=== PATIENT | female | born 1970 | race Caucasian/White ===

== ENCOUNTER 2016-11-16 19:12 | Inpatient (IN) | payer MEDICAID ==
[~2016-11-16] VITALS: Ht 170.2 cm; Wt 68.5 kg
[~2016-11-16 19:12] MED LIST: ALPR1TAB7; CEFP250T2 PO; FRNCD3C PO; HYDR-3816 PO; KETO75CA PO; LEVO125T6; LOSA50TA36 PO; LVT.025T PO; SIMV10TA3 PO; paxil
[2016-11-16] MEDS ORDERED: RX-NITROGLYCERIN 0.4 MG TAB BTL 25'S SL ONE (19:30)
[2016-11-16] MEDS ORDERED: ASPIRIN 81 MG CHEW (CHILDREN'S ASA) PO ONE (19:30)
[2016-11-16 19:32] LABS: BASOPHILS % (AUTO) 0 % (0-10); EOSINOPHILS # (AUTO) 0.3 10^3/uL (0.0-0.3); EOSINOPHILS % (AUTO) 3 % (0-10); LYMPHOCYTES # (AUTO) 3.6 X 10^3 (1.0-4.0); LYMPHOCYTES % (AUTO) 40 % (12-44); MEAN CORPUSCULAR HEMOGLOBIN 32 PG (25-34); MEAN CORPUSCULAR HGB CONC 34 G/DL (32-36); MEAN CORPUSCULAR VOLUME 92 FL (80-99); MEAN PLATELET VOLUME 10.2 FL (7.4-10.4); MONOCYTES # (AUTO) 0.7 X 10^3 (0.0-1.0); MONOCYTES % (AUTO) 8 % (0-12); NEUTROPHILS # (AUTO) 4.5 X 10^3 (1.8-7.8); NEUTROPHILS % (AUTO) 50 % (42-75); PLATELET COUNT 372 10^3/uL (130-400); RED BLOOD COUNT 3.99 10^6/uL (4.35-5.85); WHITE BLOOD COUNT 9.1 10^3/uL (4.3-11.0)
[2016-11-16 19:42] LABS: INR 0.9 (0.8-1.4)
--- NOTE | 2016-11-16 19:48 | Diagnostic Imaging Report ---
INDICATION: Chest pain. COMPARISON: None. FINDINGS: Portable upright view of the chest is obtained. Heart size is normal. The pulmonary vessels appear unremarkable. There is no pneumothorax, mediastinal widening or pleural fluid demonstrated. The lungs are clear. IMPRESSION: Negative chest. Dictated by: Dictated on workstation # [id number]
[2016-11-16 19:52] LABS: ALANINE AMINOTRANSFERASE 14 U/L (0-55); ALBUMIN 3.8 G/DL (3.2-4.5); ANION GAP 11 MMOL/L (5-14); ASPARTATE AMINO TRANSFERASE 15 U/L (5-34); BILIRUBIN,TOTAL 0.1 MG/DL (0.1-1.0); BLOOD UREA NITROGEN 8 MG/DL (7-18); BUN/CREATININE RATIO 11; CALCIUM 8.7 MG/DL (8.5-10.1); CARBON DIOXIDE 18 MMOL/L (21-32); CHLORIDE 107 MMOL/L (98-107); CREATININE SERUM 0.71 MG/DL (0.60-1.30); GFR ESTIMATED > 60; GLUCOSE 105 MG/DL (70-105); MAGNESIUM 2.2 MG/DL (1.8-2.4); SODIUM 136 MMOL/L (135-145); TOTAL PROTEIN 6.8 G/DL (6.4-8.2)
[2016-11-16] MEDS ORDERED: morphine INJ 10 MG/ML 1ML (SYR OR VIAL) IVP STA ×2 (19:52→20:59)
[2016-11-16 19:53] LABS: MYOGLOBIN SERUM 17.7 NG/ML (10.0-92.0)
--- NOTE | 2016-11-16 19:56 | ED Chest Pain ---
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 REPORTS PAIN MIDSTERNAL RADIATING INTO LT ARM. NO OTHER C/O VOICED Nursing Sepsis Screen: No Definite Risk Source: patient, family Exam Limitations: no limitations History of Present Illness Time seen by provider: 19:18 Initial Comments Here with report of central chest pain that radiates to her left arm and she reports that it's sharp and intense. It has been going on for 2 hours and has persisted. She had similar episode a few days ago that went away. Today it is not resolving. It is associated with shortness of breath but denies nausea, vomiting or diaphoresis. She has never had evaluation for chest pain previously. Timing/Duration: 1-3 hours Severity/Quality: moderate, severe, sharp Location: central Radiation: arms Activities at Onset: none Prior CP/Workup: no prior chest pain ASA po HOUSING DEVELOPMENT SPECIALIST: No NTG SL HOUSING DEVELOPMENT SPECIALIST: No Associated Symptoms: No abdominal pain, No back pain, No diaphoresis, No dizziness, No fever/chills, No nausea/vomiting, No rash, shortness of breathNo weakness Allergies and Home Medications Allergies Coded Allergies: Sulfa (Sulfonamide Antibiotics) (Unverified Allergy, Unknown, N/V, 11/15/14 ) acetaminophen (Unverified Allergy, Unknown, DIZZY, FACE FLUSH, 11/15/14) oxycodone (Unverified Allergy, Unknown, DIZZY, FACE FLUSHES, 11/15/14) oxycodone HCl (Unverified Allergy, Unknown, DIZZY, FACE FLUSH, 11/15/14) tramadol (Unverified Allergy, Unknown, N/V, 11/15/14) Home Medications (Reported) Alprazolam 1 Mg Tablet #120 (Reported) Butalbital/Asa/Caffeine/Cod 1 Ea Cap 1 EACH PO Q4HR PRN (Reported) FOR HEADACHES Hydrocodone/Acetaminophen 1 Each Tablet #10 1 EACH PO Q6H Prescribed by: LIU FIELD on 02/28/16 1330 Levothyroxine Sodium 25 Mcg Tablet 3 EACH PO DAILY (Reported) Levothyroxine Sodium 125 Mcg Tablet #90 (Reported) Losartan Potassium 50 Mg Tablet #30 (Reported) Simvastatin 10 Mg Tablet #30 (Reported) Review of Systems Constitutional: see HPINo chills, No fever EENTM: No Symptoms Reported Respiratory: See HPI Cardiovascular: See HPI Gastrointestinal: See HPIDenies Diarrhea, Denies Nausea, Denies Vomiting Genitourinary: No Symptoms Reported Musculoskeletal: no symptoms reported All Other Systems Reviewed Negative Unless Noted: Yes Past Docwuri-Wjkufj-Dymomp Hx Patient Social History Alcohol Use: Denies Use Recreational Drug Use: No Smoking Status: Current Everyday Smoker Type Used: Cigarettes Recent Foreign Travel: No Contact w/Someone Who Travel: No Recent Infectious Disease Expo: No Recent Hopitalizations: No Surgeries HX Surgeries: Yes (cyst removal) Surgeries: Appendectomy, Hysterectomy Respiratory Hx Respiratory Disorders: No Cardiovascular Hx Cardiac Disorders: Yes Cardiac Disorders: Hypertension Neurological Hx Neurological Disorders: Yes Neurological Disorders: Headaches /Migraines Reproductive System Hx Reproductive Disorders: Yes (IRREGULAR PERIODS, DUB, UTERINE PROLAPSE) Genitourinary Hx Genitourinary Disorders: No Gastrointestinal Hx Gastrointestinal Disorders: No Musculoskeletal Hx Musculoskeletal Disorders: No Endocrine Hx Endocrine Disorders: Yes Endocrine Disorders: Hypothyroidsim HEENT HX ENT Disorders: No Cancer Hx Cancer: Yes Cancer: Melanoma Psychosocial Hx Psychiatric Problems: Yes Behavioral Health Disorders: Anxiety Integumentary HX Skin/Integumentary Disorder: No Blood Transfusions Hx Blood Disorders: Yes (anemia) Adverse Reaction to a Blood Tr: No Reviewed Nursing Assessment Reviewed/Agree w Nursing PMH: Yes Family Medical History Significant Family History: No Pertinent Family Hx Physical Exam Vital Signs Vital Sign - Last 12Hours 11/16/16 19:17 Temp 98.3 Pulse 89 Resp 24 B/P 169/110 Pulse Ox 95 O2 Delivery Room Air Capillary Refill : Less Than 3 Seconds General Appearance: No Apparent Distress WD/WN HEENT: PERRL/EOMI Pharynx Normal Neck: Non Tender Supple Respiratory: Lungs Clear Normal Breath Sounds Cardiovascular: Regular Rate, Rhythm No Murmur Normal Peripheral Pulses Gastrointestinal: Non Tender Soft Extremity: Normal Range of Motion Non Tender Neurologic/Psychiatric: Alert Oriented x3 Skin: Normal Color Warm/Dry Focused Exam Lactic Acid Level Laboratory Tests Test 11/16/16 19:23 Alanine Aminotransferase (ALT/SGPT) 14U/L (0-55) Albumin 3.8G/DL (3.2-4.5) Alkaline Phosphatase 156U/L (40-136) H Anion Gap 11MMOL/L (5-14) Aspartate Amino Transf (AST/SGOT) 15U/L (5-34) BUN/Creatinine Ratio 11 Blood Urea Nitrogen 8MG/DL (7-18) Calcium Level 8.7MG/DL (8.5-10.1) Carbon Dioxide Level 18MMOL/L (21-32) L Chloride Level 107MMOL/L (98-107) Creatinine 0.71MG/DL (0.60-1.30) Estimat Glomerular Filtration Rate > 60 Glucose Level 105MG/DL (70-105) Magnesium Level 2.2MG/DL (1.8-2.4) Myoglobin 17.7NG/ML (10.0-92.0) Potassium Level 4.0MMOL/L (3.6-5.0) Sodium Level 136MMOL/L (135-145) Thyroid Stimulating Hormone (TSH) 4.98UIU/ML (0.35-4.94) H Total Bilirubin 0.1MG/DL (0.1-1.0) Total Protein 6.8G/DL (6.4-8.2) Troponin I < 0.30NG/ML (<0.30) Progress/Results/Core Measures Results/Orders Lab Results Laboratory Tests Test 11/16/16 19:23 Range/Units Activated Partial Thromboplast Time 24 24-35 SEC Alanine Aminotransferase (ALT/SGPT) 14 0-55 U/L Albumin 3.8 3.2-4.5 G/DL Alkaline Phosphatase 156 H 40-136 U/L Anion Gap 11 5-14 MMOL/L Aspartate Amino Transf (AST/SGOT) 15 5-34 U/L BUN/Creatinine Ratio 11 Basophils # (Auto) 0.0 0.0-0.1 10^3/uL Basophils (%) (Auto) 0 0-10 % Blood Urea Nitrogen 8 7-18 MG/DL Calcium Level 8.7 8.5-10.1 MG/DL Carbon Dioxide Level 18 L 21-32 MMOL/L Chloride Level 107 98-107 MMOL/L Creatinine 0.71 0.60-1.30 MG/DL D-Dimer 0.59 H 0.00-0.49 UG/ML Eosinophils # (Auto) 0.3 0.0-0.3 10^3/uL Eosinophils (%) (Auto) 3 0-10 % Estimat Glomerular Filtration Rate > 60 Glucose Level 105 70-105 MG/DL Hematocrit 37 35-52 % Hemoglobin 12.6 11.5-16.0 G/DL INR Comment 0.9 0.8-1.4 Lymphocytes # (Auto) 3.6 1.0-4.0 X 10^3 Lymphocytes (%) (Auto) 40 12-44 % Magnesium Level 2.2 1.8-2.4 MG/DL Mean Corpuscular Hemoglobin 32 25-34 PG Mean Corpuscular Hemoglobin Concent 34 32-36 G/DL Mean Corpuscular Volume 92 80-99 FL Mean Platelet Volume 10.2 7.4-10.4 FL Monocytes # (Auto) 0.7 0.0-1.0 X 10^3 Monocytes (%) (Auto) 8 0-12 % Myoglobin 17.7 10.0-92.0 NG/ML Neutrophils # (Auto) 4.5 1.8-7.8 X 10^3 Neutrophils (%) (Auto) 50 42-75 % Platelet Count 372 130-400 10^3/uL Potassium Level 4.0 3.6-5.0 MMOL/L Prothrombin Time 12.0 L 12.2-14.7 SEC Red Blood Count 3.99 L 4.35-5.85 10^6/uL Red Cell Distribution Width 15.0 H 10.0-14.5 % Sodium Level 136 135-145 MMOL/L Thyroid Stimulating Hormone (TSH) 4.98 H 0.35-4.94 UIU/ML Total Bilirubin 0.1 0.1-1.0 MG/DL Total Protein 6.8 6.4-8.2 G/DL Troponin I < 0.30 <0.30 NG/ML White Blood Count 9.1 4.3-11.0 10^3/uL My Orders Orders-LIU FIELD MD Cbc With Automated Diff (11/16/16 19:26) Magnesium (11/16/16 19:26) Chest 1 View, Ap/Pa Only (11/16/16 19:26) Ekg Tracing (11/16/16 19:26) Cardiac Profile 1 (11/16/16 19:26) Comprehensive Metabolic Panel (11/16/16 19:26) Myoglobin Serum (11/16/16 19:26) Protime With Inr (11/16/16 19:26) Partial Thromboplastin Time (11/16/16 19:26) O2 (11/16/16 19:26) Monitor-Rhythm Ecg Trace Only (11/16/16 19:26) Lipid Panel (11/17/16 06:00) Aspirin Chewable Tablet (Baby Aspirin Ch (11/16/16 19:30) Rx-Nitroglycerin Sl Tabs (Rx-Nitrostat S (11/16/16 19:30) Saline Lock/Iv-Start (11/16/16 19:26) Fibrin Degradation Products (11/16/16 19:26) Morphine Injection (Morphine Injection (11/16/16 19:52) Thyroid Stimulating Hormone (11/16/16 19:56) Ct Angio Chest W (11/16/16 20:56) Saline Lock/Iv-Start (11/16/16 20:56) Ns Iv 1000 Ml (Sodium Chloride 0.9%) (11/16/16 20:56) Ketorolac Injection (Toradol Injection) (11/16/16 20:59) Morphine Injection (Morphine Injection (11/16/16 20:59) Iohexol Injection (Omnipaque 350 Mg/Ml 1 (11/16/16 21:15) Ns (Ivpb) (Sodium Chloride 0.9% Ivpb Bag (11/16/16 21:15) Metoprolol Succinate (Xl) Tab (Toprol Xl (11/16/16 22:45) Medications Given in ED Current Medications Medications Dose Ordered Sig/Sandra Route Start Time Stop Time Status Last Admin Dose Admin Aspirin 324 mg ONCE ONCE PO 11/16/16 19:30 11/16/16 19:31 DC 11/16/16 19:33 324 MG Iohexol 150 ml ONCE ONCE IV 11/16/16 21:15 11/16/16 21:16 DC 11/16/16 21:14 125 ML Metoprolol Succinate 25 mg ONCE ONCE PO 11/16/16 22:45 11/16/16 22:46 DC 11/16/16 22:45 25 MG Nitroglycerin 0.4 mg 0.4 mg UD ONCE SL 11/16/16 19:30 11/16/16 19:31 DC 11/16/16 19:33 0.4 MG Sodium Chloride 100 ml ONCE ONCE IV 11/16/16 21:15 11/16/16 21:16 DC 11/16/16 21:14 80 ML Sodium Chloride 1,000 ml @ 0 mls/hr Q0M ONCE IV 11/16/16 20:56 11/16/16 20:58 DC 11/16/16 21:53 1,000 MLS/HR Vital Signs/I&O Vital Sign - Last 12Hours 11/16/16 19:17 Temp 98.3 Pulse 89 Resp 24 B/P 169/110 Pulse Ox 95 O2 Delivery Room Air Blood Pressure Mean: 129 Progress Note : Progress Note Seen and evaluated. IV, labs, EKG and chest x-ray ordered. ASA 324 mg by mouth and nitroglycerin sublingual ordered. She did receive 3 doses which did reduce her pain and blood pressure but did not resolve it. Morphine 2 mg IV ordered. Monitor patient. Patient complains of persistent pain and was given morphine 4 mg IV as well as Toradol 30 mg IV and she did not have resolution of her pain. Labs, EKG and chest x-ray reviewed. CT chest angiogram ordered for elevated d-dimer. This did not show any pulmonary embolism but there is concerns about pneumonitis. 2235: I did discuss the case with Dr. HART regarding persistent chest pain. We will admit the patient, observation status. Consult Dr. Trejo which was done and case reviewed with him. Dr. Faustin will be consulted in the morning regarding pneumonitis concerns. Patient and family agree with plan. ECG Initial ECG Impression Date: Nov 16, 2016 Initial ECG Impression Time: 19:22 Initial ECG Rate: 81 Initial ECG Rhythm: Normal Sinus Comment Sinus rhythm with normal axis. Inferior Q waves noted. Question of mild ST depression in V2 through V4. No evidence of ST elevation ND. Interpreted by me. Diagnostic Imaging Diagonstic Imaging: Xray Plain Films/CT/US/NM/MRI: chest Comments NAME: RADHATRACIEELIANA Kothari MED REC#: [id number] PT STATUS: REG ER : 1970 PHYSICIAN: LIU FIELD MD ADMIT DATE: 11/16/16/ER Signed Date of Exam: 11/16/16 CHEST 1 VIEW, AP/PA ONLY INDICATION: Chest pain. COMPARISON: None. FINDINGS: Portable upright view of the chest is obtained. Heart size is normal. The pulmonary vessels appear unremarkable. There is no pneumothorax, mediastinal widening or pleural fluid demonstrated. The lungs are clear. IMPRESSION: Negative chest. Dictated by: Dictated on workstation # [id number] Dict: 11/16/161945 Trans: 11/16/161953 [facility] [id number] Interpreted by: ROSE KAPOOR DO Electronically signed by:ROSE KAPOOR DO 11/16/161955 Departure Communication Time/Spoke to Admitting Phy: 22:32 Time/Spoke to Consulting Physi: 22:35 Impression Impression: Primary Impression: Chest pain Qualified Code: R07.9 - Chest pain, unspecified Additional Impression: Pneumonitis Disposition: ADMITTED INPATIENT Condition: Stable Decision to Admit Reason: Admit from ER (General) Decision to Admit/Date: Nov 16, 2016 Time/Decision to Admit Time: 22:35 Departure-Patient Inst. Referrals: NO,LOCAL PHYSICIAN (PCP/Family) Primary Care Physician LIU FIELD MD Nov 16, 2016 19:56
[2016-11-16] MEDS ORDERED: NS IV 1000 ML 1,000 ML IV ONE (20:56)
[2016-11-16] MEDS ORDERED: KETOROLAC 30 MG/ML VIAL IVP STA (20:59)
[2016-11-16] MEDS ORDERED: NS 100 ML (IVPB) BAG IV ONE (21:15)
[2016-11-16] MEDS ORDERED: IOHEXOL 350 MG/ML 150 ML (OMNIPAQUE 350) VIAL IV ONE (21:15)
--- NOTE | 2016-11-16 21:45 | Diagnostic Imaging Report ---
PROCEDURE: CT angiography of the chest with contrast. TECHNIQUE: Multiple contiguous axial images were obtained through the chest after uneventful bolus administration of intravenous contrast. Reconstructed CTA MIP acquisitions were also performed. INDICATION: Left arm numbness and chest pain. FINDINGS: There is adequate opacification demonstrated of the pulmonary arterial tree. There is no evidence of a pulmonary arterial defect to suggest a pulmonary embolism. There is mild dilation of the ascending aorta measuring up to 42 mm. There is no dissection. There is no pericardial effusion. There is no evidence of pathologic enlargement of mediastinal lymph nodes. There are small AP window nodes present which are not enlarged. There is dependent atelectasis demonstrated at the lung bases. There also however is a subtle suggestion of a diffuse abnormal alveolar airspace opacification demonstrated predominantly within the upper lungs. There are a few peripheral changes of paraseptal emphysema within both lungs. There is no effusion. There is no pneumothorax. The visualized portion of the upper abdomen is unremarkable. There are no acute osseous abnormalities. IMPRESSION: 1. No CT angiographic evidence of pulmonary embolus. 2. Ascending aortic ectasia without dissection. 3. There are diffuse regions of abnormal subtle low density alveolar opacification demonstrated throughout the lungs suggesting a diffuse pneumonitis. Given this appearance, considerations would also include entities such as a hypersensitivity pneumonia or early eosinophilic pneumonia. 4. No pathologic adenopathy evident. 5. Upper abdomen is unremarkable. Dictated by: Dictated on workstation # [id number]
[2016-11-16] MEDS ORDERED: ONDANSETRON 4 MG/2 ML (SDV) Z0FRAN IV PRN (23:45)
[2016-11-16] MEDS ORDERED: morphine INJ 4 MG/ML 1 ML (VIAL/SYRINGE) IV PRN (23:45)
[2016-11-16] MEDS ORDERED: NS IV 1000 ML 1,000 ML IV SCH (23:45)
[2016-11-16] MEDS ORDERED: CATHETER FLUSH 10 ML SYR IV PRN (23:45)
[2016-11-17] VITALS (14 sets, daily range): BP systolic 92–157; BP diastolic 73–93
[2016-11-17 02:58] LABS: MYOGLOBIN SERUM 574.7 NG/ML (10.0-92.0)
[2016-11-17] MEDS ORDERED: ENOXAPARIN 80 MG/0.8 ML (LOVENOX) SYR SC ONE (03:15)
[2016-11-17] MEDS: NITROGLYCERIN SUBLINGUAL 0.4 MG TAB (NITROSTAT) SL PRN ×3 (04:43→05:14)
[2016-11-17 05:16] LABS: BASOPHILS % (AUTO) 0 % (0-10); EOSINOPHILS # (AUTO) 0.2 10^3/uL (0.0-0.3); EOSINOPHILS % (AUTO) 3 % (0-10); LYMPHOCYTES # (AUTO) 3.5 X 10^3 (1.0-4.0); LYMPHOCYTES % (AUTO) 45 % (12-44); MEAN CORPUSCULAR HEMOGLOBIN 31 PG (25-34); MEAN CORPUSCULAR HGB CONC 33 G/DL (32-36); MEAN CORPUSCULAR VOLUME 94 FL (80-99); MEAN PLATELET VOLUME 10.1 FL (7.4-10.4); MONOCYTES # (AUTO) 0.7 X 10^3 (0.0-1.0); MONOCYTES % (AUTO) 9 % (0-12); NEUTROPHILS # (AUTO) 3.4 X 10^3 (1.8-7.8); NEUTROPHILS % (AUTO) 44 % (42-75); PLATELET COUNT 327 10^3/uL (130-400); RED BLOOD COUNT 3.61 10^6/uL (4.35-5.85); RED CELL DISTRIBUTION WIDTH 15.2 % (10.0-14.5); WHITE BLOOD COUNT 7.8 10^3/uL (4.3-11.0)
[2016-11-17 05:37] LABS: ALANINE AMINOTRANSFERASE 15 U/L (0-55); ALBUMIN 3.2 G/DL (3.2-4.5); ANION GAP 8 MMOL/L (5-14); ASPARTATE AMINO TRANSFERASE 35 U/L (5-34); BILIRUBIN,TOTAL < 0.1 MG/DL (0.1-1.0); BLOOD UREA NITROGEN 6 MG/DL (7-18); BUN/CREATININE RATIO 9; CALCIUM 8.1 MG/DL (8.5-10.1); CARBON DIOXIDE 19 MMOL/L (21-32); CHLORIDE 111 MMOL/L (98-107); CREATININE SERUM 0.66 MG/DL (0.60-1.30); GFR ESTIMATED > 60; GLUCOSE 107 MG/DL (70-105); POTASSIUM 3.9 MMOL/L (3.6-5.0); SODIUM 138 MMOL/L (135-145); TOTAL PROTEIN 5.7 G/DL (6.4-8.2)
[2016-11-17 05:54] LABS: CHOLESTEROL 185 MG/DL (< 200); DIRECT LDL 81 MG/DL (1-129); TRIGLYCERIDES 209 MG/DL (<150); VLDL CHOLESTEROL 42 MG/DL (5-40)
[2016-11-17] MEDS: CATHETER FLUSH 10 ML SYR IV SCH ×3 (06:00→20:35)
[2016-11-17] MEDS ORDERED: LIDOCAINE 1% INJ 20 ML (XYLOCAINE) VIAL ONE (07:06)
[2016-11-17] MEDS ORDERED: HEParin (CATH LAB) 2,000 ML IV ONE (07:06)
[2016-11-17] MEDS ORDERED: fentaNYL INJECTION 100 MCG/2 ML AMP ONE (07:12)
[2016-11-17] MEDS ORDERED: MIDAZOLAM 5 MG/5 ML (VERSED) VIAL ONE (07:12)
--- NOTE | 2016-11-17 07:12 | Consultation-Cardiology ---
HPI-Cardiology Cardiology Consultation Date of Consultation 11/17/16 Date of Admission Indication: Chest pain HPI 46 years old lady with history of hypertension, hyperlipidemia and tobaccoism, patient started having chest pain on and off yesterday, described it as achiness in the retrosternal area and left side of her chest. Admit having mild shortness of breath continue to wax and wane. Continue to have active pain despite nitroglycerin. Her first troponin was negative second troponin returned to be elevated. Upon my evaluation she was still having mild chest discomfort. She denied any palpitation, syncope or near syncopal episodes. Denied any claudication. Home Medications & Allergies Allergies: Coded Allergies: Sulfa (Sulfonamide Antibiotics) (Unverified Allergy, Unknown, N/V, 11/15/14 ) acetaminophen (Unverified Allergy, Unknown, DIZZY, FACE FLUSH, 11/15/14) oxycodone (Unverified Allergy, Unknown, DIZZY, FACE FLUSHES, 11/15/14) oxycodone HCl (Unverified Allergy, Unknown, DIZZY, FACE FLUSH, 11/15/14) tramadol (Unverified Allergy, Unknown, N/V, 11/15/14) Home Medication List Reviewed: Yes MYJ-Oondfs-Pbllct Hx Patient Social History Alcohol Use: Denies Use Recreational Drug Use: No Smoking Status: Current Everyday Smoker Type Used: Cigarettes Recent Foreign Travel: No Recent Infectious Disease Expo: No Recent Hopitalizations: No Physical Abuse Screen: No Sexual Abuse: No Immunizations Up To Date Date of Influenza Vaccine: Nov 13, 2016 Past Medical History Past medical history as discussed below Family Medical History Significant Family History: No Pertinent Family Hx Family Medical Hx Multiple family member from mother's side had history of heart disease Constitutional: no symptoms reported see HPI EENTM: no symptoms reported see HPI Respiratory: see HPINo cough, dyspnea on exertionNo hemoptysis, No orthopnea , No phlegm, short of breathNo stridor, No wheezing, No other Cardiovascular: see HPI chest painNo edema, No Hx of Intervention, No palpitations, No syncope, No vascular heart diseas, No other Gastrointestinal: no symptoms reported see HPI Genitourinary: no symptoms reported see HPI Musculoskeletal: no symptoms reported see HPI Skin: no symptoms reported see HPI Psychiatric/Neurological: No Symptoms Reported See HPI Reviewed Test Results Reviewed Test Results Lab Laboratory Tests Test 11/16/16 19:23 11/17/16 02:25 11/17/16 05:00 Range/Units Activated Partial Thromboplast Time 24 24-35 SEC Alanine Aminotransferase (ALT/SGPT) 14 15 0-55 U/L Albumin 3.8 3.2 3.2-4.5 G/DL Alkaline Phosphatase 156 H 134 40-136 U/L Anion Gap 11 8 5-14 MMOL/L Aspartate Amino Transf (AST/SGOT) 15 35 H 5-34 U/L BUN/Creatinine Ratio 11 9 Basophils # (Auto) 0.0 0.0 0.0-0.1 10^3/uL Basophils (%) (Auto) 0 0 0-10 % Blood Urea Nitrogen 8 6 L 7-18 MG/DL Calcium Level 8.7 8.1 L 8.5-10.1 MG/DL Carbon Dioxide Level 18 L 19 L 21-32 MMOL/L Chloride Level 107 111 H 98-107 MMOL/L Creatinine 0.71 0.66 0.60-1.30 MG/DL D-Dimer 0.59 H 0.00-0.49 UG/ML Eosinophils # (Auto) 0.3 0.2 0.0-0.3 10^3/uL Eosinophils (%) (Auto) 3 3 0-10 % Estimat Glomerular Filtration Rate > 60 > 60 Glucose Level 105 107 H 70-105 MG/DL Hematocrit 37 34 L 35-52 % Hemoglobin 12.6 11.3 L 11.5-16.0 G/DL INR Comment 0.9 0.8-1.4 Lymphocytes # (Auto) 3.6 3.5 1.0-4.0 X 10^3 Lymphocytes (%) (Auto) 40 45 H 12-44 % Magnesium Level 2.2 1.8-2.4 MG/DL Mean Corpuscular Hemoglobin 32 31 25-34 PG Mean Corpuscular Hemoglobin Concent 34 33 32-36 G/DL Mean Corpuscular Volume 92 94 80-99 FL Mean Platelet Volume 10.2 10.1 7.4-10.4 FL Monocytes # (Auto) 0.7 0.7 0.0-1.0 X 10^3 Monocytes (%) (Auto) 8 9 0-12 % Myoglobin 17.7 574.7 H 10.0-92.0 NG/ML Neutrophils # (Auto) 4.5 3.4 1.8-7.8 X 10^3 Neutrophils (%) (Auto) 50 44 42-75 % Platelet Count 372 327 130-400 10^3/uL Potassium Level 4.0 3.9 3.6-5.0 MMOL/L Prothrombin Time 12.0 L 12.2-14.7 SEC Red Blood Count 3.99 L 3.61 L 4.35-5.85 10^6/uL Red Cell Distribution Width 15.0 H 15.2 H 10.0-14.5 % Sodium Level 136 138 135-145 MMOL/L Thyroid Stimulating Hormone (TSH) 4.98 H 0.35-4.94 UIU/ML Total Bilirubin 0.1 < 0.1 L 0.1-1.0 MG/DL Total Protein 6.8 5.7 L 6.4-8.2 G/DL Troponin I < 0.30 2.96 *H <0.30 NG/ML White Blood Count 9.1 7.8 4.3-11.0 10^3/uL Cholesterol Level 185 < 200 MG/DL HDL Cholesterol 37 L 40-60 MG/DL LDL Cholesterol Direct 81 1-129 MG/DL Triglycerides Level 209 H <150 MG/DL VLDL Cholesterol 42 H 5-40 MG/DL Physical Exam Vital Signs Vital Sign - Last 12Hours Capillary Refill : Less Than 3 Seconds General Appearance: No Apparent Distress WD/WN Eyes: Bilateral Eye EOMI, Bilateral Eye Normal Inspection, Bilateral Eye PERRL HEENT: PERRL/EOMI TMs Normal Normal ENT Inspection Pharynx Normal Neck: Full Range of Motion Normal Inspection Non Tender Supple Carotid Bruit Respiratory: Chest Non Tender Lungs Clear Normal Breath Sounds No Accessory Muscle Use No Respiratory Distress Cardiovascular: Regular Rate, Rhythm No Edema No Gallop No JVD No Murmur Normal Peripheral Pulses Gastrointestinal: Normal Bowel Sounds No Organomegaly No Pulsatile Mass Non Tender Soft Back: Normal Inspection No CVA Tenderness No Vertebral Tenderness Extremity: Normal Capillary Refill Normal Inspection Normal Range of Motion Non Tender No Calf Tenderness No Pedal Edema Neurologic/Psychiatric: Alert Oriented x3 No Motor/Sensory Deficits Normal Mood/Affect Skin: Normal Color Warm/Dry Lymphatic: No Adenopathy A/P-Cardiology Admission Diagnosis Non-ST elevation elevation myocardial infarction Coronary artery disease Hypertension Hyperlipidemia Assessment/Plan Non-ST elevation myocardial infarction, coronary artery disease. Still having active chest pain. Planning to proceed with cardiac catheterization today. Chest pain, shortness of breath, probably secondary to coronary artery disease planning to proceed with a cardiac catheterization today. Hypertension, monitor blood pressure, patient has been on losartan as an outpatient restart home medication Hyperlipidemia, has been on simvastatin as an outpatient. Mildly elevated lipids. Planning to switch to Lipitor. Tobaccoism, educated on smoking cessation Family history of atherosclerosis Clinical Quality Measures AMI/AHF: ASA po Prior to arrival: No DVT/VTE Risk/Contraindication: Risk Factor Score Per Nursin RFS Level Per Nursing on Admit: 2=Moderate JAILENE MILLER MD Nov 17, 2016 07:12
--- NOTE | 2016-11-17 07:12 | Cardiac Procedure Note-CS/ASA ---
Pre-Procedure Note Pre-Op Procedure Note H&P Reviewed The H&P was reviewed, patient examined and no changes noted. Date H&P Reviewed: Nov 17, 2016 Time H&P Reviewed: 07:12 Conscious Sedation Pre-Proced Time Reviewed: 07:12 ASA Class: 3 Airway Mallampati Classification: ([place] appropriate class) I. II. III, IV Lungs Heart ASA score ASA 1: a normal healthy patient ASA 2: a patient with a mild systemic disease (mid diabetes, controlled hypertension, obesity x ASA 3: a patient with a severe systemic disease that limits activity (angina , COPD, prior Myocardial infarction) ASA 4: a patient with an incapacitating disease that is a constant threat to life (CHF, renal failure) ASA 5: a moribund patient not expected to survive 24 hrs. (ruptured aneurysm) ASA 6: a declared brain patient whose organs are being harvested. For emergent operations, add the letter E after the classification Grade 3 Sedation Plan: Analgesia, Amnesia, Plan communicated to team members, Discussed options with patient/fam, Discussed risks with patient/fam Note The patient is an appropriate candidate to undergo the planned procedure, sedation, and anesthesia. The patient immediately re-assessed prior to indication. JAILENE MILLER MD Nov 17, 2016 07:12
[2016-11-17] MEDS ORDERED: NS IV 1000 ML 1,000 ML IV SCH (07:15)
--- NOTE | 2016-11-17 07:16 | Pulmonary Consultation ---
History of Present Illness History of Present Illness Date of Consultation 11/17/16 07:11 Date of Admission History of Present Illness 46yo presented secondary to central CP with radiation to left arm that started 2 hrs prior to admission and progressive SOB. She had similar episode a few days ago that went away. CT scan shows patchy bilateral infiltrates bilaterally. Allergies and Home Medications Allergies Coded Allergies: Sulfa (Sulfonamide Antibiotics) (Unverified Allergy, Unknown, N/V, 11/15/14 ) acetaminophen (Unverified Allergy, Unknown, DIZZY, FACE FLUSH, 11/15/14) oxycodone (Unverified Allergy, Unknown, DIZZY, FACE FLUSHES, 11/15/14) oxycodone HCl (Unverified Allergy, Unknown, DIZZY, FACE FLUSH, 11/15/14) tramadol (Unverified Allergy, Unknown, N/V, 11/15/14) Home Medications (Reported) Alprazolam 1 Mg Tablet #120 (Reported) Butalbital/Asa/Caffeine/Cod 1 Ea Cap 1 EACH PO Q4HR PRN (Reported) FOR HEADACHES Hydrocodone/Acetaminophen 1 Each Tablet #10 1 EACH PO Q6H Prescribed by: LIU FIELD on 02/28/16 1330 Levothyroxine Sodium 25 Mcg Tablet 3 EACH PO DAILY (Reported) Levothyroxine Sodium 125 Mcg Tablet #90 (Reported) Losartan Potassium 50 Mg Tablet #30 (Reported) Simvastatin 10 Mg Tablet #30 (Reported) Past Rnxmoxe-Hppeaw-Hkqjyg Hx Patient Social History Alcohol Use: Denies Use Recreational Drug Use: No Smoking Status: Current Everyday Smoker Type Used: Cigarettes Recent Foreign Travel: No Contact w/Someone Who Travel: No Recent Infectious Disease Expo: No Recent Hopitalizations: No Physical Abuse Screen: No Sexual Abuse: No Immunizations Up To Date PED Vaccines UTD: Yes Date of Influenza Vaccine: Nov 13, 2016 Seasonal Allergies Seasonal Allergies: Yes Surgeries HX Surgeries: Yes (cyst removal) Surgeries: Appendectomy, Hysterectomy Respiratory Hx Respiratory Disorders: No Cardiovascular Hx Cardiac Disorders: Yes Cardiac Disorders: Hypertension Neurological Hx Neurological Disorders: Yes Neurological Disorders: Headaches /Migraines Reproductive System Hx Reproductive Disorders: Yes (IRREGULAR PERIODS, DUB, UTERINE PROLAPSE) Genitourinary Hx Genitourinary Disorders: No Gastrointestinal Hx Gastrointestinal Disorders: No Musculoskeletal Hx Musculoskeletal Disorders: No Musculoskeletal Disorders: Degenerate Disk Disease, Chronic Back Pain Endocrine Hx Endocrine Disorders: Yes Endocrine Disorders: Hypothyroidsim HEENT HX ENT Disorders: No Cancer Hx Cancer: Yes Cancer: Skin Psychosocial Hx Psychiatric Problems: Yes Behavioral Health Disorders: Anxiety Integumentary HX Skin/Integumentary Disorder: No Blood Transfusions Hx Blood Disorders: Yes (anemia) Adverse Reaction to a Blood Tr: No Reviewed Nursing Assessment Reviewed/Agree w Nursing PMH: Yes Family Medical History Significant Family History: No Pertinent Family Hx Exam Exam Vital Signs Date Time Temp Pulse Resp B/P Pulse Ox O2 Delivery O2 Flow Rate FiO2 11/17/16 04:04 97.5 63 140/91 18 Room Air 11/17/16 00:57 62 11/17/16 00:04 96.6 63 18 157/90 98 Room Air 11/16/16 23:56 63 11/16/16 23:56 97 Nasal Cannula 11/16/16 23:00 63 18 96 11/16/16 19:17 Room Air 11/16/16 19:17 98.3 89 24 169/110 95 Room Air I & O 11/17/16 07:00 Intake Total 300 ml Balance 300 ml General Appearance: No Apparent Distress WD/WN HEENT: PERRL/EOMI Pharynx Normal Neck: Non Tender Supple Respiratory: Lungs Clear Normal Breath Sounds Cardiovascular: Regular Rate, Rhythm No Murmur Normal Peripheral Pulses Capillary Refill: Less Than 3 Seconds Extremity: Normal Range of Motion Non Tender Neurologic/Psychiatric: Alert Oriented x3 Skin: Normal Color Warm/Dry Results Lab Laboratory Tests 11/16/16 19:23 11/17/16 05:00 Assessment/Plan Assessment/Plan NSTEMI - 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
[2016-11-17] MEDS ORDERED: AZITHROMYCIN INJECTION 500 MG in NS (IVPB) 250 ML IV NR (07:30)
[2016-11-17] MEDS ORDERED: HEParin 1000 UNIT/ML (10ML VIAL) FOR BOLUS ONE (07:50)
[2016-11-17] MEDS ORDERED: NITROGLYCERIN DRIP 25 MG/D5W 250 ML IV ONE (07:50)
[2016-11-17] MEDS ORDERED: EPTIFIBATIDE BOLUS 20 ML IV ONE (07:52)
[2016-11-17] MEDS ORDERED: ATROPINE INJECTION 1 MG/10 ML SYR (ABBOTT) ONE (08:08)
[2016-11-17] MEDS ORDERED: ASPIRIN 81 MG CHEW (CHILDREN'S ASA) ONE (08:21)
[2016-11-17] MEDS ORDERED: NABU500T PO (08:22)
[2016-11-17] MEDS ORDERED: LEVO150T6 PO (08:22)
[2016-11-17] MEDS ORDERED: PANT40TA3 PO (08:22)
[2016-11-17] MEDS ORDERED: BUTA1CAP3 PO (08:22)
[2016-11-17] MEDS ORDERED: PARO40TA3 PO (08:22)
[2016-11-17] MEDS ORDERED: CHLO500T4 PO (08:22)
[2016-11-17] MEDS ORDERED: DICL75TA2 PO (08:22)
[2016-11-17] MEDS ORDERED: PATIENT MAY USE OWN MEDS, ALL PO SCH (08:30)
[2016-11-17] MEDS: TICAGRELOR 90 MG TABLET (BRILINTA) PO SCH ×2 (09:00→21:30)
[2016-11-17] MEDS: ASPIRIN E.C. 81 MG (ECOTRIN) TAB PO SCH (09:00)
[2016-11-17] MEDS ORDERED: ASPIRIN E.C. 325 MG (ECOTRIN) TABLET PO SCH (09:00)
--- NOTE | 2016-11-17 09:48 | CARDIAC CATHETERIZATION ---
PROCEDURE PHYSICIAN: JAILENE MILLER DATE OF PROCEDURE: 11/17/2016 REFERRING PHYSICIAN: Dr. Chatman. BRIEF HISTORY: Mrs. Jamison is a 46-year-old lady admitted with acute myocardial infarction, non-ST elevation [place]. She continued to have chest pain. She was brought for emergency cardiac catheterization. PROCEDURE NOTE: After explaining the procedure to the patient, all pros and cons were explained. All questions were answered. The patient signed a consent, then she was placed on the cardiac catheterization laboratory. The right groin was prepped in a sterile fashion. Local anesthesia applied to the right groin. 6-Kinyarwanda sheath was placed in the right femoral artery. Combination of right and left Danie catheter were used to access the right and left coronary system. Multiple views were obtained. Pigtail catheter advanced to the left ventricular cavity. Left ventriculogram was done. Pullback LV to aorta was done. Aortic arch angiogram was done. At that point I decided to proceed with percutaneous intervention. The patient was given 5000 units of heparin double bolus of Integrilin. FL 4.0 guide was advanced to the left coronary system. Whisper extra support was advanced through the circumflex that was totally occluded at the second obtuse marginal branch. After multiple manipulations I was able to cross the lesion, I advanced 20 x 15 Emerge balloon, passed it through the occluded area without inflating the balloons and then repeat angiogram showed flow in that area. Then I placed a balloon and inflated it. Then I proceeded with deployment of Xience Alpine stent 2.5 x 18 mm positioned carefully, deployed under 14 atmospheres which dilated the stent to 2.68 mm. The proximal portion was in the proper circumflex artery, which was the larger artery so I advanced 3.5 x 8 mm Emerge balloon. Inflated it under 12 atmospheres up to 3.75 mm proximally. Angiogram showed excellent results. At the end of the procedure, sheath was removed. Mynx device deployed. Hemostasis achieved. Total contrast used 190 mL, total radiation was 1181 mGy FINDINGS: HEMODYNAMICS: LV pressure 131/19, end-diastolic pressure of 19, aortic pressure 139/87, mean of 108. ANATOMY: 1. Left main coronary artery is bifurcating to left anterior descending and left circumflex artery with no obstructive disease. 2. Left anterior descending artery is moderate in size with mild disease, nonobstructive disease. 3. Left circumflex artery is totally occluded at the origin of the second obtuse marginal branch. Complex intervention. Successful balloon angioplasty, then stent deployment using 2.5 x 18 mm Xience Alpine stent, expanded to 2.68 mm distally and 3.75 proximally with excellent results. No residual stenosis was noted. 4. Right coronary artery is moderate in size with 40% stenosis proximally, nonobstructive disease. 5. Right coronary artery has mild disease 40 to 50% stenosis at the midportion, nonobstructive disease. 6. Left ventriculogram was done in the right anterior oblique position. The left ventricle is normal in size with normal systolic function. Estimated ejection fraction 60%. 7. Aortic arch angiogram is normal in size, slightly prominent proximally with normal origin of the innominate artery and subclavian artery and carotid artery. CONCLUSION: 1. Non-ST elevation myocardial infarction with total occlusion of circumflex artery distally at the origin of the second obtuse marginal branch. Successful complex intervention with stent deployment using Xience Alpine drug-eluting stent 2.5 x 18 mm, expanded distally to 2.68 mm and proximally to 3.75 mm with excellent results. No residual stenosis was noted. 2. Mild disease in the LAD and right coronary artery. 3. Normal left ventricular size and systolic function. Estimated ejection fraction 60%. Job ID: [id number] Dictated Date: 11/17/2016 08:33:15 Protective Signal Installer Date: 11/17/2016 09:31:59 / shoaib
[2016-11-17] MEDS: cefTRIAXone INJECTION 1,000 MG in NS (IVPB) 50 ML IV SCH (10:03)
[2016-11-17] MEDS: NS IV 1000 ML 1,000 ML IV SCH ×3 (10:03→21:41)
[2016-11-17] MEDS ORDERED: PROM25TA14 PO (10:35)
[2016-11-17] MEDS ORDERED: GABA800T2 PO (10:35)
[2016-11-17] MEDS: methylPREDNISolone 125 MG (Solu-MEDROL) VIAL IVP SCH ×2 (12:25→17:54)
[2016-11-17] MEDS ORDERED: ONDANSETRON 4 MG/2 ML (SDV) Z0FRAN IVP PRN (12:45)
[2016-11-17] MEDS: LOSARTAN 50 MG (COZAAR) TAB PO SCH (17:54)
[2016-11-17] MEDS: OMEGA 3 (FISH OIL) 1000 MG CAP PO SCH (17:54)
--- NOTE | 2016-11-17 19:57 | History & Physical-Hospitalist ---
HPI History of Present Illness: HPI/Chief Complaint Mrs. Jamison is a 46-year-old white female who been having intermittent chest pain for roughly the past week. It had been lasting several minutes in duration most notably with stress physical or emotional. On the day of her adssion she had more intense symptoms that did not marquis. They were associated with rtness of breath and diaphore. Finally at the insistence of her she came to emergency room where was noted that her troponin level was elevated and nonspecific ST changes were noted on her EKG. She was taken to the [facility] where she circumflex. She underwent successfull stenting per Dr. Zamora. Currently she reports resolution of her chest pain. Date Seen 11/17/16 Attending Physician Lowell Chatman MD PCP No,Local Physician Referring Physician Date of Admission Nov 17, 2016 at 08:22 Home Medications & Allergies Home Medications Reviewed patient Home Medication Reconciliation Form Allergies Allergies Coded Allergies acetaminophen (Unverified Adverse Reaction, Intermediate, DIZZY, FACE FLUSH, ) oxycodone (Unverified Adverse Reaction, Intermediate, DIZZY, FACE FLUSHES, ) oxycodone HCl (Unverified Adverse Reaction, Intermediate, DIZZY, FACE FLUSH, ) Sulfa (Sulfonamide Antibiotics) (Unverified Adverse Reaction, Mild, N/V, ) tramadol (Unverified Adverse Reaction, Mild, N/V, 11/17/16) Past Vdlcqkh-Juiyui-Bqkfzf Hx Patient Social History Alcohol Use: Denies Use Recreational Drug Use: No Smoking Status: Current Everyday Smoker Type Used: Cigarettes Physical Abuse Screen: No Sexual Abuse: No Recent Foreign Travel: No Contact w/other who traveled: No Recent Hopitalizations: No Recent Infectious Disease Expo: No Immunizations Up To Date Date of Influenza Vaccine: Nov 13, 2016 Seasonal Allergies Seasonal Allergies: Yes Surgeries HX Surgeries: Yes (cyst removal) Surgeries: Appendectomy, Hysterectomy Respiratory Hx Respiratory Disorders: No Cardiovascular Hx Cardiovascular Disorders: Yes Cardiac Disorders: Hypertension Neurological Hx Neurological Disorders: Yes Neurological Disorders: Headaches /Migraines Reproductive System Hx Reproductive Disorders: Yes (IRREGULAR PERIODS, DUB, UTERINE PROLAPSE) Genitourinary Hx Genitourinary Disorders: No Gastrointestinal Hx Gastrointestinal Disorders: No Musculoskeletal Hx Musculoskeletal Disorders: No Musculoskeletal Disorders: Degenerate Disk Disease, Chronic Back Pain Endocrine Hx Endocrine Disorders: Yes Endocrine Disorders: Hypothyroidsim HEENT HX ENT Disorders: No Cancer Hx Cancer: Yes Cancer: Skin Psychosocial Hx Psychiatric Problems: Yes Behavioral Health Disorders: Anxiety Integumentary HX Skin/Integumentary Disorder: No Blood Transfusions Hx Blood Disorders: Yes (anemia) Adverse Reaction to a Blood Tr: No Reviewed Nursing Assessment Reviewed/Agree w Nursing PMH: Yes Family Medical History Significant Family History: No Pertinent Family Hx Review of Systems Constitutional: see HPI Respiratory: dyspnea on exertion short of breath Cardiovascular: chest painNo edema, No Hx of Intervention, No palpitations, No syncope, No vascular heart diseas Physical Exam Physical Exam Vital Signs Vital Sign - Last 12Hours Capillary Refill : Less Than 3 Seconds General Appearance: No Apparent Distress Obese Respiratory: Chest Non Tender Normal Breath Sounds No Accessory Muscle Use No Respiratory Distress Rales (In bases only elsewhere her chest is clear) Cardiovascular: Regular Rate, Rhythm No Edema No Gallop No JVD No Murmur Normal Peripheral Pulses Gastrointestinal: Normal Bowel Sounds No Organomegaly No Pulsatile Mass Non Tender Soft Extremity: Normal Capillary Refill Normal Inspection Normal Range of Motion Non Tender No Calf Tenderness No Pedal Edema Skin: Normal Color Warm/Dry Results Results/Procedures Lab Laboratory Tests 11/16/16 19:23 11/17/16 05:00 Assessment/Plan Admission Diagnosis 1. Acute non-ST segment elevation [place] culprit artery being acute occlusion of the circumflex artery status post successful drug-eluting stent placement. 2. Tobaccoism discussed the importance of tobacco cessation in front of her and the importance that he quit as well. Help in the form of counseling and medications offered. Clinical Quality Measures AMI/AHF: ASA po Prior to arrival: No DVT/VTE Risk/Contraindication: Risk Factor Score Per Nursin RFS Level Per Nursing on Admit: 2=Moderate RODRÍGUEZ FERREIRA MD Nov 17, 2016 19:57
[2016-11-17] MEDS ORDERED: ATORVASTATIN 80 MG (LIPITOR) TABLET PO SCH (21:00)
[2016-11-18] VITALS (9 sets, daily range): BP systolic 120–144; BP diastolic 78–94
[2016-11-18 04:51] LABS: MEAN PLATELET VOLUME 10.9 FL (7.4-10.4); RED BLOOD COUNT 3.52 10^6/uL (4.35-5.85); RED CELL DISTRIBUTION WIDTH 14.9 % (10.0-14.5); WHITE BLOOD COUNT 10.7 10^3/uL (4.3-11.0)
[2016-11-18 05:11] LABS: ALANINE AMINOTRANSFERASE 25 U/L (0-55); ALBUMIN 3.3 G/DL (3.2-4.5); ANION GAP 8 MMOL/L (5-14); ASPARTATE AMINO TRANSFERASE 75 U/L (5-34); BILIRUBIN,TOTAL 0.2 MG/DL (0.1-1.0); BLOOD UREA NITROGEN 8 MG/DL (7-18); BUN/CREATININE RATIO 12; CALCIUM 8.2 MG/DL (8.5-10.1); CARBON DIOXIDE 18 MMOL/L (21-32); CHLORIDE 110 MMOL/L (98-107); CREATININE SERUM 0.66 MG/DL (0.60-1.30); GFR ESTIMATED > 60; GLUCOSE 163 MG/DL (70-105); MAGNESIUM 2.1 MG/DL (1.8-2.4); PHOSPHORUS 1.7 MG/DL (2.3-4.7); POTASSIUM 3.9 MMOL/L (3.6-5.0); SODIUM 136 MMOL/L (135-145); TOTAL PROTEIN 5.8 G/DL (6.4-8.2)
[2016-11-18 05:28] LABS: TROPONIN I 16.32 NG/ML (<0.30)
--- NOTE | 2016-11-18 06:17 | Pulmonary Progress Note ---
Subjective Subjective/Events-last exam Pt feels improved s/p cath with stent placement. SOB is improved. Exam Exam Vital Signs Date Time Temp Pulse Resp B/P (MAP) Pulse Ox O2 Delivery O2 Flow Rate FiO2 11/18/16 04:00 65 13 142/90 95 Room Air 11/18/16 03:00 66 14 127/81 96 Room Air 11/18/16 02:00 67 10 144/89 95 Room Air 11/18/16 01:00 61 11 142/94 96 Room Air 11/18/16 01:00 62 11/18/16 00:00 59 14 135/90 96 Room Air 11/17/16 23:00 80 20 143/93 96 Room Air 11/17/16 22:00 59 16 127/87 97 Room Air 11/17/16 21:00 61 16 123/77 96 Room Air 11/17/16 21:00 95 Room Air 11/17/16 20:00 96.6 61 16 135/83 95 Room Air 11/17/16 19:00 61 11/17/16 19:00 59 16 128/82 96 Room Air 11/17/16 15:56 98.9 54 14 105/89 97 Room Air 11/17/16 14:00 56 17 127/92 96 Room Air 11/17/16 13:00 50 13 116/88 97 Room Air 11/17/16 13:00 56 11/17/16 11:42 96.9 56 11 119/75 94 Room Air 11/17/16 11:00 47 10 125/89 95 Room Air 11/17/16 10:00 49 12 103/84 95 Room Air 11/17/16 09:10 93 Room Air 11/17/16 08:40 97.3 48 15 92/73 94 Room Air 11/17/16 07:00 72 I & O 11/18/16 07:00 Intake Total 690 ml Output Total 500 ml Balance 190 ml General Appearance: No Apparent Distress, Obese HEENT: PERRL/EOMI, Pharynx Normal Neck: Non Tender, Supple Respiratory: Chest Non Tender, Normal Breath Sounds, No Accessory Muscle Use, No Respiratory Distress, Rales (In bases only elsewhere her chest is clear) Cardiovascular: Regular Rate, Rhythm, No Edema, No Gallop, No JVD, No Murmur, Normal Peripheral Pulses Capillary Refill: Less Than 3 Seconds Extremity: Normal Capillary Refill, Normal Inspection, Normal Range of Motion, Non Tender, No Calf Tenderness, No Pedal Edema Neurologic/Psychiatric: Alert, Oriented x3 Skin: Normal Color, Warm/Dry Lymphatic: No Adenopathy Results Lab Laboratory Tests 11/16/16 19:23 11/17/16 05:00 11/18/16 03:55 Assessment/Plan Assessment/Plan NSTEMI- S/P cath with stent placement - 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
[2016-11-18] MEDS ORDERED: methylPREDNISolone 40 MG/ML (Solu-MEDROL) VIAL ONE ×2 (06:30→06:39)
[2016-11-18] MEDS: CATHETER FLUSH 10 ML SYR IV SCH (06:37)
[2016-11-18] MEDS: OMEGA 3 (FISH OIL) 1000 MG CAP PO SCH (06:38)
[2016-11-18] MEDS: NS IV 1000 ML 1,000 ML IV SCH (08:08)
[2016-11-18] MEDS: TICAGRELOR 90 MG TABLET (BRILINTA) PO SCH (08:09)
[2016-11-18] MEDS: LOSARTAN 50 MG (COZAAR) TAB PO SCH (08:09)
[2016-11-18] MEDS: ASPIRIN E.C. 81 MG (ECOTRIN) TAB PO SCH (08:10)
--- NOTE | 2016-11-18 08:10 | Diagnostic Imaging Report ---
EXAMINATION: Portable upright radiograph of the chest. INDICATION: Chest pain. FINDINGS: There is minimal opacity in the left lung base favored to be atelectasis. The right lung is clear. The heart size is normal. No effusion or pneumothorax. The mediastinum and yulia appear unremarkable. IMPRESSION: Minimal left basilar opacity favored to be atelectasis. Dictated by: Dictated on workstation # [id number]
--- NOTE | 2016-11-18 08:45 | Progress Note-Hospitalist ---
Subjective HPI/CC On Admission Mrs. Jamison is a 46-year-old white female who been having intermittent chest pain for roughly the past week. It had been lasting several minutes in duration most notably with stress physical or emotional. On the day of her adssion she had more intense symptoms that did not marquis. They were associated with rtness of breath and diaphore. Finally at the insistence of her she came to emergency room where was noted that her troponin level was elevated and nonspecific ST changes were noted on her EKG. She was taken to the [facility] where she circumflex. She underwent successfull stenting per Dr. Zamora. Currently she reports resolution of her chest pain. Date Seen 11/18/16 Subjective/Events-last exam Slept welll no chest pain or SOB reported. Objective Exam Vital Signs Vital Sign - Last 12Hours Capillary Refill : Less Than 3 Seconds General Appearance: No Apparent Distress Respiratory: Chest Non Tender, Lungs Clear, Normal Breath Sounds, No Accessory Muscle Use, No Respiratory Distress Cardiovascular: Regular Rate, Rhythm, No Edema, No Gallop, No JVD, No Murmur, Normal Peripheral Pulses Extremity: Normal Inspection, Normal Range of Motion, Non Tender, No Pedal Edema Results/Procedures Lab Laboratory Tests 11/18/16 03:55 Assessment/Plan Assessment and Plan Assess & Plan/Chief Complaint 1. NSTEMI S/P Circumflex stent doing well. 2. Pulmonary edema due to 1. resolved. RODRÍGUEZ FERREIRA MD Nov 18, 2016 08:45
[2016-11-18] MEDS ORDERED: OMG1KC PO (08:50)
[2016-11-18] MEDS ORDERED: ATOR80TA76 PO (08:50)
[2016-11-18] MEDS ORDERED: TICA90TA PO (08:50)
[2016-11-18] MEDS ORDERED: ASPI-983 PO (08:50)
--- NOTE | 2016-11-18 08:51 | Discharge Inst-Post CATH ---
Discharge Inst-CATH Post Cardiac Cath D/C Inst Follow Up/Plan Appointment with Dr. Trejo's office in 2-4 weeks CARDIAC CATH DISCHARGE INSTRUCTIONS *Hold Metformin for 48 hours post heart cath. ACTIVITY * Go Home directly and rest. * Limit activity of the leg (or wrist if it was used) for 7 days including aerobics, swimming, jogging, bicycling, etc. * Restrict stair-climbing for 7 days if possible, if not, climb up with your non -cath leg, then bring together on the same step. * Avoid lifting, pushing, pulling or excessive movement of the affected extremity for 7 days. * Customary sexual activity may be resumed after 2 days-use caution not to use a position that strains or causes pain to the affected extremity. * No driving for 24 hours. * NO SMOKING. * Avoid straining for bowel movements for 7 days. * Gentle walking on level ground is allowed. * Returning to work will depend on the type of procedure and the results. Your doctor will discuss this with you. CALL YOUR DOCTOR FOR ANY OF THE FOLLOWING: *If bleeding from the puncture site occurs- Apply gentle pressure to site with clean cloth and call your doctor or EMS. * If a knot or lump forms under the skin, increases in size, or causes pain. * If bruising appears to be worsening or moving further down your leg instead of disappearing. * Temperature above 101 F. CARE OF YOUR GROIN INCISION; * Bruising or purple discoloration of the skin near the puncture site is common. * You may shower only, no bathtub bathing for 5 days. Be careful to avoid slipping as your leg may feel stiff. * If a closure device was used on your femoral artery, please see the attached guide regarding care of the device and your leg. * REMOVE the dressing from your groin the next day after your procedure in the shower. CARE OF YOUR WRIST INCISION; * Bruising or purple discoloration of the skin near the puncture site is common. * You may shower. * DO NOT submerge wrist. * Remove dressing in 24 hours. JAILENE TREJO MD Nov 18, 2016 08:50
--- NOTE | 2016-11-18 08:54 | Cardiology Progress Note ---
Subjective Subjective/Events-last exam patient is sitting up in a chair, feeling better, denied any chest pain or shortness of breath. Reporting significant improvement. Groin is healing well. Review of Systems General: No Chills, No Night Sweats, No Fatigue, No Malaise, No Appetite, No Other HEENT: No Head Aches, No Visual Changes, No Eye Pain, No Ear Pain, No Dysphasia , No Sinus Congestion, No Post Nasal Drip, No Sore Throat, No Other Pulmonary: No Dyspnea, No Cough, No Pleuritic Chest Pain, No Other Cardiovascular: No: Chest Pain, Edema, Lt Headedness, Orthopnea, Other, Palpitations, Paroxysmal Noc. Dyspnea Objective-Cardiology Exam Last Set of Vital Signs Vital Signs 11/18/16 08:00 Temp 97.6 Pulse 71 Resp 15 B/P (MAP) 120/78 Pulse Ox 96 O2 Delivery Room Air Capillary Refill : Less Than 3 Seconds I&O Bad tableGeneral: Alert, Oriented X3, Cooperative HEENT: Atraumatic, PERRLA Neck: Supple, No JVD, No Thyromegaly Lungs: Clear to Auscultation, Normal Air Movement Heart: Regular Rate, Normal S1, Normal S2, No Murmurs Abdomen: Normal Bowel Sounds, Soft, No Tenderness, No Hepatosplenomegaly, No Masses Extremities: No Clubbing, No Cyanosis, No Edema, Normal Pulses, No Tenderness/ Swelling Skin: No Rashes, No Breakdown, No Significant Lesion Neuro: Normal Gait, Normal Speech, Strength at 5/5 X4 Ext, Normal Tone, Sensation Intact Psych/Mental Status: Mental Status NL, Mood NL Results Lab Laboratory Tests 11/18/16 03:55 A/P-Cardiology Admission Diagnosis Non-ST elevation elevation myocardial infarction Coronary artery disease Hypertension Hyperlipidemia Assessment/Plan Non-ST elevation myocardial infarction, status post stent to the left circumflex artery which was totally occluded with excellent results using Xience Alpine 2.5 x 18 mm extended proximally to 3.75 and distally to 2.68 with excellent results, educated on taking aspirin and Brilinta and not stopping the medication. Chest pain, shortness of breath, reporting improvement today. Hypertension, continue on losartan and monitor Hyperlipidemia, has been on simvastatin as an outpatient. Mildly elevated lipids. Planning to switch to Lipitor. Tobaccoism, educated on smoking cessation Patient is taking large amount of Neurontin, according to her medication list she is on 800 mg 4 times a day which I think is a very large dose. Patient has flat affect yesterday, was lethargic the whole day which I'm suspecting secondary to these medication. Family history of atherosclerosis Clinical Quality Measures AMI/AHF: ASA po Prior to arrival: No DVT/VTE Risk/Contraindication: Risk Factor Score Per Nursin RFS Level Per Nursing on Admit: 2=Moderate JAILENE MILLER MD Nov 18, 2016 08:54
[2016-11-18] MEDS ORDERED: AZITHROMYCIN INJECTION 250 MG in NS (IVPB) 250 ML IV SCH (09:00)
[2016-11-18] MEDS: cefTRIAXone INJECTION 1,000 MG in NS (IVPB) 50 ML IV SCH (10:10)
[2016-11-18] MEDS ORDERED: methylPREDNISolone 40 MG/ML (Solu-MEDROL) VIAL IV SCH (12:00)
[2016-11-18 16:03] LABS: ANTI NEUTROPHIL CYTOPLASM <1:20 (<1:20)
[2016-11-18 16:04] LABS: ANCA PATTERN Not Indicated
[2016-11-19 07:30] LABS: ANGIOTENSIN CONVERTING ENZYME 34 U/L (9-67)
== END 2016-11-18 13:10 | disposition home or self-care (01) | DRG 247 ==
LOC: DELPENDDIS → EDUNIT# 19:12 → ER 19:15 → UNDOADMOB 22:46 → 4TH 22:46 → INTOOBSV 11-17 08:22 → OBSVTOIN 11-17 08:22 → 4TH 11-17 08:35 → ICU 11-17 08:35
PROVIDERS: ADMIT Internal Medicine; ATTEND Internal Medicine
PROC: 027034Z Dilation of Coronary Artery, One Artery with Drug-eluting Intraluminal Device, Percutaneous Approach (ICD-10-PCS; principal; 2016-11-17)
PROC: 4A023N7 Measurement of Cardiac Sampling and Pressure, Left Heart, Percutaneous Approach (ICD-10-PCS; 2016-11-17)
PROC: B2111ZZ Fluoroscopy of Multiple Coronary Arteries using Low Osmolar Contrast (ICD-10-PCS; 2016-11-17)
PROC: B2151ZZ Fluoroscopy of Left Heart using Low Osmolar Contrast (ICD-10-PCS; 2016-11-17)
PROC: B3101ZZ Fluoroscopy of Thoracic Aorta using Low Osmolar Contrast (ICD-10-PCS; 2016-11-17)
DX: I21.4 Non-ST elevation (NSTEMI) myocardial infarction (principal); J81.1 Chronic pulmonary edema; I25.10 Atherosclerotic heart disease of native coronary artery without angina pectoris; F17.210 Nicotine dependence, cigarettes, uncomplicated; I10 Essential (primary) hypertension; E03.9 Hypothyroidism, unspecified; E78.5 Hyperlipidemia, unspecified; Z82.49 Family history of ischemic heart disease and other diseases of the circulatory system
CPT/HCPCS: 36221; 36415; 71010; 71275; 80053; 80061; 80306; 82164; 83735; 83874; 83880; 84100; 84443; 84484; 85025; 85027; 85347; 85379; 85610; 85730; 86021; 86038; 86141; 86430; 93005; 93458; 96374; 96375; 96376; G0378

== ENCOUNTER → 2016-12-08 | Outpatient (CLI) | payer MEDICAID ==
[~2016-12-08] MED LIST changes: +ASPI-983 PO; +ATOR80TA76 PO; +BUTA1CAP3 PO; +CHLO500T4 PO; +DICL75TA2 PO; +GABA800T2 PO; +LEVO150T6 PO; +NABU500T PO; +OMG1KC PO; +PANT40TA3 PO; +PARO40TA3 PO; +PROM25TA14 PO; +TICA90TA PO
[2016-12-14 15:29] LABS: CYP2C19 GENO *2/Neg; CYP2C19 SPEC Whole Blood
== END ==
LOC: LAB 14:39
PROVIDERS: ATTEND Internal Medicine Cardiovascular Disease
DX: I21.4 Non-ST elevation (NSTEMI) myocardial infarction (principal); I24.9 Acute ischemic heart disease, unspecified
CPT/HCPCS: 36415; 81225

== ENCOUNTER → 2017-01-01 | Outpatient (CLI) | payer MEDICAID ==
--- NOTE | 2017-01-01 14:37 | Diagnostic Imaging Report ---
INDICATION: Pelvic pain. Previous history of total hysterectomy. FINDINGS: The uterus is absent. There are no adnexal masses. There is no free fluid. IMPRESSION: Negative pelvic sonogram post hysterectomy. Dictated by: Dictated on workstation # [id number]
== END ==
LOC: RAD 12:46
PROVIDERS: ATTEND Obstetrics & Gynecology
DX: R10.32 Left lower quadrant pain (principal)
CPT/HCPCS: 76830; 76856

== ENCOUNTER 2017-05-18 11:51 | Outpatient (CLI) | payer MEDICAID ==
[~2017-05-18] VITALS: Ht 170.2 cm; Wt 69.6 kg
[2017-05-18] MEDS ORDERED: PREG50CA2 PO (12:10)
[2017-05-18] MEDS ORDERED: OMEG100032 PO (12:10)
[2017-05-18] MEDS ORDERED: ATOR80TA76 PO (12:10)
[2017-05-18] MEDS ORDERED: GABA-490 PO (12:10)
[2017-05-18] MEDS ORDERED: TICA90TA PO (12:10)
[2017-05-18] MEDS ORDERED: NITR0.4T39 SL (12:10)
[2017-05-18] MEDS ORDERED: ORPH100T PO (12:10)
[2017-05-18 12:14] VITALS: BP 145/105
== END 2017-05-18 13:35 | disposition home or self-care (01) ==
LOC: PREOP 11:51
PROVIDERS: ATTEND Obstetrics & Gynecology
DX: Z01.818 Encounter for other preprocedural examination (principal); D06.9 Carcinoma in situ of cervix, unspecified
CPT/HCPCS: 87081

== ENCOUNTER → 2017-05-19 | Outpatient (CLI) | payer MEDICAID ==
[~2017-05-19] VITALS: Ht 170.2 cm; Wt 70.8 kg
[~2017-05-19] MED LIST changes: +CATHETER FLUSH 10 ML SYR IV PRN; +GABA-490 PO; +IBUP-1773 PO; +NITR0.4T39 SL; +OMEG100032 PO; +ORPH100T PO; +PREG50CA2 PO; +REGADENOSON 0.4 MG/5 ML SYR (LEXISCAN) IV ONE
[2017-05-19 13:39] VITALS: BP 118/81
--- NOTE | 2017-05-20 09:54 | STRESS TEST ---
DATE OF SERVICE: 05/19/2017 LEXISCAN MYOVIEW STRESS TEST REPORT REFERRING PHYSICIAN: [facility], Dr. Ellyn Sanders TEST DATE: May 19, 2017 Baseline heart rate is 71. Baseline blood pressure is 119/77. Baseline EKG is sinus rhythm with no ischemic changes. In summary, the patient was scheduled initially for exercise stress test. Then, it was converted to Lexiscan Myoview stress test. The patient received 0.4 mg of Lexiscan followed by 30.5 mCi of technetium-99 Myoview. Throughout the test, there were no EKG changes. The resting and stress images were reviewed and compared in the short axis, horizontal long axis, and vertical long axis views. Review of the images showed no significant ischemia or infarction. SSS is zero and TID value is 0.92. On the gated images, the left ventricle appeared to be normal size with normal contractility. Calculated ejection fraction is 66%. CONCLUSION: 1. The patient tolerated the Lexiscan well. 2. No ischemia or infarction on SPECT images. 3. Normal left ventricular size with normal contractility. Calculated ejection fraction is 66%. Job ID: [id number] DocumentID: [id number] Dictated Date: 05/19/2017 15:31:53 Furniture Assembler Date: 05/19/2017 20:01:05 Dictated By: JAILENE MILLER MD
== END ==
LOC: CARD 12:17
PROVIDERS: ATTEND Physician Assistant
DX: I10 Essential (primary) hypertension; E78.2 Mixed hyperlipidemia; R07.89 Other chest pain; I25.10 Atherosclerotic heart disease of native coronary artery without angina pectoris
CPT/HCPCS: 78452; 93017; 93306

== ENCOUNTER 2017-10-21 13:34 | Outpatient (CLI) | payer MEDICAID ==
[~2017-10-21] VITALS: Ht 170.2 cm; Wt 72.6 kg
[~2017-10-21 13:34] MED LIST changes: -CATHETER FLUSH 10 ML SYR IV PRN; +HYDR-34 PO; -HYDR-3816 PO; -REGADENOSON 0.4 MG/5 ML SYR (LEXISCAN) IV ONE
[2017-10-21] MEDS ORDERED: methylPREDNISolone 80 MG/ML (DEPO MEDROL) VIAL ONE (13:56)
[2017-10-21 14:04] VITALS: BP 133/105
[2017-10-21 14:30] VITALS: BP 145/106
== END 2017-10-21 14:32 ==
LOC: CARD 13:34
PROVIDERS: ATTEND Pain Medicine Interventional Pain Medicine
DX: M54.16 Radiculopathy, lumbar region (principal)
CPT/HCPCS: 62321

== ENCOUNTER 2018-01-11 13:44 | Outpatient (RCR) | payer MEDICAID ==
[2018-01-12] MEDS ORDERED: METH-313 PO (09:14)
[2018-01-12] MEDS ORDERED: LOSA100T28 PO (09:23)
[2018-01-12] MEDS ORDERED: LEVO125T6 PO (09:23)
[2018-01-12] MEDS ORDERED: GABA800T2 PO (09:23)
[2018-01-12] MEDS ORDERED: ASPI-586 PO (09:25)
[2018-01-19] MEDS ORDERED: HYDR4TAB PO (11:25)
== END 2018-02-28 10:02 | disposition home or self-care (01) ==
PROVIDERS: ATTEND Nurse Practitioner
DX: M54.16 Radiculopathy, lumbar region (principal); G89.4 Chronic pain syndrome

== ENCOUNTER 2018-01-12 05:41 | Outpatient (CLI) | payer MEDICAID ==
[~2018-01-12] VITALS: Ht 170.2 cm; Wt 72.6 kg
[2018-01-12] MEDS ORDERED: METH-313 PO (09:14)
[2018-01-12] MEDS ORDERED: LEVO125T6 PO (09:23)
[2018-01-12] MEDS ORDERED: LOSA100T28 PO (09:23)
[2018-01-12] MEDS ORDERED: GABA800T2 PO (09:23)
[2018-01-12] MEDS ORDERED: ASPI-586 PO (09:25)
== END 2018-01-12 09:32 ==
LOC: PREOP 05:41
PROVIDERS: ATTEND Orthopaedic Surgery
DX: Z01.818 Encounter for other preprocedural examination (principal)

== ENCOUNTER → 2018-01-13 | Outpatient (CLI) | payer MEDICAID ==
[~2018-01-13] VITALS: Ht 170.2 cm; Wt 72.6 kg
[~2018-01-13] MED LIST changes: +ASPI-586 PO; +HYDR4TAB PO; +LEVO125T6 PO; +LOSA100T28 PO; +METH-313 PO; +methylPREDNISolone 80 MG/ML (DEPO MEDROL) VIAL ONE
[2018-01-13 14:23] VITALS: BP 137/93
[2018-01-13 14:41] VITALS: BP 126/89
--- NOTE | 2018-01-13 18:54 | OPERATIVE REPORT ---
DATE OF SERVICE: 01/13/2018 DIAGNOSIS: Lumbar radiculopathy. PROCEDURE: Fluoroscopic guided interlaminar epidural steroid injection. PROCEDURE IN DETAIL: After obtaining informed consent from the patient, the patient's chart was reviewed. The patient was then brought to the procedure room and placed in the prone position. A timeout was performed. The back was prepped with antiseptic solution and under fluoro guidance, the patient's lumbar spine was identified at the level of L4-L5. The L4-L5 vertebra was identified with fluoro guidance and approximately 2 mL of 1.5% lidocaine solution was used to anesthetize the skin directly down to the pedicle of the L4-L5 and under fluoroscopic guidance, the tract was anesthetized up to the interlaminar space and the ligamentum flavum. This needle was withdrawn. Then, a 20-gauge 3.5 inch Tuohy needle was then directed following the same tract that was anesthetized with the spinal needle. Using loss of resistance, the epidural space was identified and then the syringe was switched for contrast solution, which was injected, approximately 1 mL. After secondary confirmation of epidural access, another syringe was placed and 80 mg of Depo-Medrol was injected. The Tuohy needle was then flushed out with approximately 2 mL of the normal saline used from the loss of resistance syringe. Band-Aids were applied to all the procedure sites. The patient tolerated the procedure well and was taken to the recovery room in stable condition. COMPLICATIONS: None. Job ID: [id number] DocumentID: [id number] Dictated Date: 01/13/2018 14:35:14 Electrical Lineman Date: 01/13/2018 18:53:34 Dictated By: AKHIL PALACIOS DO
== END ==
LOC: CARD 13:11
PROVIDERS: ATTEND Pain Medicine Interventional Pain Medicine
DX: M54.16 Radiculopathy, lumbar region (principal); Z88.2 Allergy status to sulfonamides; Z88.5 Allergy status to narcotic agent
CPT/HCPCS: 62323

== ENCOUNTER 2018-01-19 08:04 | Day surgery (SDC) | payer MEDICAID ==
--- NOTE | 2018-01-10 17:42 | HISTORY AND PHYSICAL ---
DATE OF SERVICE: ADMISSION HISTORY AND PHYSICAL This will be for outpatient surgery on 01/19/2018 for left shoulder arthroscopy. HISTORY OF PRESENT ILLNESS: The patient is a 47-year-old left hand dominant female with complaints of left shoulder pain. She reports several months of progressive worsening left shoulder pain. She has undergone treatment with injections with minimal relief of her symptoms. 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 This had to do lifting for years, but she denies any specific injury. She denies neck pain and denies paresthesias. She has tried home exercise program without relief. She reports functional impairment and failure to improve with conservative measures. Because of this, the patient has elected to proceed with surgical intervention. REVIEW OF SYSTEMS: No chest pain, no shortness of breath, no dysuria. PAST MEDICAL HISTORY: Anxiety disorder, depression, hyperlipidemia, hypertension, hypothyroidism, degenerative disk disease, melanoma, coronary artery disease, migraines, fibromyalgia, scoliosis. PAST SURGICAL HISTORY: Cardiac catheterization, appendectomy, hysterectomy, tubal ligation, melanoma excision. FAMILY HISTORY: Significant for thyroid disorder, diabetes. PRIMARY CARE PROVIDER: . MEDICATIONS: Atorvastatin, promethazine, pantoprazole, levothyroxine, orphenadrine, loratadine, aspirin, paroxetine, Neurontin, Mobic, losartan. ALLERGIES: TO OXYCODONE, SULFA, ANTI-INFLAMMATORIES AND TRAMADOL. SOCIAL HISTORY: The patient smokes. Denies alcohol use. PHYSICAL EXAMINATION: GENERAL: The patient is well-developed, well-nourished, no acute distress. HEENT: Normocephalic, atraumatic. Pupils were equal, round, reactive to light. Oropharynx is clear. NECK: Supple, with no lymphadenopathy. LUNGS: Clear to auscultation bilaterally. HEART: Regular rate and rhythm. ABDOMEN: Soft, nontender, nondistended. EXTREMITIES: The patient has negative Spurling's maneuver. No skin lesions noted. No gross atrophy is noted. Sensation is intact throughout her left upper extremity. She has active forward elevation of 160 degrees, passive of 170, external rotation symmetric to 70 degrees, internal rotation is to L1. She has markedly positive Anna's maneuver with positive Neer's and Hawkin sign. No gross weakness to abduction or external rotation. ASSESSMENT: Left shoulder SLAP tear with partial thickness rotator cuff tear. PLAN: Left shoulder arthroscopy with biceps tenodesis, possible rotator cuff repair. The risks, benefits, options, ramifications in recovery have been discussed at length with the patient. She understands and wishes to proceed. Job ID: [id number] DocumentID: [id number] Dictated Date: 01/10/2018 16:38:32 Surveying Crew Rodman Date: 01/10/2018 17:33:07 Dictated By: AKHIL HUSSEIN MD
[~2018-01-19] VITALS: Ht 170.2 cm; Wt 72.6 kg
[~2018-01-19 08:04] MED LIST changes: -HYDR4TAB PO; -methylPREDNISolone 80 MG/ML (DEPO MEDROL) VIAL ONE
--- OUTSIDE RECORDS SUMMARY | 2018-01-19 08:08 | XMS REPORT ---
Author Author TROY MORLEY Organization [facility] [place] Address [address] [place] [address] Care Team Providers Care Pediatric Nephrologist Name Role Phone TROY MORLEY Unavailable PROBLEMS Type Condition ICD9-CM Code [id number] Code Onset Dates Condition Status SNOMED Code Problem Gastroesophageal reflux disease, esophagitis presence not specified K21.9 Active 826731283 Problem Acute allergic rhinitis due to other allergen J30.89 Active 49341882 Problem Neuropathy G62.9 Active 978036904 Problem Essential hypertension I10 Active 27459345 Problem Coronary artery disease involving [place] coronary artery of [place] heart without angina pectoris I25.10 Active 3862719704769 Problem Acquired hypothyroidism E03.9 Active 917522538 Problem Chronic pain syndrome G89.4 Active 919566923 ALLERGIES No Information SOCIAL HISTORY Never Assessed PLAN OF CARE VITAL SIGNS MEDICATIONS Medication Instructions Dosage Frequency Start Date End Date Duration Status Fiorinal 50-325-40 MG Orally every 4 hrs as needed (Maximum of 3 daily) 1 capsule as needed Nov, 30 days Active RESULTS No Results PROCEDURES No Known procedures IMMUNIZATIONS No Known Immunizations MEDICAL (GENERAL) HISTORY Type Description Date Medical History Hyperlipidemia Medical History Hypertension Medical History Anxiety Medical History Depression Medical History Hypothyroid Medical History Melanoma Medical History degenerative disc disease Surgical History Cardiac Cath 10/2016 Surgical History Partial Hysterectomy Surgical History Ovarian cyst removal Surgical History Appendectomy Surgical History Tubal Ligation Surgical History Melanoma Removal from right shoulder Surgical History Colposcopy - abnormal --Dr. Ramirez 04/2017 Hospitalization History Childbirth
--- OUTSIDE RECORDS SUMMARY | 2018-01-19 08:08 | XMS REPORT ---
Author Author TROY MORLEY Organization [facility] Address [address] [place] [address] Care Team Providers Care Equine Pharmacology Technician Name Role Phone TROY MORLEY Unavailable PROBLEMS Type Condition ICD9-CM Code IVY17-CL Code Onset Dates Condition Status SNOMED Code Problem Gastroesophageal reflux disease, esophagitis presence not specified K21.9 Active 173235263 Problem Acute allergic rhinitis due to other allergen J30.89 Active 71073125 Problem Neuropathy G62.9 Active 769950121 Problem Essential hypertension I10 Active 23348384 Problem Coronary artery disease involving [place] coronary artery of [place] heart without angina pectoris I25.10 Active 0487446059273 Problem Acquired hypothyroidism E03.9 Active 468525140 Problem Chronic pain syndrome G89.4 Active 462806290 ALLERGIES No Information SOCIAL HISTORY Never Assessed PLAN OF CARE VITAL SIGNS MEDICATIONS Unknown Medications RESULTS No Results PROCEDURES No Known procedures [...]
--- OUTSIDE RECORDS SUMMARY | 2018-01-19 08:08 | XMS REPORT ---
Author Author TROY MORLEY Organization [facility] Address [address] [place] [address] Care Team Providers Care Machine Operations Supervisor Name Role Phone TROY MORLEY Unavailable PROBLEMS Type Condition ICD9-CM Code LGW21-AT Code Onset Dates Condition Status SNOMED Code Problem Gastroesophageal reflux disease, esophagitis presence not specified K21.9 Active 995703878 Problem Acute allergic rhinitis due to other allergen J30.89 Active 92756432 Problem Neuropathy G62.9 Active 789537640 Problem Essential hypertension I10 Active 69439018 Problem Coronary artery disease involving [place] coronary artery of [place] heart without angina pectoris I25.10 Active 0176259068314 Problem Acquired hypothyroidism E03.9 Active 222662000 Problem Chronic pain syndrome G89.4 Active 334428954 ALLERGIES No Information SOCIAL HISTORY Never Assessed [...]
--- OUTSIDE RECORDS SUMMARY | 2018-01-19 08:08 | XMS REPORT ---
Author Author TROY MORLEY Organization [facility] Address [address] [place] [address] Care Team Providers Care Front End Developer Javascript Html Css Name Role Phone TROY MORLEY Unavailable PROBLEMS Type Condition ICD9-CM Code [id number] Code Onset Dates Condition Status SNOMED Code Problem Gastroesophageal reflux disease, esophagitis presence not specified K21.9 Active 756471959 Problem Acute allergic rhinitis due to other allergen J30.89 Active 99091980 Problem Neuropathy G62.9 Active 221598889 Problem Essential hypertension I10 Active 25695464 Problem Coronary artery disease involving [place] coronary artery of [place] heart without angina pectoris I25.10 Active 1892828661171 Problem Acquired hypothyroidism E03.9 Active 306562517 Problem Chronic pain syndrome G89.4 Active 399692417 ALLERGIES No Information SOCIAL HISTORY Never Assessed PLAN OF CARE VITAL SIGNS MEDICATIONS Unknown Medications RESULTS Name Result Date Reference Range TSH W/ FREE T4 2017-02-03 TSH 0.667 0.450-4.500 T4,Free(Direct) 1.45 0.82-1.77 A1C 2017-02-03 Hemoglobin A1c 5.9 4.8-5.6 LIPID PANEL 2017-02-03 Cholesterol, Total 155 100-199 Triglycerides 157 0-149 HDL Cholesterol 57 >39 VLDL Cholesterol Momo 31 5-40 LDL Cholesterol Calc 67 0-99 PROCEDURES Procedure Date Ordered Result Body Site LAB NOT BILLED BY [facility] February 03, 2017 GLYCATED HEMOGLOBIN TEST February 03, 2017 VENIPUNCT, ROUTINE* February 03, 2017 IMMUNIZATIONS No Known Immunizations MEDICAL (GENERAL) HISTORY [...]
--- OUTSIDE RECORDS SUMMARY | 2018-01-19 08:08 | XMS REPORT ---
Author Author TROY MORLEY [facility] Address [address] [place] [address] Care Team Providers Care Director Integrated Name Role Phone TROY MORLEY Unavailable PROBLEMS Type Condition ICD9-CM Code ZNB30-AV Code Onset Dates Condition Status SNOMED Code Problem Gastroesophageal reflux disease, esophagitis presence not specified K21.9 Active 197095274 Problem Acute allergic rhinitis due to other allergen J30.89 Active 41755687 Problem Neuropathy G62.9 Active 026395167 Problem Essential hypertension I10 Active 29672572 Problem Coronary artery disease involving [place] coronary artery of [place] heart without angina pectoris I25.10 Active 8580614675681 Problem Acquired hypothyroidism E03.9 Active 325916071 Problem Chronic pain syndrome G89.4 Active 999664119 ALLERGIES Substance Reaction Event Type Date Status Tylenol Unknown Drug Allergy Jan, Active Tramadol HCl dizziness Drug Allergy Jan, Active Sulfamethoxazole-Trimethoprim dizziness Drug Allergy Jan, Active Oxycodone HCl dizziness Drug Allergy Jan, Active NSAIDS Unknown Non Drug Allergy Jan, Active SOCIAL HISTORY Never Assessed PLAN OF CARE Activity Details Follow Up 2 Months with Tommy chau chronic pain Reason: VITAL SIGNS Height 67 in 2017-02-02 Weight 153.8 lbs 2017-02-02 Temperature 98.1 degrees Fahrenheit 2017-02-02 Heart Rate 64 bpm 2017-02-02 Respiratory Rate 18 2017-02-02 BMI 24.09 kg/m2 2017-02-02 Blood pressure systolic 130 mmHg 2017-02-02 Blood pressure diastolic 72 mmHg 2017-02-02 MEDICATIONS Medication Instructions Dosage Frequency Start Date End Date Duration Status Promethazine HCl 25 MG Orally every 12 hrs 1 tablet as needed 12h Active Brilinta 90 MG Orally Twice a day 1 tablet 12h Active Lyrica 50 mg Orally bid 1 capsule 12h Jan, 28 days Active Pantoprazole Sodium 40 mg Orally Once a day 1 tablet 24h 30 days Active HydrOXYzine HCl 25 MG Orally every 8 hrs PRN 1 tablet as needed Jan, 30 day(s) Active Fiorinal 50-325-40 MG Orally every 4 hrs as needed (Maximum of 3 daily) 1 capsule as needed Nov, 30 days Active [place] 3-6-9 Fatty Acids - Active Atorvastatin Calcium 80 MG Orally Once a day 1 tablet 24h Active Levothyroxine Sodium 150 MCG Orally Once a day 1 tablet on an empty stomach in the morning 24h Active Neurontin 400 MG Orally Four times a day 1 tablet 6h Active Losartan Potassium 50 mg Orally Once a day 1 tablet 24h 30 days Active RESULTS No Results PROCEDURES [...]
--- OUTSIDE RECORDS SUMMARY | 2018-01-19 08:08 | XMS REPORT ---
Author Author TROY MORLEY Organization [facility] [place] Address [address] [place] [address] Care Team Providers Care Land Inspector Name Role Phone TROY MORLEY Unavailable PROBLEMS Type Condition ICD9-CM Code GNJ42-HN Code Onset Dates Condition Status SNOMED Code Problem Gastroesophageal reflux disease, esophagitis presence not specified K21.9 Active 467567875 Problem Acute allergic rhinitis due to other allergen J30.89 Active 36153847 Problem Neuropathy G62.9 Active 175425085 Problem Essential hypertension I10 Active 83379842 Problem Coronary artery disease involving [place] coronary artery of [place] heart without angina pectoris I25.10 Active 6202703253176 Problem Acquired hypothyroidism E03.9 Active 668831643 Problem Chronic pain syndrome G89.4 Active 961433203 ALLERGIES No Information SOCIAL HISTORY Never Assessed [...]
--- OUTSIDE RECORDS SUMMARY | 2018-01-19 08:08 | XMS REPORT ---
Author Author TROY MORLEY Organization [facility] Address [address] [place] [address] Care Team Providers Care Ux Ui Designer Name Role Phone TROY MORLEY Unavailable PROBLEMS Type Condition ICD9-CM Code RCR24-CV Code Onset Dates Condition Status SNOMED Code Problem Gastroesophageal reflux disease, esophagitis presence not specified K21.9 Active 531312858 Problem Acute allergic rhinitis due to other allergen J30.89 Active 47870042 Problem Neuropathy G62.9 Active 984254438 Problem Essential hypertension I10 Active 63175688 Problem Coronary artery disease involving [place] coronary artery of [place] heart without angina pectoris I25.10 Active 7728349816530 Problem Acquired hypothyroidism E03.9 Active 907898846 Problem Chronic pain syndrome G89.4 Active 912212351 ALLERGIES No Information SOCIAL HISTORY Never Assessed [...]
--- OUTSIDE RECORDS SUMMARY | 2018-01-19 08:08 | XMS REPORT ---
Author Author NARESH EMMANUEL Organization [facility] Address [address] [place] [address] Care Team Providers Care Lab Intern Name Role Phone CONCETTA EMMANUELICE Unavailable PROBLEMS Type Condition ICD9-CM Code BPJ83-FI Code Onset Dates Condition Status SNOMED Code Problem Gastroesophageal reflux disease, esophagitis presence not specified K21.9 Active 380613971 Problem Acute allergic rhinitis due to other allergen J30.89 Active 80147691 Problem Neuropathy G62.9 Active 171062492 Problem Essential hypertension I10 Active 08050386 Problem Coronary artery disease involving [place] coronary artery of [place] heart without angina pectoris I25.10 Active 9062238577251 Problem Acquired hypothyroidism E03.9 Active 842356035 Problem Chronic pain syndrome G89.4 Active 628586783 ALLERGIES Substance Reaction Event Type Date Status Tylenol Unknown Drug Allergy December, Active Tramadol HCl dizziness Drug Allergy December, Active Sulfamethoxazole-Trimethoprim dizziness Drug Allergy December, Active Oxycodone HCl dizziness Drug Allergy December, Active NSAIDS Unknown Non Drug Allergy December, Active SOCIAL HISTORY Never Assessed PLAN OF CARE Activity Details Follow Up prn Reason: VITAL SIGNS Height 67 in 2017-01-22 Weight 152.4 lbs 2017-01-22 Temperature 98.2 degrees Fahrenheit 2017-01-22 Heart Rate 66 bpm 2017-01-22 Respiratory Rate 22 2017-01-22 BMI 23.87 kg/m2 2017-01-22 Blood pressure systolic 140 mmHg 2017-01-22 Blood pressure diastolic 102 mmHg 2017-01-22 MEDICATIONS Medication Instructions Dosage Frequency Start Date End Date Duration Status Fiorinal 50-325-40 MG Orally every 4 hrs as needed (Maximum of 3 daily) 1 capsule as needed Nov, 30 days Active Paroxetine HCl 40 MG Orally Once a day 1 tablet in the morning 24h Active Chlorzoxazone 500 MG Orally Three times a day 1 tablet 8h Active Levothyroxine Sodium 150 MCG Orally Once a day 1 tablet on an empty stomach in the morning 24h Active Brilinta 90 MG Orally Twice a day 1 tablet 12h Active Atorvastatin Calcium 80 MG Orally Once a day 1 tablet 24h Active Pantoprazole Sodium 40 mg Orally Once a day 1 tablet 24h 30 days Active Losartan Potassium 50 mg Orally Once a day 1 tablet 24h 30 days Active Neurontin 800 MG Orally Four times a day 1 tablet 6h Active PredniSONE 20 MG Orally Once a day 2 tablet 24h December, December, 5 days Active Lbfmhandhy-NGH-Cykqsdsq 50-325-40 MG Orally every 4 hrs 1 capsule as needed 4h Active Promethazine HCl 25 MG Orally every 12 hrs 1 tablet as needed 12h Active [place] 3-6-9 Fatty Acids - Active RESULTS No Results PROCEDURES No Known [...]
--- OUTSIDE RECORDS SUMMARY | 2018-01-19 08:08 | XMS REPORT ---
Author Author HOWIE SCOTT Organization [facility] Address [address] [place] [address] Care Team Providers Care Health Sanitarian Name Role Phone HOWIE SCOTT Unavailable PROBLEMS Type Condition ICD9-CM Code TBZ93-BZ Code Onset Dates Condition Status SNOMED Code Problem Neuropathy G62.9 Active 369654777 Problem Acquired hypothyroidism E03.9 Active 852253862 Problem Coronary artery disease involving [place] coronary artery of [place] heart without angina pectoris I25.10 Active 5824233370370 Problem Gastroesophageal reflux disease, esophagitis presence not specified K21.9 Active 815660917 Problem Chronic pain syndrome G89.4 Active 986644249 Problem Essential hypertension I10 Active 80830065 ALLERGIES No Information SOCIAL HISTORY Never Assessed PLAN OF CARE VITAL SIGNS MEDICATIONS Unknown Medications RESULTS No Results PROCEDURES Procedure Date Ordered Result Body Site FLUARIX QUAD P-FREE 3 AND UP .50 2015November 13, 2016 TDAP (BOOSTRIX) November 13, 2016 IMMUNIZATION ADMIN, EACH ADD (please include units) November 13, 2016 SINGLE IMMUNIZATION ADMIN November 13, 2016 IMMUNIZATIONS Vaccine Route Administration Date Status FLUARIX QUAD P-FREE 3 AND UP .50 2015 IM Intramuscular November 13, 2016 Administered TDAP (BOOSTRIX) IM Intramuscular November 13, 2016 Administered MEDICAL (GENERAL) HISTORY Type Description Date Medical [...]
--- OUTSIDE RECORDS SUMMARY | 2018-01-19 08:09 | XMS REPORT ---
Author Author TROY MORLEY Organization [facility] Address [address] [place] [address] Care Team Providers Care Customer Operations Specialist Name Role Phone TROY MORLEY Unavailable PROBLEMS Type Condition ICD9-CM Code OQD36-JE Code Onset Dates Condition Status SNOMED Code Problem Acquired hypothyroidism E03.9 Active 635113201 Problem Acute allergic rhinitis due to other allergen J30.89 Active 46734709 Problem Neuropathy G62.9 Active 357259682 Problem Essential hypertension I10 Active 99649496 Problem Gastroesophageal reflux disease, esophagitis presence not specified K21.9 Active 918632102 Problem Coronary artery disease involving [place] coronary artery of [place] heart without angina pectoris I25.10 Active 3504030930747 Problem Chronic pain syndrome G89.4 Active 166597273 Problem Lumbago with sciatica, right side M54.41 Active 944896814202784 Problem Lumbago with sciatica, left side M54.42 Active 647645429 Problem Reactive depression F32.9 Active 75050609 Problem Prediabetes R73.03 Active 273326123 Problem Lumbar radiculopathy, chronic M54.16 Active 345700967 Problem Other chronic pain G89.29 Active 66010638 ALLERGIES No Information ENCOUNTERS Encounter Location Date Diagnosis [place] [id number] [place] [address] 16265- 8057 December, [facility] [address] [address] Nov, [place] [id number] [place] [address] 57806- 6624 Nov, [place] [address] [id number] [place] [address] 59403- 7381 Nov, Superior glenoid labrum lesion of left shoulder, subsequent encounter S43.432D [place] [id number] [place] [address] 68905- 7151 Oct, [facility] [address] 96048- 9686 Oct, Neck pain M54.2 ; Lumbago with sciatica, left side M54.42 ; Lumbago with sciatica, right side M54.41 ; Other chronic pain G89.29 and Essential hypertension I10 [facility] [id number] [place] [address] 46134- 2912 Oct, Acute seasonal allergic rhinitis due to pollen J30.1 [place] [address] 23577- 8940 Oct, [place] [address] 70268- 5781 Oct, [place] [address] 74072- 6577 Oct, Impingement syndrome, shoulder, left M75.42 [place] [address] [address] [id number] [place] [address] 41872- 0814 Sep, [facility] [id number] [place] [address] 22715- 0461 Aug, Lumbar radiculopathy, chronic M54.16 [place] [id number] [place] [address] 91440- 3565 Aug, Lumbar radiculopathy, chronic M54.16 ; Pain in left shoulder M25.512 and Other chronic pain G89.29 [facility] [id number] [place] [address] 64107- 1600 Aug, Lumbar radiculopathy, chronic M54.16 [facility] [id number] [place] [address] 92444- 1272 Aug, Essential hypertension I10 [facility] [id number] [place] [address] 14684- 0112 Aug, Lumbar radiculopathy, chronic M54.16 [place] [id number] [place] [address] 17255- 1860 Jul, [place] [address] 40262- 4900 Jul, [place] [address] [id number] [place] [address] 34689- 2781 Jul, Lumbar radiculopathy, chronic M54.16 ; Essential hypertension I10 and Reactive depression F32.9 [place] [address] 75575- 5337 Jun, Lumbago with sciatica, left side M54.42 ; Lumbago with sciatica, right side M54.41 ; Other chronic pain G89.29 ; Prediabetes R73.03 ; Reactive depression F32.9 and Encounter for immunization Z23 [place] [address] 86275- 1877 Jun, [place] [address] 55693- 1384 Jun, Right hip pain M25.551 [place] [address] 31851- 3373 Jun, [place] [id number] [place] [address] 63081- 3157 May, [place] [id number] [place] [address] 36219- 3003 May, [facility] [id number] [place] [address] 02684 -7993 May, Hordeolum externum left upper eyelid H00.014 and Acute allergic rhinitis due to other allergen J30.89 [place] [id number] [place] [address] 16349- 5591 May, [place] [address] [place] [address]- 0078 May, [facility] [id number] [place] [address] 52506- 6089 May, Essential hypertension I10 [facility] [id number] [place] [address] 97351- 7653 29 Apr, 2017 [facility] [id number] [place] [address] 80171- 0957 Apr, Acute seasonal allergic rhinitis due to pollen J30.1 ; Abnormal echocardiogram R93.1 ; Rebound headache G44.40 ; Coronary artery disease involving [place] coronary artery of [place] heart without angina pectoris I25.10 and Lumbar radiculopathy, chronic M54.16 [facility] [id number] [place] [address] 24650- 5605 Apr, [facility] [id number] [place] [address] 55780- 5762 Mar, [facility] [address] 15567- 9190 Mar, [facility] [id number] [place] [address] 66328- 5956 Feb, Right hip pain M25.551 ; Muscle spasm M62.838 and Rebound headache G44.40 [facility] [id number] [place] [address] 53604- 9118 Feb, [facility] [id number] [place] [address] 02901- 8688 Jan, Neuropathy G62.9 [facility] [id number] [place] [address] 25516- 2033 Jan, [facility] [id number] [place] [address] 40887- 6751 Jan, [facility] [id number] [place] [address] 72720- 1495 Jan, [facility] [id number] [address] 0365 Jan, Essential hypertension I10 [facility] [id number] [place] [address] 86424- 8934 Jan, [facility] [id number] [address] 2910 Jan, [facility] [id number] [place] [address] 80387- 5790 Jan, Acquired hypothyroidism E03.9 ; Screening for diabetes mellitus (DM) Z13.1 and Screening for lipid disorders Z13.220 [facility] [id number] [place] [address] 42302- 4292 Jan, Neuropathy G62.9 ; Chronic pain syndrome G89.4 ; Itching L29.9 ; Screening for diabetes mellitus (DM) Z13.1 and Screening for lipid disorders Z13.220 [facility] [id number] [address]- 1777 December, [facility] [address], [place] [address]- 9435 December, [facility] [address] [address] December, Neuropathy G62.9 [facility] [address] [address]- 7165 December, [facility] [address] [address]- 8012 December, [facility] [address] [address]- 1630 December, [facility] [address] [address]- 8216 December, Acquired hypothyroidism E03.9 [facility] [address] [address]- 3357 December, [facility] [id number] [address] [address]28 Nov, [facility] [address] [facility] [id number] [address] [address]7 Nov, Coronary artery disease involving [place] coronary artery of [place] heart without angina pectoris I25.10 ; Gastroesophageal reflux disease, esophagitis presence not specified K21.9 ; Essential hypertension I10 and Tobacco abuse Z72.0 [facility] [address] [facility] [id number] [address] Oct, Encounter for immunization Z23 IMMUNIZATIONS No Known Immunizations SOCIAL HISTORY Never Assessed REASON FOR VISIT refill PLAN OF CARE VITAL SIGNS MEDICATIONS Medication Instructions Dosage Frequency Start Date End Date Duration Status Lyrica 50MG TAKE ONE CAPSULE BY MOUTH TWICE DAILY 28 Active RESULTS No Results PROCEDURES No Known procedures INSTRUCTIONS MEDICATIONS ADMINISTERED No Known Medications MEDICAL (GENERAL) HISTORY Type Description Date Medical [...]
--- OUTSIDE RECORDS SUMMARY | 2018-01-19 08:09 | XMS REPORT ---
Author Author TROY MORLEY Organization [facility] Address [address] [place] [address] Care Team Providers Care Clinical Team Lead Name Role Phone TROY MORLEY Unavailable PROBLEMS Type Condition ICD9-CM Code KUW11-AM Code Onset Dates Condition Status SNOMED Code Problem Acquired hypothyroidism E03.9 Active 598354738 Problem Acute allergic rhinitis due to other allergen J30.89 Active 16945899 Problem Neuropathy G62.9 Active 592891588 Problem Essential hypertension I10 Active 59503732 Problem Gastroesophageal reflux disease, esophagitis presence not specified K21.9 Active 095127162 Problem Coronary artery disease involving [place] coronary artery of [place] heart without angina pectoris I25.10 Active 3794474581492 Problem Chronic pain syndrome G89.4 Active 897896603 Problem Lumbago with sciatica, right side M54.41 Active 913795738415494 Problem Lumbago with sciatica, left side M54.42 Active 955810286 Problem Reactive depression F32.9 Active 16141791 Problem Prediabetes R73.03 Active 249163051 Problem Lumbar radiculopathy, chronic M54.16 Active 831379091 Problem Other chronic pain G89.29 Active 12504255 ALLERGIES No Information ENCOUNTERS Encounter Location Date Diagnosis [facility] [id number] [place] [address] 91652- 9116 Nov, [facility] [address] [address]- 8073 Nov, [facility] [id number] [place] [address] 49102- 6259 Nov, [facility] [address] [place] [address] 08002- 8871 Oct, [facility] [address] [id number] [place] [address] 09895- 3449 Oct, Neck pain M54.2 ; Lumbago with sciatica, left side M54.42 ; Lumbago with sciatica, right side M54.41 ; Other chronic pain G89.29 and Essential hypertension I10 [facility] [address] [id number] [place] [address] 04995- 9259 Oct, Acute seasonal allergic rhinitis due to pollen J30.1 [place] [address] 08200- 7575 Oct, [place] [address] 18624- 1326 Oct, [place] [address] 24464- 3869 Oct, Impingement syndrome, shoulder, left M75.42 [place] [address] 85737- 0357 Sep, [place] [address] 10406- 6597 Aug, Lumbar radiculopathy, chronic M54.16 [place] [address] 18845- 2431 Aug, Lumbar radiculopathy, chronic M54.16 ; Pain in left shoulder M25.512 and Other chronic pain G89.29 [place] [address] 89433- 9150 Aug, Lumbar radiculopathy, chronic M54.16 [place] [address] 77697- 1944 Aug, Essential hypertension I10 [place] [address] 24382- 2170 Aug, Lumbar radiculopathy, chronic M54.16 [place] [address] 04895- 2136 Jul, [facility] [id number] [place] [address] 12929- 5766 Jul, [facility] [address] 72160- 3539 Jul, Lumbar radiculopathy, chronic M54.16 ; Essential hypertension I10 and Reactive depression F32.9 [place] [address] 36638- 7967 Jun, Lumbago with sciatica, left side M54.42 ; Lumbago with sciatica, right side M54.41 ; Other chronic pain G89.29 ; Prediabetes R73.03 ; Reactive depression F32.9 and Encounter for immunization Z23 [facility] [address] 14474- 2008 Jun, [place] [address] 46951- 8418 Jun, Right hip pain M25.551 [facility] [address] 65714- 6676 Jun, [facility] [address] 62535- 9841 May, [facility] [address] [id number] [place] [address] 70254- 0593 May, [facility] [id number] [place] [address] 22870 -5604 May, Hordeolum externum left upper eyelid H00.014 and Acute allergic rhinitis due to other allergen J30.89 [facility] [address] [id number] [place] [address] 92230- 5454 May, [facility] [id number] [place] [address] 95083- 3027 May, [facility] [address] [id number] [place] [address] 06976- 7098 May, Essential hypertension I10 [place] [address] [id number] [place] [address] 60373- 5862 Apr, [place] [address] 24141- 3708 Apr, Acute seasonal allergic rhinitis due to pollen J30.1 ; Abnormal echocardiogram R93.1 ; Rebound headache G44.40 ; Coronary artery disease involving [place] coronary artery of [place] heart without angina pectoris I25.10 and Lumbar radiculopathy, chronic M54.16 [place] [address] [id number] [place] [address] 36316- 1725 Apr, [place] [address] 05473- 9513 Mar, [place] [address] 58740- 8194 Mar, [place] [address] 86577- 4827 Feb, Right hip pain M25.551 ; Muscle spasm M62.838 and Rebound headache G44.40 [place] [address] [id number] [place] [address] 87549- 0764 Feb, [place] [address] [address] [id number] [place] [address] 02329- 7482 Jan, Neuropathy G62.9 [place] [address] [place] [address] [id number] [place] [address] 00275- 2255 Jan, [place] [address] [id number] [place] [address] 33398- 6784 Jan, [place] [address] 72149- 0036 13 Jan, 2017 [place] [address] [address] [id number] [place] [address] 45081- 8264 Jan, Essential hypertension I10 [place] [address] [address] [id number] [place] [address] 46988- 3212 Jan, [facility] [address] [address]- 6477 Jan, [facility] [id number] [place] [address] 56434- 1152 Jan, Acquired hypothyroidism E03.9 ; Screening for diabetes mellitus (DM) Z13.1 and Screening for lipid disorders Z13.220 [facility] [id number] [place] [address] 80023- 7246 Jan, Neuropathy G62.9 ; Chronic pain syndrome G89.4 ; Itching L29.9 ; Screening for diabetes mellitus (DM) Z13.1 and Screening for lipid disorders Z13.220 [facility] [address] [id number] [place] [address] 11393- 9288 December, [facility] [id number] [place] [address] 11719- 6844 December, [facility] [id number] [address] -6082 December, Neuropathy G62.9 [facility] [id number] [place] [address] 16878- 9538 December, [facility] [id number] [place] [address] 23572- 1546 December, [facility] [id number] [place] [address] 64678- 7540 December, [facility] [id number] [place] [address] 42860- 8382 December, Acquired hypothyroidism E03.9 [facility] [id number] [place] [address] 13295- 9213 December, [facility] [id number] [address]- 9061 Nov, [facility] [id number] [place] [address] 25697- 0082 Nov, Coronary artery disease involving [place] coronary artery of [place] heart without angina pectoris I25.10 ; Gastroesophageal reflux disease, esophagitis presence not specified K21.9 ; Essential hypertension I10 and Tobacco abuse Z72.0 [facility] [address] [facility] [id number] [place] [address]- 7128 Oct, Encounter for immunization Z23 IMMUNIZATIONS No Known Immunizations SOCIAL HISTORY Never Assessed REASON FOR VISIT Requesting referral PLAN OF CARE VITAL SIGNS MEDICATIONS Unknown [...]
--- OUTSIDE RECORDS SUMMARY | 2018-01-19 08:09 | XMS REPORT ---
Author Author TROY MORLEY Organization [facility] Address [address] [place] [address] Care Team Providers Care Raveler Name Role Phone TROY MORLEY Unavailable PROBLEMS Type Condition ICD9-CM Code XVM47-KM Code Onset Dates Condition Status SNOMED Code Problem Acquired hypothyroidism E03.9 Active 095824649 Problem Acute allergic rhinitis due to other allergen J30.89 Active 61458521 Problem Neuropathy G62.9 Active 637735815 Problem Essential hypertension I10 Active 49997171 Problem Gastroesophageal reflux disease, esophagitis presence not specified K21.9 Active 403778474 Problem Coronary artery disease involving jamul coronary artery of jamul heart without angina pectoris I25.10 Active 6887205279028 Problem Chronic pain syndrome G89.4 Active 589285607 Problem Lumbago with sciatica, right side M54.41 Active 878018903230103 Problem Lumbago with sciatica, left side M54.42 Active 520554738 Problem Reactive depression F32.9 Active 20085705 Problem Prediabetes R73.03 Active 629734965 Problem Lumbar radiculopathy, chronic M54.16 Active 090961783 Problem Other chronic pain G89.29 Active 56061707 ALLERGIES No Information ENCOUNTERS Encounter Location Date Diagnosis [place] [id number], [place] [address] Nov, [place] [id number], [place] [address] Nov, Superior glenoid labrum lesion of left shoulder, subsequent encounter S43.432D [facility] [id number] [place] [address] 51101- 8787 Oct, [facility] [id number], [place] [address] Oct, Neck pain M54.2 ; Lumbago with sciatica, left side M54.42 ; Lumbago with sciatica, right side M54.41 ; Other chronic pain G89.29 and Essential hypertension I10 [facility] [id number] [place] [address] 78903- 4744 Oct, Acute seasonal allergic rhinitis due to pollen J30.1 [facility] [address] [address]- 6113 Oct, [facility] [address] 31367- 6417 Oct, [place] [address] [address]- 28[address] Oct, Impingement syndrome, shoulder, left M75.42 [place] [address] 73186- 8023 Sep, [facility] [address] 41327- 3579 Aug, Lumbar radiculopathy, chronic M54.16 [place] [address] 67884- 8605 Aug, Lumbar radiculopathy, chronic M54.16 ; Pain in left shoulder M25.512 and Other chronic pain G89.29 [place] [id number] [place] [address] 97759- 4315 Aug, Lumbar radiculopathy, chronic M54.16 [facility] [id number] [place] [address] 62378- 5870 Aug, Essential hypertension I10 [facility] [address] 70125- 4594 Aug, Lumbar radiculopathy, chronic M54.16 [facility] [id number] [place] [address] 99200- 1365 Jul, [facility] [address] [place] [address] 7790 Jul, [facility] [id number] [place] [address] 10709- 2822 Jul, Lumbar radiculopathy, chronic M54.16 ; Essential hypertension I10 and Reactive depression F32.9 [facility] [address] 46598- 5064 Jun, Lumbago with sciatica, left side M54.42 ; Lumbago with sciatica, right side M54.41 ; Other chronic pain G89.29 ; Prediabetes R73.03 ; Reactive depression F32.9 and Encounter for immunization Z23 [facility] [address] 33777- 3706 Jun, [place] [address] 93863- 9327 Jun, Right hip pain M25.551 [facility] [id number] [place] [address] 00226- 0871 Jun, [facility] [id number] [place] [address] 43249- 7951 May, [facility] [id number] [place] [address] 14308- 1623 May, [facility] [id number] [place] [address] 53011 -1737 May, Hordeolum externum left upper eyelid H00.014 and Acute allergic rhinitis due to other allergen J30.89 [facility] [id number] [place] [address] 75540- 3604 May, [facility] [id number] [place] [address] 48848- 8481 May, [facility] [id number] [place] [address] 24634- 3977 May, Essential hypertension I10 [facility] [address] [place] [address] 1837 Apr, [facility] [id number] [place] [address] 78421- 4066 Apr, Acute seasonal allergic rhinitis due to pollen J30.1 ; Abnormal echocardiogram R93.1 ; Rebound headache G44.40 ; Coronary artery disease involving jamul coronary artery of jamul heart without angina pectoris I25.10 and Lumbar radiculopathy, chronic M54.16 [facility] [address] 69127- 3547 Apr, [facility] [address] 14944- 8960 Mar, [facility] [address] 49914- 4559 Mar, [place] [address] 29624- 7306 Feb, Right hip pain M25.551 ; Muscle spasm M62.838 and Rebound headache G44.40 [facility] [id number] [place] [address] 07805- 3636 Feb, [facility] [address] 50902- 0943 Jan, Neuropathy G62.9 [facility] [address] 18935- 4215 Jan, [facility] [address] 74491- 2515 Jan, [facility] [id number] [place] [address] 63757- 4462 Jan, [facility] [address] 87501- 3464 Jan, Essential hypertension I10 [facility] [id number] [place] [address] 89245- 7085 Jan, [facility] [address], [place] [address] 6940 Jan, [facility] [id number] [place] [address] 51780- 2794 Jan, Acquired hypothyroidism E03.9 ; Screening for diabetes mellitus (DM) Z13.1 and Screening for lipid disorders Z13.220 [facility] [id number] [place] [address] 45969- 9080 Jan, Neuropathy G62.9 ; Chronic pain syndrome G89.4 ; Itching L29.9 ; Screening for diabetes mellitus (DM) Z13.1 and Screening for lipid disorders Z13.220 [facility] [id number] [place] [address] 91889- 4827 December, [facility] [id number], [place] [address] December, [facility] [id number] [place] [address] 90998 -6650 December, Neuropathy G62.9 [facility] [address], [place] [address]- 9804 December, [facility] [id number] [place] [address] 43495- 5336 December, [facility] [address], [place] [address]- 9582 December, [facility] [id number] [place] [address] 6237 December, Acquired hypothyroidism E03.9 [facility] [address], [place] [address]- 5625 December, [facility] [id number] [place] [address] 24881- 6643 Nov, [facility] [id number], [place] [address]- 7329 Nov, Coronary artery disease involving jamul coronary artery of jamul heart without angina pectoris I25.10 ; Gastroesophageal reflux disease, esophagitis presence not specified K21.9 ; Essential hypertension I10 and Tobacco abuse Z72.0 [facility] [address] [facility] [id number] [address] Oct, Encounter for immunization Z23 IMMUNIZATIONS No Known Immunizations SOCIAL HISTORY Never Assessed REASON FOR VISIT Medication refill request PLAN OF CARE VITAL SIGNS MEDICATIONS Unknown [...]
--- OUTSIDE RECORDS SUMMARY | 2018-01-19 08:09 | XMS REPORT ---
Author Author TROY MORLEY Organization [facility] Address [address] [place] [address] Care Team Providers Care Ingot Caster Name Role Phone TROY MORLEY Unavailable PROBLEMS Type Condition ICD9-CM Code USJ75-QU Code Onset Dates Condition Status SNOMED Code Problem Gastroesophageal reflux disease, esophagitis presence not specified K21.9 Active 520173898 Problem Acute allergic rhinitis due to other allergen J30.89 Active 80878122 Problem Neuropathy G62.9 Active 706285733 Problem Essential hypertension I10 Active 01053357 Problem Coronary artery disease involving [place] coronary artery of [place] heart without angina pectoris I25.10 Active 5834394668276 Problem Acquired hypothyroidism E03.9 Active 429124979 Problem Chronic pain syndrome G89.4 Active 600220770 ALLERGIES No Information SOCIAL HISTORY Never Assessed PLAN OF CARE VITAL SIGNS MEDICATIONS Medication Instructions Dosage Frequency Start Date End Date Duration Status Levothyroxine Sodium 150 MCG Orally Once a day 1 tablet on an empty stomach in the morning 24h Active RESULTS No Results PROCEDURES No Known [...]
[2018-01-19 08:10] VITALS: BP 137/91
--- OUTSIDE RECORDS SUMMARY | 2018-01-19 08:10 | XMS REPORT ---
Author Author TROY MORLEY Organization [facility] Address [address] [place] [address] Care Team Providers Care Dice Dealer Name Role Phone TROY MORLEY Unavailable PROBLEMS Type Condition ICD9-CM Code LEM57-IB Code Onset Dates Condition Status SNOMED Code Problem Acquired hypothyroidism E03.9 Active 980552833 Problem Acute allergic rhinitis due to other allergen J30.89 Active 36550199 Problem Neuropathy G62.9 Active 756033521 Problem Essential hypertension I10 Active 46921029 Problem Gastroesophageal reflux disease, esophagitis presence not specified K21.9 Active 117098284 Problem Coronary artery disease involving [place] coronary artery of [place] heart without angina pectoris I25.10 Active 2809381474578 Problem Chronic pain syndrome G89.4 Active 502450438 Problem Lumbago with sciatica, right side M54.41 Active 185649117987952 Problem Lumbago with sciatica, left side M54.42 Active 102268573 Problem Reactive depression F32.9 Active 68246569 Problem Prediabetes R73.03 Active 818891515 Problem Lumbar radiculopathy, chronic M54.16 Active 847768502 Problem Other chronic pain G89.29 Active 70522816 ALLERGIES No Information ENCOUNTERS Encounter Location Date Diagnosis [place] [id number], [place] [address] Nov, [place] [id number], [place] [address]- [address] Nov, Superior glenoid labrum lesion of left shoulder, subsequent encounter S43.432D [facility] [id number] [place] [address] 80585- 6834 Oct, [facility] [id number], [place] [address]- 6810 Oct, Neck pain M54.2 ; Lumbago with sciatica, left side M54.42 ; Lumbago with sciatica, right side M54.41 ; Other chronic pain G89.29 and Essential hypertension I10 [facility] [id number] [place] [address] 10085- 3156 Oct, Acute seasonal allergic rhinitis due to pollen J30.1 [facility] [address] 08844- 7091 Oct, [facility] [address] 57465- 3813 Oct, [place] [address] 89295- 5279 Oct, Impingement syndrome, shoulder, left M75.42 [place] [address] 87265- 9246 Sep, [facility] [address] 75371- 5682 Aug, Lumbar radiculopathy, chronic M54.16 [place] [address] 77578- 1816 Aug, Lumbar radiculopathy, chronic M54.16 ; Pain in left shoulder M25.512 and Other chronic pain G89.29 [place] [id number] [place] [address] 60695- 6677 Aug, Lumbar radiculopathy, chronic M54.16 [facility] [id number] [place] [address] 08018- 2556 Aug, Essential hypertension I10 [facility] [address] 68890- 3941 Aug, Lumbar radiculopathy, chronic M54.16 [facility] [id number] [place] [address] 71416- 0201 Jul, [facility] [address] [place] [address]- 2893 Jul, [facility] [id number] [place] [address] 77522- 9187 Jul, Lumbar radiculopathy, chronic M54.16 ; Essential hypertension I10 and Reactive depression F32.9 [facility] [address] 43562- 7789 Jun, Lumbago with sciatica, left side M54.42 ; Lumbago with sciatica, right side M54.41 ; Other chronic pain G89.29 ; Prediabetes R73.03 ; Reactive depression F32.9 and Encounter for immunization Z23 [facility] [address] 72732- 0290 Jun, [place] [address] 23533- 1829 Jun, Right hip pain M25.551 [facility] [id number] [place] [address] 35228- 7994 Jun, [facility] [id number] [place] [address] 23548- 8489 May, [facility] [id number] [place] [address] 79759- 4378 May, [facility] [id number] [place] [address] 36721 -5852 May, Hordeolum externum left upper eyelid H00.014 and Acute allergic rhinitis due to other allergen J30.89 [facility] [id number] [place] [address] 59448- 5300 May, [facility] [id number] [place] [address] 21956- 1110 May, [facility] [id number] [place] [address] 65811- 7698 May, Essential hypertension I10 [facility] [address] [place] [address]- 9001 Apr, [facility] [id number] [place] [address] 09169- 5966 Apr, Acute seasonal allergic rhinitis due to pollen J30.1 ; Abnormal echocardiogram R93.1 ; Rebound headache G44.40 ; Coronary artery disease involving [place] coronary artery of [place] heart without angina pectoris I25.10 and Lumbar radiculopathy, chronic M54.16 [facility] [address] 43913- 3255 Apr, [facility] [address] 62858- 3133 Mar, [facility] [address] 24940- 8233 Mar, [place] [address] 79663- 1630 Feb, Right hip pain M25.551 ; Muscle spasm M62.838 and Rebound headache G44.40 [facility] [id number] [place] [address] 28015- 4686 Feb, [facility] [address] 18051- 3691 Jan, Neuropathy G62.9 [facility] [address] 14225- 4922 Jan, [facility] [address] 99159- 2276 Jan, [facility] [id number] [place] [address] 64962- 8126 Jan, [facility] [address] 80232- 1875 Jan, Essential hypertension I10 [facility] [id number] [place] [address] 14472- 6534 Jan, [facility] [address], [place] [address]- 9548 Jan, [facility] [id number] [place] [address] 10077- 2393 Jan, Acquired hypothyroidism E03.9 ; Screening for diabetes mellitus (DM) Z13.1 and Screening for lipid disorders Z13.220 [facility] [address] [place] [address] 70112- 2085 Jan, Neuropathy G62.9 ; Chronic pain syndrome G89.4 ; Itching L29.9 ; Screening for diabetes mellitus (DM) Z13.1 and Screening for lipid disorders Z13.220 [facility] [id number] [place] [address] 50365- 4474 December, [facility] [address], [place] [address]- 4701 December, [facility] [id number] [place] [address] 39827 -1363 December, Neuropathy G62.9 [facility] [address], [place] [address]- 7791 December, [facility] [id number] [place] [address] 98033- 1581 December, [facility] [address], [place] [address]- 6440 December, [facility] [address], [place] [address]- 7065 December, Acquired hypothyroidism E03.9 [facility] [address], [place] [address]- 7656 December, [facility] [id number] [place] [address] 77119- 0091 Nov, [facility] [id number], [place] [address]- 1463 Nov, Coronary artery disease involving [place] coronary artery of [place] heart without angina pectoris I25.10 ; Gastroesophageal reflux disease, esophagitis presence not specified K21.9 ; Essential hypertension I10 and Tobacco abuse Z72.0 [facility] [address] [facility] [id number] [place] [address]- 8679 Oct, Encounter for immunization Z23 IMMUNIZATIONS No Known Immunizations SOCIAL HISTORY Never Assessed REASON FOR VISIT Refill request PLAN OF CARE VITAL SIGNS MEDICATIONS [...]
--- OUTSIDE RECORDS SUMMARY | 2018-01-19 08:10 | XMS REPORT ---
Author Author TROY MORLEY Organization [facility] Address [address] [place] [address] Care Team Providers Care Manpower Development Specialist Manager Name Role Phone TROY MORLEY Unavailable PROBLEMS Type Condition ICD9-CM Code INM67-EP Code Onset Dates Condition Status SNOMED Code Problem Acquired hypothyroidism E03.9 Active 841988975 Problem Acute allergic rhinitis due to other allergen J30.89 Active 49718061 Problem Neuropathy G62.9 Active 702281751 Problem Essential hypertension I10 Active 63052754 Problem Gastroesophageal reflux disease, esophagitis presence not specified K21.9 Active 373861120 Problem Coronary artery disease involving nome coronary artery of nome heart without angina pectoris I25.10 Active 6139141404385 Problem Chronic pain syndrome G89.4 Active 108735626 Problem Lumbago with sciatica, right side M54.41 Active 576459252434865 Problem Lumbago with sciatica, left side M54.42 Active 785238426 Problem Reactive depression F32.9 Active 72537507 Problem Prediabetes R73.03 Active 982928332 Problem Lumbar radiculopathy, chronic M54.16 Active 632662751 Problem Other chronic pain G89.29 Active 97483663 ALLERGIES No Information ENCOUNTERS Encounter Location Date Diagnosis [facility] [id number] [place] [address] Nov, [facility] [address] [address] Nov, [facility] [id number] [place] [address]149- 5390 Nov, [facility] [id number] [place] [address] 33430- 1509 Oct, [facility] [id number] [place] [address] 03623- 7877 Oct, Neck pain M54.2 ; Lumbago with sciatica, left side M54.42 ; Lumbago with sciatica, right side M54.41 ; Other chronic pain G89.29 and Essential hypertension I10 [facility] [id number] [place] [address] 58273- 6325 Oct, Acute seasonal allergic rhinitis due to pollen J30.1 [place] [address] [address]- [address] Oct, [place] [address] [address]- [address] Oct, [place] [address] [address]- [address] Oct, Impingement syndrome, shoulder, left M75.42 [place] [address] [address]- [address] Sep, [place] [address] 82571- 7894 Aug, Lumbar radiculopathy, chronic M54.16 [place] [address] [address]56- [address]265 Aug, Lumbar radiculopathy, chronic M54.16 ; Pain in left shoulder M25.512 and Other chronic pain G89.29 [place] [address] [address]- 2478 Aug, Lumbar radiculopathy, chronic M54.16 [place] [address] 65946- 3526 Aug, Essential hypertension I10 [place] [address] 99106- 6309 Aug, Lumbar radiculopathy, chronic M54.16 [place] [address] 11567- 8127 Jul, [facility] [id number] [place] [address] 50352- 9410 Jul, [facility] [address] [address]- [address] Jul, Lumbar radiculopathy, chronic M54.16 ; Essential hypertension I10 and Reactive depression F32.9 [place] [address] 62[address]- [address]34 Jun, Lumbago with sciatica, left side M54.42 ; Lumbago with sciatica, right side M54.41 ; Other chronic pain G89.29 ; Prediabetes R73.03 ; Reactive depression F32.9 and Encounter for immunization Z23 [facility] [address] [address]- [address] Jun, [place] [address] 68082- 1215 Jun, Right hip pain M25.551 [facility] [address] 09162- 9675 Jun, [facility] [address] 36591- 0781 May, [facility] [id number] [place] [address] 17462- 8465 May, [facility] [id number] [place] [address]36 -[address]100 May, Hordeolum externum left upper eyelid H00.014 and Acute allergic rhinitis due to other allergen J30.89 [facility] [id number] [place] [address] 75629- 7201 May, [facility] [id number] [place] [address] 56796- 6902 May, [facility] [id number] [place] [address] 36304- 3824 May, Essential hypertension I10 [place] [id number] [place] [address] 40953- 4516 Apr, [place] [address] 32160- 0719 Apr, Acute seasonal allergic rhinitis due to pollen J30.1 ; Abnormal echocardiogram R93.1 ; Rebound headache G44.40 ; Coronary artery disease involving nome coronary artery of nome heart without angina pectoris I25.10 and Lumbar radiculopathy, chronic M54.16 [place] [id number] [place] [address] 88360- 5331 Apr, [place] [address] 28654- 0090 Mar, [place] [address] 60104- 1282 Mar, [place] [address] 38156- 7034 Feb, Right hip pain M25.551 ; Muscle spasm M62.838 and Rebound headache G44.40 [place] [id number] [place] [address] 44787- 1664 Feb, [place] [id number] [place] [address] 56815- 9507 Jan, Neuropathy G62.9 [place] [id number] [place] [address] 01244- 6312 Jan, [place] [id number] [place] [address] 42172- 2880 Jan, [place] [address] 8[address]95- [address] 13 Jan, 2017 [place] [id number] [place] [address] 32720- 0874 Jan, Essential hypertension I10 [place] [id number] [place] [address] 76921- 1351 Jan, [facility] [address] [address]- [address] Jan, [facility] [id number] [place] [address] 07960- 7048 Jan, Acquired hypothyroidism E03.9 ; Screening for diabetes mellitus (DM) Z13.1 and Screening for lipid disorders Z13.220 [facility] [id number] [place] [address] 33011- 3830 Jan, Neuropathy G62.9 ; Chronic pain syndrome G89.4 ; Itching L29.9 ; Screening for diabetes mellitus (DM) Z13.1 and Screening for lipid disorders Z13.220 [facility] [id number] [place] [address] 78060- 1622 December, [facility] [id number] [place] [address] 92882- 3995 December, [facility] [id number] [address] December, Neuropathy G62.9 [facility] [id number] [place] [address] 25388- 3372 December, [facility] [id number] [place] [address] 49375- 7743 December, [facility] [id number] [place] [address] 39106- 4659 December, [facility] [id number] [place] [address] 15538- 4881 December, Acquired hypothyroidism E03.9 [facility] [id number] [place] [address] 89916- 3493 December, [facility] [id number] [address]- 89[address] Nov, [facility] [id number] [place] [address] 82942- 8004 Nov, Coronary artery disease involving nome coronary artery of nome heart without angina pectoris I25.10 ; Gastroesophageal reflux disease, esophagitis presence not specified K21.9 ; Essential hypertension I10 and Tobacco abuse Z72.0 [facility] [address] [facility] [id number] [address] Oct, Encounter for immunization Z23 IMMUNIZATIONS No [...]
--- OUTSIDE RECORDS SUMMARY | 2018-01-19 08:12 | XMS REPORT | Continuity of Care Document ---
Author Author [facility] Organization [facility] Address Unknown Phone Unavailable Allergies Active Description Code Type Severity Reaction Onset Reported/Identified Relationship to Patient Clinical Status Yes PERCOCET PERCOCET SEVERE Yes SULFA (SULFONAMIDE ANTIBIOTICS) SULFA (SULFONAMIDE A SEVERE Yes TRAMADOL TRAMADOL SEVERE Yes PERCOCET SEVERE DIZZINESS Yes SULFA (SULFONAMIDE ANTIBIOTICS) SEVERE GI PROBLEMS - NAUSEA Yes TRAMADOL SEVERE DIZZINESS Yes acetaminophen [id number] Drug Allergy Unknown DIZZY, FACE FLU 11/15/2014 Yes oxycodone [id number] Drug Allergy Unknown DIZZY, FACE FLU 11/15/2014 Yes oxycodone HCl [id number] Drug Allergy Unknown DIZZY, FACE FLU 11/15/2014 Yes Sulfa (Sulfonamide Antibiotics) [id number] Drug Allergy Unknown N/V 2014 Yes tramadol [id number] Drug Allergy Unknown N/V 11/15/2014 Yes acetaminophen [id number] Drug Allergy Moderate DIZZY, FACE FLU 05/18/2017 Yes oxycodone [id number] Drug Allergy Moderate DIZZY, FACE FLU 05/18/2017 Yes oxycodone HCl [id number] Drug Allergy Moderate DIZZY, FACE FLU 05/18/2017 Yes Sulfa (Sulfonamide Antibiotics) [id number] Drug Allergy Mild N/V 2016 Yes tramadol [id number] Drug Allergy Mild N/V 05/18/2017 Medications Medication Packaging Start Date Stop Date Route Dosage Sig KETOROLAC VIAL INJ 30 MG/CC (TORADOL VIAL) MG 10/02/2016 10/02/2016 PRN ONCE LACTATED RINGERS 500CC IV BAG INJ 0 ml 10/02/2016 10/02/2016 ONCE&1611 ONDANSETRON VIAL INJ 4 MG/2CC (ZOFRAN 2CC VIAL) MG 10/02/2016 10/02/2016 PRN ONCE FAMOTIDINE VIAL INJ 20 MG/2CC (PEPCID VIAL) MG 10/02/2016 10/02/2016 ONCE&1737 SIMVASTATIN TAB 10 MG (ZOCOR) MG 10/08/2016 QPM&2000 ALPRAZOLAM XR TAB 1 MG (XANAX XR) MG 10/02/2016 10/12/2016 QID&0800,1200,1700,2200 GABAPENTIN TAB 800 MG (NEURONTIN) MG 10/03/2016 10/09/2016 Daily&0900 LOSARTAN TAB 25 MG (COZAAR) MG 11/201610/09/2016 Daily&0900 PAROXETINE TAB 20 MG (PAXIL) MG 11/201610/05/2016 Daily&0900 LEVOTHYROXINE TAB 150 MCG (SYNTHROID) MCG 10/03/2016 10/09/2016 Daily&0900 Problems Date Dx Coded Attending Type Code Diagnosis Diagnosed By 11/15/2014 Ot 521.00 UNSPEC DENTAL CARIES 11/15/2014 Ot 525.9 DENTAL DISORDER NOS 12/26/2014 MAC PELLETIER 719.46 JOINT PAIN-L/LEG 12/26/2014 MAC PELLETIER E888.8 FALL NEC 02/28/2016 LEILA LEMUS Ot 427.9 CARDIAC DYSRHYTHMIA NOS 02/28/2016 LIU FIELD MD Ot F17.210 NICOTINE DEPENDENCE, CIGARETTES, UNCOMPL 02/28/2016 LIU FIELD MD Ot M54.14 RADICULOPATHY, THORACIC REGION 02/28/2016 LIU FIELD MD Ot M54.6 PAIN IN THORACIC SPINE 02/28/2016 LIU FIELD MD Ot Z85.820 PERSONAL HISTORY OF MALIGNANT MELANOMA O 02/28/2016 LEILA LEMUS Ot 427.9 CARDIAC DYSRHYTHMIA NOS 03/04/2016 LIU FIELD MD Ot F17.210 NICOTINE DEPENDENCE, CIGARETTES, UNCOMPL 03/04/2016 LIU FIELD MD Ot M54.14 RADICULOPATHY, THORACIC REGION 03/04/2016 LIU FIELD MD Ot M54.6 PAIN IN THORACIC SPINE 03/04/2016 LIU FIELD MD Ot Z85.820 PERSONAL HISTORY OF MALIGNANT MELANOMA O 03/07/2016 LEILA LEMUSP Ot 427.9 CARDIAC DYSRHYTHMIA NOS 03/12/2016 RENE SIMMONS MD Ot M54.6 PAIN IN THORACIC SPINE 03/12/2016 RENE SIMMONS MD Ot R20.2 PARESTHESIA OF SKIN 04/01/2016 RENE SIMMONS MD Ot M54.6 PAIN IN THORACIC SPINE 04/01/2016 RENE SIMMONS MD Ot R20.2 PARESTHESIA OF SKIN 06/08/2016 LEILA LEMUS PRINT GRAPHIC DESIGNER Ot 427.9 CARDIAC DYSRHYTHMIA NOS 06/08/2016 RENE SIMMONS MD Ot M54.6 PAIN IN THORACIC SPINE 06/08/2016 RENE SIMMONS MD Ot R20.2 PARESTHESIA OF SKIN 10/01/2016 LEILA LEMUS Ot 427.9 CARDIAC DYSRHYTHMIA NOS 10/01/2016 RENE SIMMONS MD Ot M54.6 PAIN IN THORACIC SPINE 10/01/2016 RENE SIMMONS MD Ot R20.2 PARESTHESIA OF SKIN 10/02/2016 Mohamud Garner 244.9 10/02/2016 Mohamud Garner 272.4 10/02/2016 Mohamud Garner 305.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, HYPNOTIC OR ANXIOLYTIC ABUSE, UNSPECIFIED 10/02/2016 Mohamud Garner 401.0 10/02/2016 Mohamud Garner E03.9 HYPOTHYROIDISM, UNSPECIFIED 10/02/2016 Mohamud Garner E78.5 HYPERLIPIDEMIA, UNSPECIFIED 10/02/2016 Mohamud Garner F13.90 SEDATIVE, HYPNOTIC, OR ANXIOLYTIC USE, UNSP, UNCOMPLICATED 10/02/2016 Mohamud Garner I10 ESSENTIAL (PRIMARY) HYPERTENSION 10/03/2016 Mohamud Garner 535.00 ACUTE GASTRITIS, WITHOUT MENTION OF HEMORRHAGE 10/03/2016 Mohamud Garner K29.00 ACUTE GASTRITIS WITHOUT BLEEDING 10/03/2016 Mohamud Garner 786.50 UNSPECIFIED CHEST PAIN 10/03/2016 Mohamud Garner 786.52 PAINFUL RESPIRATION 10/03/2016 Mohamud Garner R07.1 CHEST PAIN ON BREATHING 10/03/2016 Mohamud Garner R07.9 CHEST PAIN, UNSPECIFIED 11/16/2016 LEILA LEMUS Ot 427.9 CARDIAC DYSRHYTHMIA NOS 11/16/2016 RENE SIMMONS MD Ot M54.6 PAIN IN THORACIC SPINE 11/16/2016 RENE SIMMONS MD Ot R20.2 PARESTHESIA OF SKIN 11/18/2016 RAH HART MD Ot E03.9 HYPOTHYROIDISM, UNSPECIFIED 11/18/2016 RAH HART MD Ot E78.5 HYPERLIPIDEMIA, UNSPECIFIED 11/18/2016 RAH HART MD Ot F17.210 NICOTINE DEPENDENCE, CIGARETTES, UNCOMPL 11/18/2016 RAH HART MD Ot I10 ESSENTIAL (PRIMARY) HYPERTENSION 11/18/2016 RAH HART MD Ot I21.4 NON-ST ELEVATION (NSTEMI) MYOCARDIAL INF 11/18/2016 RAH HART MD Ot I25.10 ATHSCL HEART DISEASE OF [place] CORONARY 11/18/2016 RAH HART MD Ot J81.1 CHRONIC PULMONARY EDEMA 11/18/2016 RAH HART MD Ot Z82.49 FAMILY HX OF ISCHEM HEART DIS AND OTH DI 12/08/2016 LEILA LEMUS Ot 427.9 CARDIAC DYSRHYTHMIA NOS 12/08/2016 RENE SIMMONS MD Ot M54.6 PAIN IN THORACIC SPINE 12/08/2016 RENE SIMMONS MD Ot R20.2 PARESTHESIA OF SKIN 12/09/2016 JAILENE MILLER MD Ot I21.4 NON-ST ELEVATION (NSTEMI) MYOCARDIAL INF 12/09/2016 JAILENE MILLER MD Ot I24.9 ACUTE ISCHEMIC HEART DISEASE, UNSPECIFIE 12/18/2016 JAILENE MILLER MD Ot I21.4 NON-ST ELEVATION (NSTEMI) MYOCARDIAL INF 12/18/2016 JAILENE MILLER MD Ot I24.9 ACUTE ISCHEMIC HEART DISEASE, UNSPECIFIE 01/01/2017 LEILA LEMUSP Ot 427.9 CARDIAC DYSRHYTHMIA NOS 01/01/2017 RENE SIMMONS MD Ot M54.6 PAIN IN THORACIC SPINE 01/01/2017 RENE SIMMONS MD Ot R20.2 PARESTHESIA OF SKIN 01/01/2017 JAILENE MILLER MD Ot I21.4 NON-ST ELEVATION (NSTEMI) MYOCARDIAL INF 01/01/2017 JAILENE MILLER MD Ot I24.9 ACUTE ISCHEMIC HEART DISEASE, UNSPECIFIE 01/14/2017 JONATHAN MOTA, DARLENE Barker Ot R10.32 LEFT LOWER QUADRANT PAIN 01/31/2017 JAILENE MILLER MD Ot I21.4 NON-ST ELEVATION (NSTEMI) MYOCARDIAL INF 01/31/2017 JAILENE MILLER MD Ot I24.9 ACUTE ISCHEMIC HEART DISEASE, UNSPECIFIE 02/02/2017 JAILENE MILLER MD Ot I21.4 NON-ST ELEVATION (NSTEMI) MYOCARDIAL INF 02/02/2017 JAILENE MILLER MD Ot I24.9 ACUTE ISCHEMIC HEART DISEASE, UNSPECIFIE 05/18/2017 LEILA LEMUS Ot 427.9 CARDIAC DYSRHYTHMIA NOS 05/18/2017 TROY MOTA, RENE Mcneill Ot M54.6 PAIN IN THORACIC SPINE 05/18/2017 RENE SIMMONS MD Ot R20.2 PARESTHESIA OF SKIN 05/18/2017 JAILENE MILLER MD Ot I21.4 NON-ST ELEVATION (NSTEMI) MYOCARDIAL INF 05/18/2017 JAILENE MILLER MD Ot I24.9 ACUTE ISCHEMIC HEART DISEASE, UNSPECIFIE 05/18/2017 JONATHAN MOTA, DARLENE Barker Ot R10.32 LEFT LOWER QUADRANT PAIN 05/18/2017 JESENIA ORTA DOA C Ot 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, UNSPECIFIED 05/18/2017 YOU REDDY YESSICA C Ot Z01.818 ENCOUNTER FOR OTHER PREPROCEDURAL EXAMIN 05/19/2017 YOU DO YESSICA C Ot 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, UNSPECIFIED 05/19/2017 YOU DO YESSICA C Ot Z01.818 ENCOUNTER FOR OTHER PREPROCEDURAL EXAMIN 05/25/2017 YOU REDDY YESSICA C Ot 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 05/25/2017 JESENIA ORTA DOA C Ot E07.9 DISORDER OF THYROID, UNSPECIFIED 05/25/2017 JESENIA ORTA DOA C Ot E78.5 HYPERLIPIDEMIA, UNSPECIFIED 05/25/2017 JESENIA ORTA DOA C Ot F17.210 NICOTINE DEPENDENCE, CIGARETTES, UNCOMPL 05/25/2017 YOU REDDY YESSICA C Ot I10 ESSENTIAL (PRIMARY) HYPERTENSION 05/25/2017 YESSICA ORTA DO Ot I25.10 ATHSCL HEART DISEASE OF [place] CORONARY 05/25/2017 YESSICA ORTA DO Ot I25.2 OLD MYOCARDIAL INFARCTION 05/25/2017 YESSICA ORTA DO Ot Z79.899 OTHER CORRECTION (CURRENT) DRUG THERAPY 05/25/2017 YESSICA ORTA DO Ot Z95.5 PRESENCE OF CORONARY ANGIOPLASTY IMPLANT 05/26/2017 BEAR LOGAN Ot E78.2 MIXED HYPERLIPIDEMIA 05/26/2017 BEAR LOGAN Ot I10 ESSENTIAL (PRIMARY) HYPERTENSION 05/26/2017 BEAR LOGAN Ot I25.10 ATHSCL HEART DISEASE OF [place] CORONARY 05/26/2017 BEAR LOGAN Ot R07.89 OTHER CHEST PAIN 06/09/2017 BEAR LOGAN Ot E78.2 MIXED HYPERLIPIDEMIA 06/09/2017 BEAR LOGAN Ot I10 ESSENTIAL (PRIMARY) HYPERTENSION 06/09/2017 BEAR LOGAN Ot I25.10 ATHSCL HEART DISEASE OF [place] CORONARY 06/09/2017 BEAR LOGAN Ot R07.89 OTHER CHEST PAIN 08/17/2017 LEILA LEMUS Ot 427.9 CARDIAC DYSRHYTHMIA NOS 08/17/2017 TORY MOTA, RENE Mcneill Ot M54.6 PAIN IN THORACIC SPINE 08/17/2017 TROY MOTA, RENE Mcneill Ot R20.2 PARESTHESIA OF SKIN 08/17/2017 ANGELA MOTA, JAILENE Langford Ot I21.4 NON-ST ELEVATION (NSTEMI) MYOCARDIAL INF 08/17/2017 JAILENE MILLER MD Ot I24.9 ACUTE ISCHEMIC HEART DISEASE, UNSPECIFIE 08/17/2017 JONATHAN MOTA, DARLENE Barker Ot R10.32 LEFT LOWER QUADRANT PAIN 08/17/2017 BEAR LOGAN Ot E78.2 MIXED HYPERLIPIDEMIA 08/17/2017 BEAR LOGAN Ot I10 ESSENTIAL (PRIMARY) HYPERTENSION 08/17/2017 BEAR LOGAN Ot I25.10 ATHSCL HEART DISEASE OF [place] CORONARY 08/17/2017 BEAR LOGAN Ot R07.89 OTHER CHEST PAIN 10/21/2017 AKHIL PALACIOS DO Ot M54.16 RADICULOPATHY, LUMBAR REGION 10/22/2017 AKHIL PALACIOS DO Ot M54.16 RADICULOPATHY, LUMBAR REGION 12/24/2017 GENE, KETANHOMERMARCOS S MINING DETAIL DRAFTSPERSON Ot G89.4 CHRONIC PAIN SYNDROME 12/24/2017 GENE, JICKIE S MINING DETAIL DRAFTSPERSON Ot M54.16 RADICULOPATHY, LUMBAR REGION 12/27/2017 GENE, JICKIE S MINING DETAIL DRAFTSPERSON Ot G89.4 CHRONIC PAIN SYNDROME 12/27/2017 GENE, JICKIE S MINING DETAIL DRAFTSPERSON Ot M54.16 RADICULOPATHY, LUMBAR REGION 12/30/2017 GENE, JICKIE S MINING DETAIL DRAFTSPERSON Ot G89.4 CHRONIC PAIN SYNDROME 12/30/2017 GENE, JICKIE S MINING DETAIL DRAFTSPERSON Ot M54.16 RADICULOPATHY, LUMBAR REGION 01/11/2018 GENE, JICKMARCOS S MINING DETAIL DRAFTSPERSON Ot G89.4 CHRONIC PAIN SYNDROME 01/11/2018 GENE, JICKIE S MINING DETAIL DRAFTSPERSON Ot M54.16 RADICULOPATHY, LUMBAR REGION 01/12/2018 KEENAN MOTA, AKHIL Benitez Ot Z01.818 ENCOUNTER FOR OTHER PREPROCEDURAL EXAMIN 01/13/2018 AKHIL HUSSEIN MD Ot Z01.818 ENCOUNTER FOR OTHER PREPROCEDURAL EXAMIN 01/13/2018 LEILA LEMUS PRINT GRAPHIC DESIGNER Ot 427.9 CARDIAC DYSRHYTHMIA NOS 01/13/2018 RENE SIMMONS MD Ot M54.6 PAIN IN THORACIC SPINE 01/13/2018 RENE SIMMONS MD Ot R20.2 PARESTHESIA OF SKIN 01/13/2018 JAILENE MILLER MD Ot I21.4 NON-ST ELEVATION (NSTEMI) MYOCARDIAL INF 01/13/2018 JAILENE MILLER MD Ot I24.9 ACUTE ISCHEMIC HEART DISEASE, UNSPECIFIE 01/13/2018 JONATHAN MOTA, DARLENE Barker Ot R10.32 LEFT LOWER QUADRANT PAIN 01/13/2018 BEAR LOGAN Ot E78.2 MIXED HYPERLIPIDEMIA 01/13/2018 BEAR LOGAN Ot I10 ESSENTIAL (PRIMARY) HYPERTENSION 01/13/2018 BEAR LOGAN Ot I25.10 ATHSCL HEART DISEASE OF [place] CORONARY 01/13/2018 BEAR LOGAN Ot R07.89 OTHER CHEST PAIN 01/13/2018 CORTES MILLS APRN Ot G89.4 CHRONIC PAIN SYNDROME 01/13/2018 CORTES MILLS APRN Ot M54.16 RADICULOPATHY, LUMBAR REGION Procedures Code Description [place] [address] X-RAY EXAM OF KNEE, 3 12/26/2014 47540 DRUG SCREEN CLASS LIST A 12/26/2014 [id number] DILATION OF 1 COR ART WITH DRUG-ELUT INT 11/17/2016 [id number] MEASURE OF CARDIAC SAMPL PRESSURE, L H 11/17/2016 [id number] FLUOROSCOPY OF MULT COR ART USING L OSM 11/17/2016 [id number] FLUOROSCOPY OF LEFT HEART USING LOW OSMO 11/17/2016 [id number] FLUOROSCOPY OF THORACIC AORTA USING LOW 11/17/2016 Results Test Result Range DRUG ABUSE PANEL - 12/26/14 00:00 ALCOHOL NEGATIVE AMPHETAMINES NEGATIVE BARBITURATES POSITIVE BENZODIAZEPINES NEGATIVE COCAINE NEGATIVE MARIJUANA METABOLITES NEGATIVE METHADONE NEGATIVE METHAQUALONE NEGATIVE NOTE See Below OPIATES NEGATIVE PHENCYCLIDINE NEGATIVE PROPOXYPHENE NEGATIVE NOTATION: SEE NOTE Lipid Panel - 07/21/16 08:55 C/HDL 3.8 3.7-6.7 Cholesterol 159 mg/dL 100-240 HDL 42 mg/dL 30-85 LDL-Calculated 89 mg/dL 0-100 Trig 141 mg/dL 35-160 VLDL 28 mg/dL 0-42 Lipase - 10/02/16 16:11 Lipase 22 U/L 7-59 Urinalysis - 10/02/16 16:11 Icotest N/A Negative Urine Volume Urine Volume Sufficient (10mL) Urine-Appearance Hazy Clear Urine-Bacteria 1+ Urine-Bilirubin Negative Negative Urine-Blood Trace-intact Negative Urine-Color Yellow Colorless-Lt. Yellow Urine-Epithelial Cells 10-20/HPF Urine-Glucose Negative Negative Urine-Ketones Negative Negative Urine-Leukocytes Negative Negative Urine-Mucus 1+ Urine-Nitrite Negative Negative Urine-Other Urine Saved if Culture Needed (48hrs from time of collection) Urine-pH 6.0 5-8.5 Urine-Protein Negative Negative Urine-RBC 0-2/HPF Urine-Specific [place] 1.015 1.000-1.030 Urine-WBC Few/HPF Urobilinogen 0.2 E.U./dL 0.2-1.0 Thyroid Stimulating Hormone - 10/22/16 11:12 TSH 2.83 mIU/mL 0.32-5.00 Complete blood count (CBC) with automated white blood cell (WBC) differential - 11/16/16 19:23 Blood leukocytes automated count (number/volume) 9.1 10*3/uL 4.3-11.0 Blood erythrocytes automated count (number/volume) 3.99 10*6/uL 4.35-5.85 Venous blood hemoglobin measurement (mass/volume) 12.6 g/dL 11.5-16.0 Blood hematocrit (volume fraction) 37 % 35-52 Automated erythrocyte mean corpuscular volume 92 [foz_us] 80-99 Automated erythrocyte mean corpuscular hemoglobin (mass per erythrocyte) 32 pg 25-34 Automated erythrocyte mean corpuscular hemoglobin concentration measurement ( mass/volume) 34 g/dL 32-36 Automated erythrocyte distribution width ratio 15.0 % 10.0-14.5 Automated blood platelet count (count/volume) 372 10*3/uL 130-400 Automated blood platelet mean volume measurement 10.2 [foz_us] 7.4-10.4 Automated blood neutrophils/100 leukocytes 50 % 42-75 Automated blood lymphocytes/100 leukocytes 40 % 12-44 Blood monocytes/100 leukocytes 8 % 0-12 Automated blood eosinophils/100 leukocytes 3 % 0-10 Automated blood basophils/100 leukocytes 0 % 0-10 Blood neutrophils automated count (number/volume) 4.5 10*3 1.8-7.8 Blood lymphocytes automated count (number/volume) 3.6 10*3 1.0-4.0 Blood monocytes automated count (number/volume) 0.7 10*3 0.0-1.0 Automated eosinophil count 0.3 10*3/uL 0.0-0.3 Automated blood basophil count (count/volume) 0.0 10*3/uL 0.0-0.1 PT panel in platelet poor plasma by coagulation assay - 11/16/16 19:23 Prothrombin time (PT) in platelet poor plasma by coagulation assay 12.0 s 12.2-14.7 INR in platelet poor plasma or blood by coagulation assay 0.9 0.8-1.4 Activated partial thromboplastin time (aPTT) in platelet poor plasma bycoagulation assay - 11/16/16 19:23 Activated partial thromboplastin time (aPTT) in platelet poor plasma bycoagulation assay 24 s 24-35 Comprehensive metabolic panel - 11/16/16 19:23 Serum or plasma sodium measurement (moles/volume) 136 mmol/L 135-145 Serum or plasma potassium measurement (moles/volume) 4.0 mmol/L 3.6-5.0 Serum or plasma chloride measurement (moles/volume) 107 mmol/L 98-107 Carbon dioxide 18 mmol/L 21-32 Serum or plasma anion gap determination (moles/volume) 11 mmol/L 5-14 Serum or plasma urea nitrogen measurement (mass/volume) 8 mg/dL 7-18 Serum or plasma creatinine measurement (mass/volume) 0.71 mg/dL 0.60-1.30 Serum or plasma urea nitrogen/creatinine mass ratio 11 NRG Serum or plasma creatinine measurement with calculation of estimated glomerular filtration rate > NRG Serum or plasma glucose measurement (mass/volume) 105 mg/dL 70-105 Serum or plasma calcium measurement (mass/volume) 8.7 mg/dL 8.5-10.1 Serum or plasma total bilirubin measurement (mass/volume) 0.1 mg/dL 0.1-1.0 Serum or plasma alkaline phosphatase measurement (enzymatic activity/volume) 156 U/L 40-136 Serum or plasma aspartate aminotransferase measurement (enzymatic activity/ volume) 15 U/L 5-34 Serum or plasma alanine aminotransferase measurement (enzymatic activity/volume ) 14 U/L 0-55 Serum or plasma protein measurement (mass/volume) 6.8 g/dL 6.4-8.2 Serum or plasma albumin measurement (mass/volume) 3.8 g/dL 3.2-4.5 Magnesium - 11/16/16 19:23 Magnesium 2.2 mg/dL 1.8-2.4 Serum or plasma troponin i.cardiac measurement (mass/volume) - 11/16/16 19:23 Serum or plasma troponin i.cardiac measurement (mass/volume) < ng/ mL <0.30 Myoglobin, serum - 11/16/16 19:23 Myoglobin, serum 17.7 ng/mL 10.0-92.0 Fibrin D-dimer FEU measurement in platelet poor plasma (mass/volume) - 19:23 Fibrin D-dimer FEU measurement in platelet poor plasma (mass/volume) 0.59 ug/mL 0.00-0.49 THYROID STIMULATING HORMONE - 11/16/16 19:23 THYROID STIMULATING HORMONE 4.98 u[iU]/mL 0.35-4.94 Serum or plasma troponin i.cardiac measurement (mass/volume) - 11/17/16 02:25 Serum or plasma troponin i.cardiac measurement (mass/volume) 2.96 ng /mL <0.30 Myoglobin, serum - 11/17/16 02:25 Myoglobin, serum 574.7 ng/mL 10.0-92.0 Complete blood count (CBC) with automated white blood cell (WBC) differential - 11/17/16 05:00 Blood leukocytes automated count (number/volume) 7.8 10*3/uL 4.3-11.0 Blood erythrocytes automated count (number/volume) 3.61 10*6/uL 4.35-5.85 Venous blood hemoglobin measurement (mass/volume) 11.3 g/dL 11.5-16.0 Blood hematocrit (volume fraction) 34 % 35-52 Automated erythrocyte mean corpuscular volume 94 [foz_us] 80-99 Automated erythrocyte mean corpuscular hemoglobin (mass per erythrocyte) 31 pg 25-34 Automated erythrocyte mean corpuscular hemoglobin concentration measurement ( mass/volume) 33 g/dL 32-36 Automated erythrocyte distribution width ratio 15.2 % 10.0-14.5 Automated blood platelet count (count/volume) 327 10*3/uL 130-400 Automated blood platelet mean volume measurement 10.1 [foz_us] 7.4-10.4 Automated blood neutrophils/100 leukocytes 44 % 42-75 Automated blood lymphocytes/100 leukocytes 45 % 12-44 Blood monocytes/100 leukocytes 9 % 0-12 Automated blood eosinophils/100 leukocytes 3 % 0-10 Automated blood basophils/100 leukocytes 0 % 0-10 Blood neutrophils automated count (number/volume) 3.4 10*3 1.8-7.8 Blood lymphocytes automated count (number/volume) 3.5 10*3 1.0-4.0 Blood monocytes automated count (number/volume) 0.7 10*3 0.0-1.0 Automated eosinophil count 0.2 10*3/uL 0.0-0.3 Automated blood basophil count (count/volume) 0.0 10*3/uL 0.0-0.1 Comprehensive metabolic panel - 11/17/16 05:00 Serum or plasma sodium measurement (moles/volume) 138 mmol/L 135-145 Serum or plasma potassium measurement (moles/volume) 3.9 mmol/L 3.6-5.0 Serum or plasma chloride measurement (moles/volume) 111 mmol/L 98-107 Carbon dioxide 19 mmol/L 21-32 Serum or plasma anion gap determination (moles/volume) 8 mmol/L 5-14 Serum or plasma urea nitrogen measurement (mass/volume) 6 mg/dL 7-18 Serum or plasma creatinine measurement (mass/volume) 0.66 mg/dL 0.60-1.30 Serum or plasma urea nitrogen/creatinine mass ratio 9 NRG Serum or plasma creatinine measurement with calculation of estimated glomerular filtration rate > NRG Serum or plasma glucose measurement (mass/volume) 107 mg/dL 70-105 Serum or plasma calcium measurement (mass/volume) 8.1 mg/dL 8.5-10.1 Serum or plasma total bilirubin measurement (mass/volume) < mg/dL 0.1-1.0 Serum or plasma alkaline phosphatase measurement (enzymatic activity/volume) 134 U/L 40-136 Serum or plasma aspartate aminotransferase measurement (enzymatic activity/ volume) 35 U/L 5-34 Serum or plasma alanine aminotransferase measurement (enzymatic activity/volume ) 15 U/L 0-55 Serum or plasma protein measurement (mass/volume) 5.7 g/dL 6.4-8.2 Serum or plasma albumin measurement (mass/volume) 3.2 g/dL 3.2-4.5 Lipid 1996 panel - 11/17/16 05:00 Serum or plasma triglyceride measurement (mass/volume) 209 mg/dL <150 Serum or plasma cholesterol measurement (mass/volume) 185 mg/dL < 200 Serum or plasma cholesterol in HDL measurement (mass/volume) 37 mg/ dL 40-60 Cholesterol in LDL [mass/volume] in serum or plasma by direct assay 81 mg/dL 1-129 Serum or plasma cholesterol in VLDL measurement (mass/volume) 42 mg/ dL 5-40 Serum or plasma C reactive protein measurement (mass/volume) - 11/17/16 05:00 Serum or plasma C reactive protein measurement (mass/volume) 1.07 mg /dL 0.00-0.50 Serum or plasma lithium measurement (moles/volume) - 11/17/16 05:00 BNP level 55.1 pg/mL <100.0 Serum or plasma rheumatoid factor measurement (units/volume) - 11/17/16 13:05 Serum or plasma rheumatoid factor measurement (units/volume) NEGATIVE NEGATIVE ANTI-NUCLEAR AB (LUNA) ANALYZER - 11/17/16 13:05 Screening antinuclear antibody (LUNA) assay by enzyme immunoassay <1: 80 <1:80 Serum classic neutrophil cytoplasmic antibody assay (units/volume) - 11/17/16 13:05 Antineutrophil cytoplasmic antibody (ANCA) assay < <1: 20 Antineutrophil cytoplasmic antibody (ANCA) pattern Not Indicated NRG Serum angiotensin converting enzyme (KHANH) measurement - 11/17/16 13:05 Serum angiotensin converting enzyme (KHANH) measurement 34 U/L 9-67 Urine drug screening test - 11/17/16 14:45 Urine phencyclidine detection by screening method NEGATIVE NEGATIVE Urine benzodiazepines detection by screening method NEGATIVE NEGATIVE Urine cocaine detection NEGATIVE NEGATIVE Urine amphetamines detection by screening method NEGATIVE NEGATIVE Urine methamphetamine detection by screening method NEGATIVE NEGATIVE Urine cannabinoids detection by screening method NEGATIVE NEGATIVE Urine opiates detection by screening method POSITIVE NEGATIVE Urine barbiturates detection POSITIVE NEGATIVE Screening urine tricyclic antidepressants detection NEGATIVE NEGATIVE Urine methadone detection by screening method NEGATIVE NEGATIVE Urine oxycodone detection NEGATIVE NEGATIVE Urine propoxyphene detection NEGATIVE NEGATIVE Automated blood complete blood count (hemogram) panel - 11/18/16 03:55 Blood leukocytes automated count (number/volume) 10.7 10*3/uL 4.3-11.0 Blood erythrocytes automated count (number/volume) 3.52 10*6/uL 4.35-5.85 Venous blood hemoglobin measurement (mass/volume) 10.8 g/dL 11.5-16.0 Blood hematocrit (volume fraction) 33 % 35-52 Automated erythrocyte mean corpuscular volume 93 [foz_us] 80-99 Automated erythrocyte mean corpuscular hemoglobin (mass per erythrocyte) 31 pg 25-34 Automated erythrocyte mean corpuscular hemoglobin concentration measurement ( mass/volume) 33 g/dL 32-36 Automated erythrocyte distribution width ratio 14.9 % 10.0-14.5 Automated blood platelet count (count/volume) 315 10*3/uL 130-400 Automated blood platelet mean volume measurement 10.9 [foz_us] 7.4-10.4 Comprehensive metabolic panel - 11/18/16 03:55 Serum or plasma sodium measurement (moles/volume) 136 mmol/L 135-145 Serum or plasma potassium measurement (moles/volume) 3.9 mmol/L 3.6-5.0 Serum or plasma chloride measurement (moles/volume) 110 mmol/L 98-107 Carbon dioxide 18 mmol/L 21-32 Serum or plasma anion gap determination (moles/volume) 8 mmol/L 5-14 Serum or plasma urea nitrogen measurement (mass/volume) 8 mg/dL 7-18 Serum or plasma creatinine measurement (mass/volume) 0.66 mg/dL 0.60-1.30 Serum or plasma urea nitrogen/creatinine mass ratio 12 NRG Serum or plasma creatinine measurement with calculation of estimated glomerular filtration rate > NRG Serum or plasma glucose measurement (mass/volume) 163 mg/dL 70-105 Serum or plasma calcium measurement (mass/volume) 8.2 mg/dL 8.5-10.1 Serum or plasma total bilirubin measurement (mass/volume) 0.2 mg/dL 0.1-1.0 Serum or plasma alkaline phosphatase measurement (enzymatic activity/volume) 132 U/L 40-136 Serum or plasma aspartate aminotransferase measurement (enzymatic activity/ volume) 75 U/L 5-34 Serum or plasma alanine aminotransferase measurement (enzymatic activity/volume ) 25 U/L 0-55 Serum or plasma protein measurement (mass/volume) 5.8 g/dL 6.4-8.2 Serum or plasma albumin measurement (mass/volume) 3.3 g/dL 3.2-4.5 Serum or plasma phosphate measurement (mass/volume) - 11/18/16 03:55 Serum or plasma phosphate measurement (mass/volume) 1.7 mg/dL 2.3-4.7 Magnesium - 11/18/16 03:55 Magnesium 2.1 mg/dL 1.8-2.4 Serum or plasma troponin i.cardiac measurement (mass/volume) - 11/18/16 03:55 Serum or plasma troponin i.cardiac measurement (mass/volume) 16.32 ng/mL <0.30 TSH+Free T4 - 02/03/17 13:08 TSH 0.667 uIU/mL 0.450-4.500 T4,Free(Direct) 1.45 ng/dL 0.82-1.77 Lipid Panel - 02/03/17 13:08 Cholesterol, Total 155 mg/dL 100-199 Triglycerides 157 mg/dL 0-149 HDL Cholesterol 57 mg/dL >39 VLDL Cholesterol Momo 31 mg/dL 5-40 LDL Cholesterol Calc 67 mg/dL 0-99 Hemoglobin A1c - 02/03/17 13:08 Hemoglobin A1c 5.9 % 4.8-5.6 Methicillin resistant Staphylococcus aureus (MRSA) screening culture - 12:45 Methicillin resistant Staphylococcus aureus (MRSA) screening culture NEG NRG Encounters ACCT No. Visit Date/Time Discharge Status Pt. Type Provider Facility Loc./Unit Complaint [id number] 01/13/2018 13:11:00 01/13/2018 23:59:59 CLS Outpatient AKHIL PALACIOS DO [facility] CARD LUMBAR RADICULOPATHY M54.16 [id number] 01/12/2018 05:41:00 01/12/2018 09:32:00 DIS Outpatient AKHIL HUSSEIN MD [facility] PREOP LT SHOULDER GLENOID LABRUM TEAR [id number] 01/11/2018 13:44:00 01/11/2018 23:59:59 CLS Outpatient CORTES MILLS APRN [facility] REHAB LUMBAR RADICULOPATHY;CHRONIC PAIN SYNDROME [id number] 10/21/2017 13:34:00 10/21/2017 14:32:00 DIS Outpatient AKHIL PALACIOS DO [facility] CARD M54.16 LUMBAR RADICULOPATHY [id number] 08/16/2017 08:58:00 08/16/2017 23:59:59 CLS Preadmit DUY MOTA, ODIN Bailey [facility] RAD LUMBAR RADICULOPATHY [id number] 05/25/2017 06:00:00 05/25/2017 10:35:00 DIS Outpatient YESSICA ORTA DO [facility] SDC COLE III [id number] 05/19/2017 12:17:00 05/19/2017 23:59:59 CLS Outpatient BEAR LOGAN [facility] CARD CAD I25.10 [id number] 05/18/2017 11:51:00 05/18/2017 13:35:00 DIS Outpatient YESSICA ORTA DO [facility] PREOP WIDE EXCISION VULVAR LESION, COLPOSCOPY [id number] 01/01/2017 12:46:00 01/01/2017 23:59:59 CLS Outpatient JONATHAN MOTA, DARLENE Barker [facility] RAD R10.32 (LEFT LQP) [id number] 12/08/2016 14:39:00 12/08/2016 23:59:59 CLS Outpatient JAILENE MILLER MD [facility] LAB I21.4,I24.9 [id number] 11/17/2016 08:22:00 11/18/2016 13:10:00 DIS Inpatient RAH HART MD [facility] ICU CP,HTN [id number] 10/14/2016 16:26:00 10/14/2016 23:59:59 CLS Preadmit MARY ALMAZAN MD [facility] REHAB LUMBAGO; CERVICALGIA [id number] 06/12/2016 10:21:00 06/12/2016 23:59:59 CLS Preadmit RENE SIMMONS MD [facility] REHAB BACK SPASMS [id number] 03/07/2016 15:29:00 03/07/2016 23:59:59 CLS Outpatient RENE SIMMONS MD [facility] RAD R ARM/HAND PARESTHESIS,R THORACIC PAIN [id number] 02/28/2016 10:17:00 02/28/2016 13:40:00 DIS Emergency RASHIDA MOTA, LIU Kothari [facility] ER UPPER BACK PAIN [id number] 04/25/2013 13:19:00 04/25/2013 23:59:59 CLS Outpatient LEILA LEMUS PRINT GRAPHIC DESIGNER [facility] CARD PALPITATIONS [id number] 01/19/2018 09:45:00 PEN Preadmit KEENAN MOTA, AKHIL Benitez [facility] SDC LT SHOULDER GLENOID LABRUM TEAR [id number] 02/28/2016 10:16:00 Document Registration [id number] 11/15/2014 04:40:00 Document Registration [id number] 01/07/2018 11:20:00 01/07/2018 23:59:59 CLS Outpatient DUY MOTA[facility] [id number] 12/26/2014 15:49:00 12/26/2014 15:49:00 DIS Outpatient MAC PELLETIER [facility] [id number] 07/29/2014 00:00:00 Document Registration [id number] 12/27/2014 03:34:33 ACT Document Registration [id number] 10/22/2016 11:00:00 10/22/2016 23:59:00 DIS Outpatient Kimberley Stuart [id number] 10/02/2016 15:30:00 10/02/2016 18:01:00 DIS Outpatient Patsy [facility] [id number] 07/21/2016 08:48:00 07/21/2016 23:59:00 DIS Outpatient Kimberley Stuart [id number] 10/02/2016 16:14:21 Document Registration [id number] 02/04/2017 10:11:00 Document Registration
[2018-01-19] MEDS ORDERED: ROPIVACAINE 5MG/ML 30ML VIAL ONE (08:25)
[2018-01-19] MEDS ORDERED: MIDAZOLAM 2 MG/2 ML (VERSED) VIAL ONE (08:25)
[2018-01-19] MEDS ORDERED: fentaNYL INJECTION 100 MCG/2 ML AMP ONE ×2 (08:27→09:11)
[2018-01-19] MEDS ORDERED: morphine PF (DURAMORPH) 10 MG/10 ML AMP ONE (08:33)
[2018-01-19] MEDS ORDERED: BUPIVACAINE 0.25% 30 ML (SENSORCAINE) VIAL ONE (08:34)
[2018-01-19] MEDS ORDERED: ceFAZolin INJECTION 1,000 MG in NS (IVPB) 50 ML IV ONE (08:45)
[2018-01-19] MEDS ORDERED: LACTATED RINGERS 1,000 ML IV PRN (08:45)
[2018-01-19] MEDS ORDERED: SEVOFLURANE (ULTANE) 15 ML INHAL SOLN ONE ×3 (09:02→09:39)
[2018-01-19] MEDS ORDERED: ROCURONIUM 10 MG/ML 5 ML SYRINGE IV ONE (09:02)
[2018-01-19] MEDS ORDERED: proPOfol 200 MG/20 ML (DIPRIVAN) VIAL IV ONE (09:02)
[2018-01-19] MEDS ORDERED: ONDANSETRON 4 MG/2 ML (SDV) Z0FRAN ONE (09:02)
[2018-01-19] MEDS ORDERED: DEXAMETHASONE 10 MG/ML (DECADRON) 1 ML VIAL ONE (09:02)
[2018-01-19] MEDS ORDERED: LIDOCAINE PF 2% 5 ML (XYLOCAINE) VIAL ONE (09:02)
--- NOTE | 2018-01-19 09:18 | Progress Note-Pre Operative ---
Pre-Operative Progress Note H&P Reviewed The H&P was reviewed, patient examined and no changes noted. Date Seen by Provider: January 19, 2018 Time Seen by Provider: 09:18 Date H&P Reviewed: January 19, 2018 Time H&P Reviewed: 09:18 Pre-Operative Diagnosis: left rotator cuff and SLAP tears AKHIL HUSSEIN MD January 19, 2018 09:18
--- NOTE | 2018-01-19 09:18 | Anesthesia-Peripheral Nerve Bl ---
Procedure Start/Stop Time Date of Procedure: January 19, 2018 Start Time: 08:50 Referring Physician: Mohan Preprocedural Diagnosis: labrum lesion, shoulder pain Brief History ASA 3 Pt consented for Left shoulder ISB for post op pain control. Left side prepped and position after time out. Versed 2 mg and 100 mcg Fentanyl given for sedation. O2 per NC with monitors applied. Brachial plexus identified under U/S guidance. Ropiv 0.5% injected in 5cc increments for a total of 25CC with negative aspiration of heme. Block performed without complications. VSS Stop Time: 09:05 Postprocedural Diagnosis: labrum lesion Peripheral Nerve Block Peripheral Nerve Blockade Risk/Benefits/Alternatives discussed, including IV injection leading to complications or seizures, nerve irritation or damage, pneumothorax, total spinal anesthesia, injection, and/or bleeding. Specifically requested for management of pain by: Narrative Injection was made incrementally with constant monitoring. Events Patient Conditon Post Peripheral Nerve Block Post Peripheral Nerve Block Vital Signs: Blood Pressure: Systolic Diastolic Heart Rate SIERRA HEAD CRNA January 19, 2018 09:18
--- NOTE | 2018-01-19 09:19 | Progress Note-Post Operative ---
Post-Operative Progess Note Surgeon (s)/Facilities Management Executive (s) Surgeon AKHIL HUSSEIN MD Facilities Management Executive: Lisandro Ramirez Pre-Operative Diagnosis left rotator cuff and SLAP tears Post-Operative Diagnosis left shoulder labral tear and SLAP tear Procedure & Operative Findings Date of Procedure 01/19/18 Procedure Performed/Findings left shoulder arthroscopic labral debridement and biceps tenodesis Anesthesia Type GETA plus interscalene Estimated Blood Loss Estimated blood loss (mL): 50 ml Specimens/Packing Specimens Removed none Packing: none AKIHL HUSSEIN MD January 19, 2018 09:19
[2018-01-19] MEDS ORDERED: HYDROmorphone (DILAUDID) 4 MG TAB PO PRN (09:30)
[2018-01-19] MEDS ORDERED: NEOSTIGMINE 1 MG/ML 5 ML SYRINGE ONE (09:54)
[2018-01-19] MEDS ORDERED: GLYCOPYRROLATE 0.2 MG/ML (ROBINUL) 2 ML VIAL ONE ×2 (09:54)
[2018-01-19] MEDS ORDERED: HYDROmorphone 1 MG/ML (DILAUDID) 1 ML SYRINGE IV PRN (10:30)
[2018-01-19] MEDS ORDERED: ONDANSETRON 4 MG/2 ML (SDV) Z0FRAN IVP PRN (10:30)
[2018-01-19] MEDS ORDERED: fentaNYL INJECTION 100 MCG/2 ML AMP IVP PRN (10:30)
[2018-01-19] MEDS ORDERED: MEPERIDINE (DEMEROL) INJ 50 MG/ML IVP PRN (10:30)
[2018-01-19 11:15] VITALS: BP 148/100
[2018-01-19] MEDS ORDERED: HYDR4TAB PO (11:25)
[2018-01-19 11:45] VITALS: BP 155/95
[2018-01-19 12:15] VITALS: BP 180/97
--- NOTE | 2018-01-19 20:40 | OPERATIVE REPORT ---
DATE OF SERVICE: 01/19/2018 PREOPERATIVE DIAGNOSES: 1. Left shoulder SLAP tear. 2. Left shoulder rotator cuff tear. POSTOPERATIVE DIAGNOSES: 1. Left shoulder SLAP tear. 2. Left shoulder labral tear. PROCEDURE: 1. Left shoulder biceps tenodesis. 2. Left shoulder arthroscopic labral debridement. SURGEON: Akhil Hussein MD AUTOMOBILE APPRAISER: ROSALVA Mccann, who assisted throughout the procedure and closed the incisions. ANESTHESIA: General endotracheal plus interscalene nerve block by Panfilo Schneider. ESTIMATED BLOOD LOSS: Minimal. DRAINS: None. COMPLICATIONS: None. POSTOPERATIVE PLAN: Sling wear and passive range of motion for 2 weeks. The patient was transported to the recovery room awake and in stable condition. STATEMENT OF MEDICAL NECESSITY: The patient is a 47-year-old female with complaints of left shoulder pain, worse with overhead activities. She has undergone treatment with injections, anti-inflammatories, activity modifications without relief. She reported functional impairment. She had a positive Calhoun's test, pain with apprehension. It was felt that she likely had a SLAP tear and a questionable rotator cuff tear. Due to functional impairment and failure to improve with conservative measures, the patient elected to proceed with surgical intervention. Examination under anesthesia revealed forward elevation of 170 degrees, external rotation of 85 degrees, internal rotation of 70 degrees. Translation testing was symmetric. Arthroscopic findings demonstrated intact rotator cuff throughout. No significant glenoid or humeral head articular wear. There was a type 2 SLAP tear with an anterior labral flap at the 11 o'clock position. DESCRIPTION OF PROCEDURE: After risks and benefits of procedure were discussed and questions were answered and informed consent was signed and placed on the chart, the operative site was confirmed in the preoperative holding area initialed by the surgeon. The patient was then transported to the operating room, and after adequate levels of regional plus general endotracheal anesthetic was obtained, a timeout was called confirming the operative site. An examination under anesthesia was performed. The above findings noted. The left shoulder and upper extremity were prepped and draped in the usual sterile fashion. The shoulder joint was injected with 20 mL of fluid and a standard posterior portal was placed under direct visualization. An anterior portal was created in the interval between the biceps, subscapularis and glenoid. The biceps anchor was released and the stump was debrided with a shaver. The anterior labral flap was debrided with a shaver as well. The shoulder joint was copiously irrigated and the portal sites were closed with 4-0 nylon in simple interrupted fashion. A longitudinal incision was then made just distal to the pectoralis insertion on the upper medial arm. The underlying soft tissues were carefully dissected. The long head of the biceps was identified and pulled into the wound. This was then whipstitched from the musculotendinous junction extending 3 cm proximally. The excessive tendon was excised. A unicortical drill hole was then made just distal to the pectoralis insertion in the bicipital groove. The suture ends were passed through the biceps button which was then passed into the canal. This was flipped and this pulled the tendon to the bony surface. This was then oversewn on itself and tied. The wound was copiously irrigated. The elbows and shoulder were taken through range of motion. The repair was found to be stable. Two 2-0 Vicryl was used to reapproximate subcutaneous tissue. The skin was closed with 4-0 nylon in a running alternating horizontal mattress fashion. Incisions were infiltrated with plain Marcaine. The shoulder joint was injected with Duramorph. A soft dressing and sling were applied and the patient was transported to the recovery room awake in stable condition. Job ID: [id number] DocumentID: [id number] Dictated Date: 01/19/2018 10:13:31 Prehemmer Date: 01/19/2018 16:09:16 Dictated By: AKHIL HUSSEIN MD
== END 2018-01-19 12:15 | disposition home or self-care (01) ==
LOC: SDC 08:04
PROVIDERS: ATTEND Orthopaedic Surgery
DX: S43.432A Superior glenoid labrum lesion of left shoulder, initial encounter (principal); F41.9 Anxiety disorder, unspecified; F32.9 Major depressive disorder, single episode, unspecified; E78.5 Hyperlipidemia, unspecified; I10 Essential (primary) hypertension; E03.9 Hypothyroidism, unspecified; I25.10 Atherosclerotic heart disease of native coronary artery without angina pectoris; G43.909 Migraine, unspecified, not intractable, without status migrainosus; M79.7 Fibromyalgia; M41.9 Scoliosis, unspecified; F17.210 Nicotine dependence, cigarettes, uncomplicated; Z79.899 Other long term (current) drug therapy; Z79.82 Long term (current) use of aspirin; Z85.820 Personal history of malignant melanoma of skin; Z88.2 Allergy status to sulfonamides; Z88.5 Allergy status to narcotic agent; Z88.6 Allergy status to analgesic agent; Z95.5 Presence of coronary angioplasty implant and graft
CPT/HCPCS: 87081

== ENCOUNTER → 2018-03-04 | Outpatient (CLI) | payer MEDICAID ==
[~2018-03-04] MED LIST changes: +HYDR4TAB PO
--- NOTE | 2018-03-04 14:00 | Diagnostic Imaging Report ---
INDICATION: Chronic low back pain. TIME OF EXAMINATION: 02:04 p.m. FINDINGS: Curvature and alignment of the lumbar spine is normal. Vertebral body heights are maintained. Disc spaces are preserved. Flexion and extension lateral views of the lumbar spine were also obtained. No abnormal motion during flexion or extension maneuvers is identified. IMPRESSION: Unremarkable appearance of the lumbar spine. No acute features seen. No abnormal motion is detected during flexion or extension maneuvers. Dictated by: Dictated on workstation # [id number]
== END ==
LOC: RAD 13:27
PROVIDERS: ATTEND Pain Medicine Interventional Pain Medicine
DX: M54.16 Radiculopathy, lumbar region (principal)
CPT/HCPCS: 72110

== ENCOUNTER → 2018-06-10 | Outpatient (CLI) | payer MEDICAID ==
[~2018-06-10] MED LIST changes: -LOSA100T28 PO; +LOSA100T8 PO; -LOSA50TA36 PO; +LOSA50TA7 PO
== END ==
LOC: RAD 11:02
PROVIDERS: ATTEND Pain Medicine Interventional Pain Medicine
DX: M47.22 Other spondylosis with radiculopathy, cervical region (principal); Z53.8 Procedure and treatment not carried out for other reasons

== ENCOUNTER → 2018-06-15 | Outpatient (CLI) | payer MEDICAID ==
--- NOTE | 2018-06-15 12:45 | Diagnostic Imaging Report ---
PROCEDURE: MRI lumbar spine. TECHNIQUE: Multiplanar, multisequence MRI of the lumbar spine was performed without contrast. INDICATION: Chronic low back pain. FINDINGS: Lumbar spinal curvature and alignment are within normal limits apart from slight right convexity curvature of the lumbar spine. Vertebral body heights and disc spaces are maintained. There is mild annular bulging at the L4-5 disc with flattening of the ventral thecal sac without significant stenosis. At L5-S1, there is also diffuse disc bulging and small central disc protrusion without significant stenosis. Conus medullaris has a normal appearance at the L1 level. There is no evidence of bone marrow signal abnormality to indicate a fracture. There may be a dominant cyst in the left ovary, which is partially included on the exam. IMPRESSION: Minor degenerative changes in the lower lumbar discs without evidence of significant stenosis or fracture. Dictated by: Dictated on workstation # [id number]
== END ==
LOC: RAD 11:20
PROVIDERS: ATTEND Pain Medicine Interventional Pain Medicine
DX: M47.26 Other spondylosis with radiculopathy, lumbar region (principal)
CPT/HCPCS: 72148

== ENCOUNTER → 2019-03-27 | Outpatient (CLI) | payer MEDICAID ==
[~2019-03-27] MED LIST changes: +GABA800T10 PO; -GABA800T2 PO; +LOSA100T57 PO; -LOSA100T8 PO; +LOSA50TA63 PO; -LOSA50TA7 PO
--- NOTE | 2019-03-27 16:19 | Diagnostic Imaging Report ---
PROCEDURE: MR imaging cervical spine without contrast. TECHNIQUE: Multiplanar, multisequence MR imaging of the cervical spine was performed without contrast. INDICATION: Neck pain. COMPARISON: Correlation is made with prior MRI of the cervical spine from 03/07/2016. FINDINGS: Curvature and alignment of the cervical spine is normal. The marrow signal intensity is normal. No geographic marrow lesion is seen. There is fairly normal height and signal intensity to the cervical discs. Cervical cord shows normal homogeneous signal intensity and normal morphology. Craniocervical junction is unremarkable. C2-3: Central canal and neural foramina are widely patent. C3-4: Central canal and neural foramen are widely patent. C4-5: Central canal and neural foramina are widely patent. C5-6: There is some endplate osteophyte formation noted indenting the ventral thecal sac. The central canal and neural foramina remain widely patent. C6-7: Minimal endplate osteophyte formation is seen indenting the ventral thecal sac. The central canal and neural foramina are widely patent. C7-T1: No central canal or neural foraminal narrowing is seen. IMPRESSION: Minimal lower cervical spondylosis. No focal disc protrusion, central canal or neural foraminal stenosis is identified. Dictated by: Dictated on workstation # [id number]
--- NOTE | 2019-03-27 16:28 | Diagnostic Imaging Report ---
PROCEDURE: MRI lumbar spine. TECHNIQUE: Multiplanar, multisequence MRI of the lumbar spine was performed without contrast. INDICATION: Low back pain. Sciatica. COMPARISON: MRI lumbar spine without contrast 03/15/2018. FINDINGS: There are five lumbar type vertebral bodies for the purposes of this report. Normal alignment. Vertebral body heights preserved. Normal bone marrow signal. Stable disc desiccation at L5-S1. Stable small central disc protrusion at L5-S1. Intervertebral discs are otherwise well preserved. No substantial spinal canal, lateral recess or neural foraminal narrowing. No abnormal signal in the conus which terminates at L2. Normal morphology of the cauda equina. The visualized paravertebral soft tissues are unremarkable. IMPRESSION: Stable mild spondylotic changes. No neural impingement. No acute osseous findings. Dictated by: Dictated on workstation # [id number]
== END ==
LOC: RAD 15:00
PROVIDERS: ATTEND Nurse Practitioner Primary Care
DX: M54.2 Cervicalgia (principal); M47.816 Spondylosis without myelopathy or radiculopathy, lumbar region; M54.41 Lumbago with sciatica, right side
CPT/HCPCS: 72141; 72148

== ENCOUNTER → 2019-03-31 | Outpatient (CLI) | payer MEDICAID ==
[2019-03-31 13:51] LABS: ALANINE AMINOTRANSFERASE 17 U/L (0-55); ALBUMIN 4.1 GM/DL (3.2-4.5); ALKALINE PHOSPHATASE 117 U/L (40-136); BILIRUBIN,TOTAL 0.4 MG/DL (0.1-1.0); BUN/CREATININE RATIO 8; CARBON DIOXIDE 23 MMOL/L (21-32); CHLORIDE 106 MMOL/L (98-107); CHOLESTEROL 123 MG/DL (< 200); CREATININE SERUM 0.78 MG/DL (0.60-1.30); GFR ESTIMATED > 60; GLUCOSE 92 MG/DL (70-105); HDL CHOLESTEROL 32 MG/DL (40-60); POTASSIUM 4.3 MMOL/L (3.6-5.0); SODIUM 138 MMOL/L (135-145); TOTAL PROTEIN 7.1 GM/DL (6.4-8.2); TRIGLYCERIDES 163 MG/DL (<150); VLDL CHOLESTEROL 33 MG/DL (5-40)
== END ==
LOC: CARD 13:16
PROVIDERS: ATTEND Physician Assistant
DX: I25.10 Atherosclerotic heart disease of native coronary artery without angina pectoris (principal); I10 Essential (primary) hypertension; E78.2 Mixed hyperlipidemia
CPT/HCPCS: 36415; 80053; 80061; 93306

== ENCOUNTER → 2019-04-17 | Outpatient (CLI) | payer MEDICAID ==
[~2019-04-17] VITALS: Ht 170.2 cm; Wt 74.4 kg
[~2019-04-17] MED LIST changes: +CATHETER FLUSH 10 ML SYR IV PRN; +REGADENOSON 0.4 MG/5 ML SYR (LEXISCAN) IV ONE
--- NOTE | 2019-04-17 19:10 | STRESS TEST ---
DATE OF SERVICE: 04/17/2019 LEXISCAN MYOVIEW STRESS TEST REPORT REFERRING PHYSICIAN: Diana Ward DO, [facility]. Baseline heart rate is 54, baseline blood pressure 155/89. Baseline EKG is sinus rhythm with no ischemic changes. In summary, the patient was injected with 10.7 mCi of technetium-99 Myoview and the resting images were obtained. Then, the patient received 0.4 mg of Lexiscan followed by 30.4 mCi of technetium-99 Myoview. Throughout the test, there were no EKG changes. The resting and stress images were reviewed and compared in the short axis, horizontal long axis, and vertical long axis views. Review of the images showed breast attenuation with reversible ischemia involving the anterior wall, anterolateral wall and inferolateral wall. SSS is 14, SDS 9, and TID value 1.06. On the gated images, the left ventricle appeared to be normal size with normal contractility. Calculated ejection fraction is 57%. CONCLUSION: 1. The patient tolerated Lexiscan well. 2. Breast attenuation with reversible ischemia involving the anterior wall, anterolateral wall and inferolateral wall. 3. Normal left ventricular size with normal contractility. Calculated ejection fraction is 57%. Job ID: [id number] DocumentID: [id number] Dictated Date: 04/17/2019 16:44:38 Pantograph Machine Operator Date: 04/17/2019 19:09:47 Dictated By: JAILENE MILLER MD
== END ==
LOC: CARD 08:09
PROVIDERS: ATTEND Physician Assistant
DX: I25.10 Atherosclerotic heart disease of native coronary artery without angina pectoris (principal); N64.89 Other specified disorders of breast; I10 Essential (primary) hypertension; E78.2 Mixed hyperlipidemia
CPT/HCPCS: 78452; 93017

== ENCOUNTER 2019-05-03 10:47 | Day surgery (SDC) | payer MEDICAID ==
[~2019-05-03] VITALS: Ht 170.2 cm; Wt 72.6 kg
[2019-05-03] VITALS (10 sets, daily range): BP systolic 133–153; BP diastolic 87–105
[~2019-05-03 10:47] MED LIST changes: -CATHETER FLUSH 10 ML SYR IV PRN; +HEParin (CATH LAB) 2,000 ML IV ONE; +LIDOCAINE 1% INJ 20 ML 20 ML VIAL ONE; +NS IV 1000 ML 1,000 ML ONE; -REGADENOSON 0.4 MG/5 ML SYR (LEXISCAN) IV ONE
[2019-05-03] MEDS ORDERED: NS IV 1000 ML 1,000 ML IV SCH ×2 (10:49→12:37)
[2019-05-03 11:11] LABS: HEMOGLOBIN 12.1 G/DL (11.5-16.0); MEAN PLATELET VOLUME 10.3 FL (7.4-10.4); RED CELL DISTRIBUTION WIDTH 16.6 % (10.0-14.5); WHITE BLOOD COUNT 8.7 10^3/uL (4.3-11.0)
[2019-05-03] MEDS ORDERED: PROM25TA14 PO (11:26)
[2019-05-03] MEDS ORDERED: LORA10TA7 PO (11:26)
[2019-05-03] MEDS ORDERED: LEVO137T2 PO (11:26)
[2019-05-03] MEDS ORDERED: ESCI20TA PO (11:26)
[2019-05-03] MEDS ORDERED: INDO50CA11 PO (11:26)
[2019-05-03] MEDS ORDERED: HYDR-700 PO (11:26)
[2019-05-03 11:28] LABS: INR 0.9 (0.8-1.4); PROTHROMBIN TIME PATIENT 12.4 SEC (12.2-14.7)
[2019-05-03] MEDS ORDERED: ACET325T38 PO (11:29)
[2019-05-03] MEDS ORDERED: MULT-884 PO (11:29)
[2019-05-03 11:30] LABS: ALANINE AMINOTRANSFERASE 20 U/L (0-55); ALKALINE PHOSPHATASE 126 U/L (40-136); BILIRUBIN,TOTAL 0.3 MG/DL (0.1-1.0); BUN/CREATININE RATIO 10; CALCIUM 9.3 MG/DL (8.5-10.1); CARBON DIOXIDE 29 MMOL/L (21-32); CHLORIDE 105 MMOL/L (98-107); CHOLESTEROL 155 MG/DL (< 200); CREATININE SERUM 0.72 MG/DL (0.60-1.30); GFR ESTIMATED > 60; GLUCOSE 103 MG/DL (70-105); HDL CHOLESTEROL 39 MG/DL (40-60); POTASSIUM 3.9 MMOL/L (3.6-5.0); SODIUM 138 MMOL/L (135-145); TOTAL PROTEIN 7.1 GM/DL (6.4-8.2); TRIGLYCERIDES 157 MG/DL (<150); VLDL CHOLESTEROL 31 MG/DL (5-40)
--- NOTE | 2019-05-03 11:44 | Diagnostic Imaging Report ---
INDICATION: Abnormal stress test, coronary artery disease. COMPARISON: November 18, 2016. TECHNIQUE: Single frontal radiograph of the chest dated May 03, 2019. FINDINGS: The cardiac silhouette is within normal limits in size. No significant pulmonary vascular congestion. The lungs are clear. No pleural effusion. No pneumothorax. No acute osseous abnormality. IMPRESSION: No acute cardiopulmonary abnormality. Dictated by: Dictated on workstation # [id number]
[2019-05-03] MEDS ORDERED: fentaNYL INJECTION 100 MCG/2 ML AMP ONE (11:53)
[2019-05-03] MEDS ORDERED: MIDAZOLAM 5 MG/5 ML (VERSED) VIAL ONE (11:53)
--- NOTE | 2019-05-03 12:39 | Discharge Inst-Post CATH ---
Discharge Inst-CATH/EP Problems Reviewed?: Yes Post Cardiac Cath/EP D/C Inst Follow Up/Plan Appointment with Dr. MILLER's office in 2-4 weeks <b>CARDIAC CATH/EP PROCEDURE DISCHARGE INSTRUCTIONS</b> ACTIVITY * Go Home directly and rest. * Limit activity of the leg (or wrist if it was used) for 7 days including aerobics, swimming, jogging, bicycling, etc. * Restrict stair-climbing for 7 days if possible, if not, climb up with your non-cath leg, then bring together on the same step. * Avoid lifting, pushing, pulling or excessive movement of the affected extremity for 7 days. * Customary sexual activity may be resumed after 2 days-use caution not to use a position that strains or causes pain to the affected extremity. * No driving for 24 hours. * NO SMOKING. * Avoid straining for bowel movements for 7 days. * Gentle walking on level ground is allowed. * Returning to work will depend on the type of procedure and the results. Your doctor will discuss this with you. CALL YOUR DOCTOR FOR ANY OF THE FOLLOWING: *If bleeding from the puncture site occurs- Apply gentle pressure to site with clean cloth and call your doctor or EMS. * If a knot or lump forms under the skin, increases in size, or causes pain. * If bruising appears to be worsening or moving further down your leg instead of disappearing. * Temperature above 101 F. CARE OF YOUR GROIN INCISION; * Bruising or purple discoloration of the skin near the puncture site is common. * You may shower only, no bathtub bathing for 5 days. Be careful to avoid slipping as your leg may feel stiff. * If a closure device was used on your femoral artery, please see the attached guide regarding care of the device and your leg. * Leave dressing on FOR 24 hours. CARE OF YOUR WRIST INCISION; * Bruising or purple discoloration of the skin near the puncture site is common. * You may shower. * DO NOT submerge wrist. * Leave dressing on FOR 24 hours. JAILENE MILLER MD May 03, 2019 12:39
[2019-05-03] MEDS ORDERED: PATIENT MAY USE OWN MEDS, ALL PO SCH (12:45)
--- NOTE | 2019-05-03 12:45 | NUR ---
SPOKE WITH PT (SHE HAS HER BOTTLES) AND CALLED ANA TO COMPLETE THE MED REC. PT WAS ABLE TO VERIFY ALL HER MEDICATIONS WELL HOW SHE TAKES THEM. ALL THE PT'S BOTTLES HAD GOOD DATING AND WERE CURRENT. OTC MEDS: ASPIRIN 81M DAILY WOMEN'S MULTIVITAMIN: 1 DAILY FISH OIL 1,000M CAPS DAILY LORATADINE 10M DAILY ACETAMINOPHEN 325M TABS DAILY
--- NOTE | 2019-05-03 14:02 | Cardiac Cath Report ---
Cardiac Cath Report Physician (s)/Clerk Television Production (s) Physician JAILENE MILLER MD Pre-Procedure Diagnosis Pre-Procedure Diagnosis: coronary artery disease Post-Procedure Note Procedure Start Date: May 03, 2019 Name of Procedure: left heart catheterization Aortic arch angiogram Findings/Procedure Note PROCEDURE NOTE: 48 years old lady with history of coronary artery disease had myocardial infarction in 2017 and stent to circumflex artery, has an abnormal stress test. Scheduled for cardiac catheterization possible PTCA. After explaining the procedure to the patient, all pros and cons were explained, all questions were answered. The patient signed the consent and then she was placed on the cardiac catheterization laboratory. Groin was prepped SL fashion local anesthesia was used. Sheath placed in the right femoral artery, Danie le ft was advanced to the left carotid system, it appear that it occurred within the ascending aorta. I was concerned about aneurysm.. Advanced the wire and placed the Danie left against the left main coronary artery and angiogram was done then exchanged to Danie right catheter advanced to the right coronary artery, angiogram was done in pigtail catheter advanced to the left ventricular cavity pressure was measured pullback LV to aorta was done in aortic arch was done At the end of the procedure the sheath was removed. Closure device was used FINDINGS: Hemodynamics LV 139/17, end-diastolic pressure of 70 Aorta 142/82 mean of 107 ANATOMY: Left Main is free of obstructive disease Left Anterior Descending is slightly tortuous with no obstructive disease Left Circumflex has patent stent with mild disease nonobstructive disease Right Coronory Artery has mild disease of disease LV Gram was not done, pressure was measured Aorta evaluation showed normal aortic arch, slightly prominent, normal origin of the great vessels of the neck including the innominate artery left carotid and left subclavian, no significant obstructive disease CONCLUSION: 1. Patent stent in the circumflex artery with mild to moderate disease in the LAD and circumflex system nonobstructive disease 2. Luminal irregularity with a long segment of 40-50 percent stenosis in the midright coronary artery nonobstructive disease 3. Normal left ventricular end-diastolic pressure 4. Slightly prominent aortic arch, normal origin of the great vessels of the neck DISCUSSION AND RECOMMENDATION: medical therapy is recommended no intervention is warranted, continue to monitor the progression of the disease in the right coronary artery Anesthesia Type: Conscious Sedation Estimated blood loss (mL): 15 ml Contrast Amount: 54 m Total Radiation Dose: 342 mGy Post-Procedure Diagnosis Post-operative diagnosis: Chest pain Coronary artery disease Hypertension Hyperlipidemia JAILENE MILLER MD May 03, 2019 14:02
== END 2019-05-03 17:40 | disposition home or self-care (01) ==
LOC: CATH 10:47 → SDC 13:00 → CATH 17:40
PROVIDERS: ATTEND Internal Medicine Cardiovascular Disease
DX: R07.9 Chest pain, unspecified (principal); I25.10 Atherosclerotic heart disease of native coronary artery without angina pectoris; I21.4 Non-ST elevation (NSTEMI) myocardial infarction; I10 Essential (primary) hypertension; I77.819 Aortic ectasia, unspecified site; E78.5 Hyperlipidemia, unspecified; R94.39 Abnormal result of other cardiovascular function study; E07.9 Disorder of thyroid, unspecified; R94.6 Abnormal results of thyroid function studies; D07.1 Carcinoma in situ of vulva; Z88.6 Allergy status to analgesic agent; Z88.2 Allergy status to sulfonamides; Z88.8 Allergy status to other drugs, medicaments and biological substances; Z79.899 Other long term (current) drug therapy; Z79.82 Long term (current) use of aspirin; Z98.51 Tubal ligation status; Z90.710 Acquired absence of both cervix and uterus; Z90.89 Acquired absence of other organs; Z87.891 Personal history of nicotine dependence; Z79.891 Long term (current) use of opiate analgesic; Z83.3 Family history of diabetes mellitus; Z80.9 Family history of malignant neoplasm, unspecified; Z82.49 Family history of ischemic heart disease and other diseases of the circulatory system; Z82.3 Family history of stroke
CPT/HCPCS: 36221; 36415; 71045; 80053; 80061; 85027; 85610; 85730; 87081; 93458

== ENCOUNTER → 2020-03-13 | Outpatient (CLI) | payer MEDICAID ==
[~2020-03-13] MED LIST changes: +ACET325T38 PO; +ESCI20TA PO; +GADOBUTROL 10 MMOL/10 ML (GADAVIST) VIAL IV ONE; -HEParin (CATH LAB) 2,000 ML IV ONE; +HYDR-700 PO; +INDO50CA82 PO; +LEVO137T2 PO; -LIDOCAINE 1% INJ 20 ML 20 ML VIAL ONE; +LORA10TA7 PO; +MULT-884 PO; -NS IV 1000 ML 1,000 ML ONE; +SIMV10TA26 PO; -SIMV10TA3 PO
--- NOTE | 2020-03-13 09:46 | Diagnostic Imaging Report ---
CLINICAL INDICATION: Patient has been having headaches. EXAM: MRI of the brain performed without and with 7 cc of Gadavist IV contrast. Sequences include axial DWI, ADC map, axial gradient echo, axial T2, axial FLAIR, axial T1, axial T1 post IV contrast, coronal T1 fat-sat post IV contrast, and sagittal T1 post IV contrast. COMPARISON: None. FINDINGS: There is no evidence of acute cerebral infarct, intracranial hemorrhage, or gross mass effect. The brain parenchymal volume appears appropriate for patient's age. There is no abnormal IV contrast enhancement. There are small focal, patchy mildly confluent areas of high T2 signal white matter changes involving both cerebral hemispheres which appears advanced for patient's age. These findings are nonspecific. There is normal jeffery-white matter distinction. There is no significant midline shift or herniation. The [place] vascular structures show no gross abnormality as visualized. The pituitary gland, sella, and suprasellar regions are unremarkable as visualized. There is no evidence of hydrocephalus. The basal cisterns are unremarkable. The skull, extracranial soft tissue, and orbits are unremarkable. There is [id number]-wx-uvduturc mucosal thickening involving ethmoid sinus. There is minimal mucosal thickening involving the frontal sinus. There is a small amount of fluid involving the right mastoid air cells. IMPRESSION: 1: There is no evidence of acute intracranial process. There is no abnormal IV contrast enhancement. 2: There are nonspecific multiple focal, patchy, confluent areas of increased T2 signal white matter changes involving the white matter and periventricular regions. Comparison to prior MRI brain imaging would help better evaluate for chronicity and possibly etiology. Etiology such as chronic small vessel ischemic disease may be considered. Sequelae from previous infectious or inflammatory process cannot be excluded. A demyelinating process cannot be completely excluded given patient's age, but is suspected to be less likely. Clinical correlation with patient's symptoms would better evaluate if demyelinating process is even a consideration. 3: Paranasal sinus disease. Dictated by: Dictated on workstation # [id number]
== END ==
LOC: RAD 08:31
PROVIDERS: ATTEND Physician Assistant
DX: G93.89 Other specified disorders of brain (principal); J32.8 Other chronic sinusitis; G44.229 Chronic tension-type headache, not intractable
CPT/HCPCS: 70553

== ENCOUNTER → 2020-07-31 | Outpatient (CLI) | payer MEDICAID ==
[~2020-07-31] MED LIST changes: +ASPI-1238 PO; -ASPI-983 PO; -GADOBUTROL 10 MMOL/10 ML (GADAVIST) VIAL IV ONE; +GADOBUTROL 7.5 MMOL/7.5 ML (GADAVIST) VIAL IV ONE; +NABU-88 PO; -NABU500T PO; -PANT40TA3 PO; +PANT40TA52 PO
--- NOTE | 2020-07-31 16:18 | Diagnostic Imaging Report ---
CLINICAL INDICATION: Patient is having headaches. EXAM: MRI of the brain performed without and with 10 cc of Gadavist IV contrast. Sequences include axial DWI, ADC map, axial gradient echo, axial T2, axial FLAIR, axial T1, axial T1 post IV contrast, coronal T1 fat-sat post IV contrast, and sagittal T1 post IV contrast. COMPARISON: MRI of the brain performed without and with IV contrast dated 03/13/2020. FINDINGS: There is no evidence of acute cerebral infarct, intracranial hemorrhage, or gross mass effect. There is no abnormal IV contrast enhancement. The brain parenchymal volume appears appropriate for patient's age. Stable small patchy and mildly confluent areas of increased T2 signal white matter changes involving both cerebral hemispheres and periventricular regions. There is normal jeffery-white matter distinction. There is no significant midline shift or herniation. The kaw of Mckeon vascular structures show no gross abnormality as visualized. The pituitary gland, sella, and suprasellar regions are unremarkable as visualized. There is no evidence of hydrocephalus. The basal cisterns are unremarkable. Stable 6 mm in greatest dimension high T2, low T1 circumscribed cystic area in the midline posterior nasopharynx region which may represent a small Tornwaldt cyst. Otherwise, the skull, extracranial soft tissue, and orbits are unremarkable. There is mild ethmoid sinus mucosal thickening, which is slightly improved in the interim. Temporal bones show no significant abnormality. IMPRESSION: 1: Stable MRI of the brain with nonspecific chronic patchy and confluent areas of increased T2 signal white matter changes involving both cerebral hemispheres. There is no evidence of abnormal IV contrast enhancement or interval acute intracranial process. 2: There is mild ethmoid sinus disease which has slightly decreased in interim. 3: Stable small Tornwaldt cyst. Dictated by: Dictated on workstation # [id number]
== END ==
LOC: RAD 14:00
PROVIDERS: ATTEND Internal Medicine
DX: J01.20 Acute ethmoidal sinusitis, unspecified (principal); J39.2 Other diseases of pharynx; R20.2 Paresthesia of skin
CPT/HCPCS: 70553

== ENCOUNTER 2020-08-12 12:43 | Observation (INO) | payer MEDICAID ==
[2020-08-12] VITALS (9 sets, daily range): BP systolic 100–116; BP diastolic 67–78
[~2020-08-12] VITALS: Ht 170 cm; Wt 73.8 kg
[~2020-08-12 12:43] MED LIST changes: -GADOBUTROL 7.5 MMOL/7.5 ML (GADAVIST) VIAL IV ONE
[2020-08-12 13:15] LABS: BASOPHILS % (AUTO) 0 % (0-10); EOSINOPHILS # (AUTO) 0.1 10^3/uL (0.0-0.3); EOSINOPHILS % (AUTO) 1 % (0-10); HEMATOCRIT 39 % (35-52); HEMOGLOBIN 12.9 g/dL (11.5-16.0); LYMPHOCYTES # (AUTO) 3.4 10^3/uL (1.0-4.0); LYMPHOCYTES % (AUTO) 19 % (12-44); MEAN CORPUSCULAR HEMOGLOBIN 30 pg (25-34); MEAN CORPUSCULAR HGB CONC 33 g/dL (32-36); MEAN CORPUSCULAR VOLUME 92 fL (80-99); MEAN PLATELET VOLUME 8.9 fL (9.0-12.2); MONOCYTES # (AUTO) 0.7 10^3/uL (0.0-1.0); MONOCYTES % (AUTO) 4 % (0-12); NEUTROPHILS # (AUTO) 13.6 10^3/uL (1.8-7.8); NEUTROPHILS % (AUTO) 76 % (42-75); PLATELET COUNT 424 10^3/uL (130-400); WHITE BLOOD COUNT 17.9 10^3/uL (4.3-11.0)
[2020-08-12] MEDS ORDERED: ONDANSETRON 4 MG/2 ML (SDV) Z0FRAN IVP ONE (13:15)
--- NOTE | 2020-08-12 13:15 | ED Chest Pain ---
General Stated Complaint: L SIDED CP Source: patient Exam Limitations: no limitations History of Present Illness Date Seen by Provider: Aug 12, 2020 Time Seen by Provider: 12:57 Initial Comments Patient presents to the ER by private conveyance with chief complaint of chest pain for the past couple hours. She says she has a history of coronary disease with stents known to Dr. Trejo. Her chest pain is under her left armpit breast and radiating towards the midline. She is not having any shortness of breath or cough. She denies fever. She is having some nausea but no vomiting. She says that she started having this pain intermittently yesterday that was nonexertional. She is not having any diarrhea sick contacts. She had a negati ve Covid swab at her work last week. She has hyperlipidemia, hypertension and smokes about half a pack of cigarettes per day but does not have diabetes. She is taking her medications as prescribed. She is on a baby aspirin daily. Allergies and Home Medications Allergies Coded Allergies: acetaminophen (Unverified Adverse Reaction, Intermediate, DIZZY, FACE FLUSH, 05/18/17) oxycodone (Unverified Adverse Reaction, Intermediate, DIZZY, FACE FLUSHES, 05/18/17) oxycodone HCl (Unverified Adverse Reaction, Intermediate, DIZZY, FACE FLUSH, 05/18/17) Sulfa (Sulfonamide Antibiotics) (Unverified Adverse Reaction, Mild, N/V, 05/18/17) tramadol (Unverified Adverse Reaction, Mild, N/V, 05/18/17) Home Medications Acetaminophen 325 Mg Tablet, 975 MG PO Q8H PRN for PAIN-MILD, (Reported) Aspirin 81 Mg Tablet.dr, 81 MG PO DAILY, (Reported) Atorvastatin Calcium 80 Mg Tablet, 80 MG PO HS, (Reported) Escitalopram Oxalate 20 Mg Tablet, 20 MG PO DAILY, (Reported) Gabapentin 800 Mg Tablet, 800 MG PO QID, (Reported) Hydroxyzine HCl 25 Mg Tablet, 25 MG PO DAILY PRN for ANXIETY, (Reported) Indomethacin 50 Mg Capsule, 50 MG PO TID, (Reported) Levothyroxine Sodium 137 Mcg Tablet, 137 MCG PO DAILY, (Reported) Loratadine 10 Mg Tablet, 10 MG PO DAILY, (Reported) Losartan Potassium 100 Mg Tablet, 100 MG PO DAILY, (Reported) Multivits,Ca,Minerals/Iron/FA 1 Each Tablet, 1 EACH PO DAILY, (Reported) Nitroglycerin 0.4 Mg Tab.subl, 0.4 MG SL UD PRN for CHEST PAIN, (Reported) [place]-3/Dha/Epa/Fish Oil 1,000 Mg Capsule, 1,000 MG PO BID, (Reported) Pantoprazole Sodium 40 Mg Tablet.dr, 40 MG PO DAILY, (Reported) Pregabalin 50 Mg Capsule, 50 MG PO TID, (Reported) Promethazine HCl 25 Mg Tablet, 25 MG PO TID PRN for NAUSEA, (Reported) Promethazine HCl 25 Mg Tablet, 25 MG PO Q6H PRN for NAUSEA/VOMITING, (Reported) Patient Home Medication List Home Medication List Reviewed: Yes Review of Systems Review of Systems Constitutional: No chills, No diaphoresis, No fever, No malaise EENTM: No Blurred Vision, No Double Vision Respiratory: Denies Cough Cardiovascular: Chest Pain; Denies Edema Gastrointestinal: Denies Abdominal Pain, Denies Constipated, Denies Diarrhea, Denies Nausea Genitourinary: Denies Burning, Denies Discharge Musculoskeletal: No back pain, No joint pain Skin: No pruritus, No rash All Other Systems Reviewed Negative Unless Noted: Yes Past Jvucuup-Lprjnz-Padbrb Hx Patient Social History Alcohol Use: Denies Use Recreational Drug Use: No Smoking Status: Current Everyday Smoker Type Used: Cigarettes Recent Foreign Travel: No Contact w/Someone Who Travel: No Recent Hopitalizations: No Immunizations Up To Date PED Vaccines UTD: Yes Date of Influenza Vaccine: Nov 13, 2016 Seasonal Allergies Seasonal Allergies: Yes Past Medical History Surgeries: Yes Appendectomy, Coronary Stent, Hysterectomy, Tubal Ligation Respiratory: No Cardiac: Yes Coronary Artery Disease, Heart Attack, Heart Murmur, High Cholesterol, Hypertension Neurological: Yes Headaches /Migraines, Neuropathy 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 Sexually Transmitted Disease: No HIV/AIDS: No Genitourinary: No Gastrointestinal: No Musculoskeletal: Yes Degenerate Disk Disease, Fibromyalgia, Chronic Back Pain Endocrine: Yes Hypothyroidsim HEENT: No Loss of Vision: Bilateral Hearing Impairment: Denies Cancer: Yes Skin Did You Recieve Any Treatments: Yes What Type of Treatment Did You: Surgical Intervention Psychosocial: Yes Anxiety Integumentary: No Blood Disorders: Yes (HX ANEMIA) Adverse Reaction/Blood Tranf: No (N/A) Family Medical History No Pertinent Family Hx Physical Exam Vital Signs Vital Signs - First Documented 08/12/20 13:14 Temp 36.6 Pulse 71 Resp 18 B/P (MAP) 116/82 (93) Pulse Ox 98 Capillary Refill : Height, Weight, BMI Height: 5'7.00" Weight: 160lbs. 0.0oz. 72.036550um; 25.1 BMI Method:Stated General Appearance: WD/WN, Anxious HEENT: PERRL/EOMI, Pharynx Normal, Moist Mucous Membranes Neck: Full Range of Motion, Normal Inspection Respiratory: Lungs Clear, Normal Breath Sounds, No Accessory Muscle Use, No Respiratory Distress Cardiovascular: Regular Rate, Rhythm, No Edema, Normal Peripheral Pulses Gastrointestinal: Normal Bowel Sounds, Non Tender, Soft Extremity: Normal Capillary Refill, Normal Inspection, Normal Range of Motion, No Pedal Edema Neurologic/Psychiatric: Alert, Oriented x3 Skin: Normal Color, Warm/Dry Progress/Results/Core Measures Results/Orders Lab Results Laboratory Tests Test 08/12/20 13:01 Range/Units White Blood Count 17.9 H 4.3-11.0 10^3/uL Red Blood Count 4.24 3.80-5.11 10^6/uL Hemoglobin 12.9 11.5-16.0 g/dL Hematocrit 39 35-52 % Mean Corpuscular Volume 92 80-99 fL Mean Corpuscular Hemoglobin 30 25-34 pg Mean Corpuscular Hemoglobin Concent 33 32-36 g/dL Red Cell Distribution Width 15.9 H 10.0-14.5 % Platelet Count 424 H 130-400 10^3/uL Mean Platelet Volume 8.9 L 9.0-12.2 fL Immature Granulocyte % (Auto) 0 % Neutrophils (%) (Auto) 76 H 42-75 % Lymphocytes (%) (Auto) 19 12-44 % Monocytes (%) (Auto) 4 0-12 % Eosinophils (%) (Auto) 1 0-10 % Basophils (%) (Auto) 0 0-10 % Neutrophils # (Auto) 13.6 H 1.8-7.8 10^3/uL Lymphocytes # (Auto) 3.4 1.0-4.0 10^3/uL Monocytes # (Auto) 0.7 0.0-1.0 10^3/uL Eosinophils # (Auto) 0.1 0.0-0.3 10^3/uL Basophils # (Auto) 0.0 0.0-0.1 10^3/uL Immature Granulocyte # (Auto) 0.1 0.0-0.1 10^3/uL Neutrophils % (Manual) 75 % Lymphocytes % (Manual) 21 % Monocytes % (Manual) 3 % Eosinophils % (Manual) 0 % Basophils % (Manual) 0 % Band Neutrophils 1 % Anisocytosis SLIGHT Prothrombin Time 12.5 12.2-14.7 SEC INR Comment 0.9 0.8-1.4 Activated Partial Thromboplast Time 28 24-35 SEC Sodium Level 131 L 135-145 MMOL/L Potassium Level 3.5 L 3.6-5.0 MMOL/L Chloride Level 98 98-107 MMOL/L Carbon Dioxide Level 23 21-32 MMOL/L Anion Gap 10 5-14 MMOL/L Blood Urea Nitrogen 9 7-18 MG/DL Creatinine 0.66 0.60-1.30 MG/DL Estimat Glomerular Filtration Rate > 60 BUN/Creatinine Ratio 14 Glucose Level 119 H 70-105 MG/DL Calcium Level 8.8 8.5-10.1 MG/DL Corrected Calcium 8.7 8.5-10.1 MG/DL Magnesium Level 1.6 1.6-2.4 MG/DL Total Bilirubin 0.5 0.1-1.0 MG/DL Aspartate Amino Transf (AST/SGOT) 20 5-34 U/L Alanine Aminotransferase (ALT/SGPT) 16 0-55 U/L Alkaline Phosphatase 95 40-136 U/L Myoglobin 42.2 10.0-92.0 NG/ML Troponin I < 0.028 <0.028 NG/ML B-Type Natriuretic Peptide 99.6 <100.0 PG/ML Total Protein 6.8 6.4-8.2 GM/DL Albumin 4.1 3.2-4.5 GM/DL My Orders Orders - FRANCISCO JAVIER PATTERSON Ekg Tracing (08/12/20 12:59) Continuous Ekg Monitoring (08/12/20 12:59) Ondansetron Injection (Zofran Injectio (08/12/20 13:15) Aspirin Chewable Tablet (Baby Aspirin Ch (08/12/20 13:30) Nitroglycerin 0.4 Mg Btl 25's (Nitrostat (08/12/20 13:30) Medications Given in ED Current Medications Medications Dose Ordered Sig/Sandra Route Start Time Stop Time Status Last Admin Dose Admin Aspirin 324 mg ONCE ONCE PO 08/12/20 13:30 08/12/20 13:31 DC 08/12/20 13:24 324 MG Nitroglycerin 0.4 mg NEEDED PRN SL 08/12/20 13:30 08/12/20 13:24 0.4 MG Ondansetron HCl 4 mg ONCE ONCE IVP 08/12/20 13:15 08/12/20 13:16 DC 08/12/20 13:24 4 MG Vital Signs/I&O 08/12/20 13:14 Temp 36.6 Pulse 71 Resp 18 B/P (MAP) 116/82 (93) Pulse Ox 98 Progress Progress Note : Time: 14:02 Progress Note Initial troponin is negative. EKG unremarkable. Waiting chest x-ray as she does have a 18 white count of uncertain significance. She is not having any cough but pneumonia is a possibility. Initial ECG Impression Date: Aug 12, 2020 Initial ECG Impression Time: 13:00 Initial ECG Rate: 69 Initial ECG Rhythm: Normal Sinus Initial ECG Intervals: Normal Initial ECG Impression: Normal Comment Normal sinus rhythm without clinically relevant ST elevation or depression. Diagnostic Imaging Diagonstic Imaging: Xray Plain Films/CT/US/NM/MRI: chest Comments NAME: LYNDA GARCIA [facility] REC#: [id number] PT STATUS: REG ER : 1970 PHYSICIAN: YULISA STILL APRN ADMIT DATE: 08/12/20/ER Signed Date of Exam:08/12/20 CHEST 1 VIEW, AP/PA ONLY INDICATION: Chest pain. Comparison is made with prior examination 05/03/2019. FINDINGS: There is cardiomegaly. Lungs are clear. There is no pleural effusion or pneumothorax. Mediastinum is unremarkable. IMPRESSION: No acute cardiopulmonary abnormality. Cardiomegaly. Dictated by: Dictated on workstation # [id number] Dict: 08/12/20 1408 Trans: 08/12/20 1411 [facility] [id number] Interpreted by: HEIDY FRAGOSO MD Electronically signed by: HEIDY FRAGOSO MD 08/12/20 1411 Reviewed: Reviewed by Me Departure Communication (Admissions) Time/Spoke to Admitting Phy: 14:45 Discussed the case with Dr. Warner she agrees observe the patient with consultation to cardiology Time/Spoke to Consulting Phy: 14:30 Discussed the case with Dr. Trejo and he recommends observation and he would consult. Impression Primary Impression: Unstable angina Disposition: ADMITTED INPATIENT Condition: Stable Admissions Decision to Admit Reason: Admit from ER (General) Decision to Admit/Date: Aug 12, 2020 Time/Decision to Admit Time: 14:00 Departure-Patient Inst. Referrals: [facility] (PCP/Family) Primary Care Physician FRANCISCO JAVIER PATTERSON Aug 12, 2020 13:15
[2020-08-12 13:25] LABS: ALBUMIN 4.1 GM/DL (3.2-4.5); CHLORIDE 98 MMOL/L (98-107)
[2020-08-12 13:26] LABS: POTASSIUM 3.5 MMOL/L (3.6-5.0); SODIUM 131 MMOL/L (135-145)
[2020-08-12 13:27] LABS: CALCIUM 8.8 MG/DL (8.5-10.1); INR 0.9 (0.8-1.4); PROTHROMBIN TIME PATIENT 12.5 SEC (12.2-14.7)
[2020-08-12 13:28] LABS: GLUCOSE 119 MG/DL (70-105); TOTAL PROTEIN 6.8 GM/DL (6.4-8.2)
[2020-08-12 13:29] LABS: CARBON DIOXIDE 23 MMOL/L (21-32)
[2020-08-12 13:30] LABS: BILIRUBIN,TOTAL 0.5 MG/DL (0.1-1.0)
[2020-08-12] MEDS ORDERED: NITROGLYCERIN 0.4 MG SL TABS BTL 25'S SL PRN ×2 (13:30→15:45)
[2020-08-12] MEDS ORDERED: ASPIRIN 81 MG CHEW (CHILDREN'S ASA) PO ONE (13:30)
[2020-08-12 13:31] LABS: ALKALINE PHOSPHATASE 95 U/L (40-136)
[2020-08-12 13:32] LABS: ANISOCYTOSIS SLIGHT; BAND NEUTROPHILS 1 %; BASOPHILS % (MANUAL) 0 %; CREATININE SERUM 0.66 MG/DL (0.60-1.30); EOSINOPHILS % (MANUAL) 0 %; GFR ESTIMATED > 60; LYMPHOCYTES % (MANUAL) 21 %; MONOCYTES % (MANUAL) 3 %; NEUTROPHILS % (MANUAL) 75 %
[2020-08-12 13:33] LABS: BUN/CREATININE RATIO 14
[2020-08-12 13:34] LABS: ALANINE AMINOTRANSFERASE 16 U/L (0-55); MAGNESIUM 1.6 MG/DL (1.6-2.4)
--- NOTE | 2020-08-12 14:11 | Diagnostic Imaging Report ---
INDICATION: Chest pain. Comparison is made with prior examination 05/03/2019. FINDINGS: There is cardiomegaly. Lungs are clear. There is no pleural effusion or pneumothorax. Mediastinum is unremarkable. IMPRESSION: No acute cardiopulmonary abnormality. Cardiomegaly. Dictated by: Dictated on workstation # [id number]
--- NOTE | 2020-08-12 14:38 | NUR ---
pt daughter updated on pt condition and plan of care at this time.
[2020-08-12] MEDS ORDERED: morphine INJ 4 MG/ML 1 ML (VIAL/SYRINGE) IV PRN (15:45)
[2020-08-12] MEDS ORDERED: LORazepam INJ 2 MG/ML (ATIVAN) VIAL IV PRN (15:45)
[2020-08-12] MEDS ORDERED: ONDANSETRON 4 MG/2 ML (SDV) Z0FRAN IVP PRN (15:45)
[2020-08-12] MEDS ORDERED: ANTACID SUSP 30 ML UDC (MYLANTA) PO PRN (15:45)
[2020-08-12] MEDS ORDERED: ONDANSETRON 4 MG/2 ML (SDV) Z0FRAN IV PRN (15:45)
[2020-08-12] MEDS ORDERED: CATHETER FLUSH 10 ML SYR IV PRN (15:45)
[2020-08-12] MEDS ORDERED: ACETAMINOPHEN 500 MG TAB (TYLENOL) PO PRN (15:45)
--- NOTE | 2020-08-12 15:49 | NUR ---
RADHALYNDA Kothari admitted to room 413-1, with an admitting diagnosis of chest pain, on 08/12/20 from ED via wheel chair , accompanied by staff .LYNDA GARCIA introduced to surroundings, call light, bed controls, phone, TV, temperature control, lights, meal times, smoking policy, visitor policy, side rail policy, bathrooms and showers. Patient Rights given to patient in the handbook. LYNDA GARCIA verbalizes understanding that [facility] is not responsible for the loss or damage to any personal effects or valuables that are kept in the patients posession during their hospitalization. The following Patient Care Plans and discharge were discussed with the patient. LYNDA GARCIA verbalizes understanding of Interdisciplinary Patient Education. Patient was informed about the Rapid Response Team and its purpose.
[2020-08-12] MEDS ORDERED: NICOTINE 7 MG (NICODERM) PATCH TD PRN (16:00)
[2020-08-12] MEDS ORDERED: NICOTINE 7 MG (NICODERM) PATCH TD SCH (16:00)
[2020-08-12] MEDS ORDERED: HYDR-3781 PO (16:26)
[2020-08-12] MEDS ORDERED: CNC1KV IM (16:26)
[2020-08-12] MEDS ORDERED: GABA300C PO (16:26)
[2020-08-12] MEDS ORDERED: METO50TA7 PO (16:26)
[2020-08-12] MEDS ORDERED: ASPI-1238 PO (16:26)
[2020-08-12] MEDS ORDERED: HYDR25TA4 PO (16:26)
[2020-08-12] MEDS ORDERED: DULO60CA59 PO (16:26)
--- NOTE | 2020-08-12 16:29 | NUR ---
SPOKE WITH THE PT, AND WENT THRU THE EXT MED HISTORY TO COMPLETE THE MED REC PT WAS ABLE TO NAME ALL HER MEDICATIONS WELL WHEN/HOW SHE TAKES EACH GABAPENTIN: PT FILLS 300MG & 800MG CAPS AND TAKES 2 (TO EQUAL 600MG) TWICE DAILY AND THEN TAKES AN 800MG CAP HS OTC MEDS: ASPIRIN 81 FISH OIL MTV TYLENOL LORATADINE
[2020-08-12] MEDS ORDERED: REGADENOSON 0.4 MG/5 ML SYR (LEXISCAN) IV ONE (17:45)
--- NOTE | 2020-08-12 17:48 | Consultation-Cardiology ---
HPI-Cardiology Cardiology Consultation Date of Consultation 08/12/20 Date of Admission Time Seen by Provider: 17:45 Indication: chest pain HPI 49 years old lady with history of coronary artery disease, history of stenting, started to have chest pain dull in nature on the left side of her chest radiating to the left axillary area associated with lightheadedness, no shortness of breath. No full syncope was reported. Came into the emergency room for evaluation. So far her workup has been negative, EKG did not show any acute abnormality Home Medications & Allergies Allergies: Coded Allergies: acetaminophen (Unverified Adverse Reaction, Intermediate, DIZZY, FACE FLUSH, 05/18/17) oxycodone (Unverified Adverse Reaction, Intermediate, DIZZY, FACE FLUSHES, 05/18/17) oxycodone HCl (Unverified Adverse Reaction, Intermediate, DIZZY, FACE FLUSH, 05/18/17) Sulfa (Sulfonamide Antibiotics) (Unverified Adverse Reaction, Mild, N/V, 05/18/17) tramadol (Unverified Adverse Reaction, Mild, N/V, 05/18/17) Home Medication List Reviewed: Yes BIA-Pxeeah-Dgbhfb Hx Patient Social History Alcohol Use: Denies Use Recreational Drug Use: No Smoking Status: Current Everyday Smoker Type Used: Cigarettes Recent Foreign Travel: No Recent Infectious Disease Expo: No Recent Hopitalizations: No Physical Abuse Screen: No Sexual Abuse: No Immunizations Up To Date Date of Pneumonia Vaccine: May 30, 2019 Date of Influenza Vaccine: May 30, 2020 Past Medical History Discussed below Family Medical History Significant Family History: No Pertinent Family Hx Family History: Diabetes mellitus 19 MOTHER Hypertension 19 MOTHER Thyroid disease 19 MOTHER Review of Systems-General Review of Systems Constitutional: No chills, No diaphoresis, No fever, No malaise EENTM: see HPI, no symptoms reported Respiratory: see HPI; No cough, No dyspnea on exertion, No hemoptysis, No orthopnea, No phlegm, No short of breath, No stridor, No wheezing, No other Cardiovascular: see HPI, chest pain; No edema, No Hx of Intervention, No palpitations, No syncope, No vascular heart diseas, No other Gastrointestinal: no symptoms reported, see HPI Genitourinary: no symptoms reported, see HPI Musculoskeletal: No back pain, No joint pain Skin: No pruritus, No rash Psychiatric/Neurological: No Symptoms Reported, See HPI All Other Systems Reviewed Negative Unless Noted: Yes Reviewed Test Results Reviewed Test Results Lab Laboratory Tests Test 08/12/20 13:01 Range/Units White Blood Count 17.9 H 4.3-11.0 10^3/uL Red Blood Count 4.24 3.80-5.11 10^6/uL Hemoglobin 12.9 11.5-16.0 g/dL Hematocrit 39 35-52 % Mean Corpuscular Volume 92 80-99 fL Mean Corpuscular Hemoglobin 30 25-34 pg Mean Corpuscular Hemoglobin Concent 33 32-36 g/dL Red Cell Distribution Width 15.9 H 10.0-14.5 % Platelet Count 424 H 130-400 10^3/uL Mean Platelet Volume 8.9 L 9.0-12.2 fL Immature Granulocyte % (Auto) 0 % Neutrophils (%) (Auto) 76 H 42-75 % Lymphocytes (%) (Auto) 19 12-44 % Monocytes (%) (Auto) 4 0-12 % Eosinophils (%) (Auto) 1 0-10 % Basophils (%) (Auto) 0 0-10 % Neutrophils # (Auto) 13.6 H 1.8-7.8 10^3/uL Lymphocytes # (Auto) 3.4 1.0-4.0 10^3/uL Monocytes # (Auto) 0.7 0.0-1.0 10^3/uL Eosinophils # (Auto) 0.1 0.0-0.3 10^3/uL Basophils # (Auto) 0.0 0.0-0.1 10^3/uL Immature Granulocyte # (Auto) 0.1 0.0-0.1 10^3/uL Neutrophils % (Manual) 75 % Lymphocytes % (Manual) 21 % Monocytes % (Manual) 3 % Eosinophils % (Manual) 0 % Basophils % (Manual) 0 % Band Neutrophils 1 % Anisocytosis SLIGHT Prothrombin Time 12.5 12.2-14.7 SEC INR Comment 0.9 0.8-1.4 Activated Partial Thromboplast Time 28 24-35 SEC Sodium Level 131 L 135-145 MMOL/L Potassium Level 3.5 L 3.6-5.0 MMOL/L Chloride Level 98 98-107 MMOL/L Carbon Dioxide Level 23 21-32 MMOL/L Anion Gap 10 5-14 MMOL/L Blood Urea Nitrogen 9 7-18 MG/DL Creatinine 0.66 0.60-1.30 MG/DL Estimat Glomerular Filtration Rate > 60 BUN/Creatinine Ratio 14 Glucose Level 119 H 70-105 MG/DL Calcium Level 8.8 8.5-10.1 MG/DL Corrected Calcium 8.7 8.5-10.1 MG/DL Magnesium Level 1.6 1.6-2.4 MG/DL Total Bilirubin 0.5 0.1-1.0 MG/DL Aspartate Amino Transf (AST/SGOT) 20 5-34 U/L Alanine Aminotransferase (ALT/SGPT) 16 0-55 U/L Alkaline Phosphatase 95 40-136 U/L Myoglobin 42.2 10.0-92.0 NG/ML Troponin I < 0.028 <0.028 NG/ML B-Type Natriuretic Peptide 99.6 <100.0 PG/ML Total Protein 6.8 6.4-8.2 GM/DL Albumin 4.1 3.2-4.5 GM/DL Physical Exam Physical Exam Vital Signs Vital Signs - First Documented 08/12/20 08/12/20 13:14 13:30 Temp 36.6 Pulse 71 Resp 18 B/P (MAP) 116/82 (93) Pulse Ox 98 O2 Delivery Room Air Capillary Refill : Less Than 3 Seconds Height, Weight, BMI Height: 5'7.00" Weight: 160lbs. 0.0oz. 72.412149sw; 25.53 BMI Method:Stated General Appearance: WD/WN, Anxious HEENT: PERRL/EOMI, Pharynx Normal, Moist Mucous Membranes Neck: Full Range of Motion, Normal Inspection Respiratory: Lungs Clear, Normal Breath Sounds, No Accessory Muscle Use, No Respiratory Distress Cardiovascular: Regular Rate, Rhythm, No Edema, Normal Peripheral Pulses Gastrointestinal: Normal Bowel Sounds, Non Tender, Soft Extremity: Normal Capillary Refill, Normal Inspection, Normal Range of Motion, No Pedal Edema Neurologic/Psychiatric: Alert, Oriented x3 Skin: Normal Color, Warm/Dry A/P-Cardiology Admission Diagnosis Chest pain Coronary artery disease Hypertension Hyperlipidemia Assessment/Plan Chest pain resembling angina, extensive cardiac history, I'll continue monitor ing planning for stress test in the morning Coronary artery disease, history of a stent to the circumflex artery using Alpine 2.5 x 18 mm expanded to 3.75 mm with excellent results Hypertension, restart home medication monitor Hyperlipidemia, restart statin, evaluate lipid profile Tobaccoism educated on smoking cessation Family history of atherosclerotic disease Clinical Quality Measures DVT/VTE Risk/Contraindication: Risk Factor Score Per Nursin RFS Level Per Nursing on Admit: 4+=Very High JAILENE MILLER MD Aug 12, 2020 17:48
[2020-08-12] MEDS ORDERED: ENOXAPARIN 40 MG/0.4 ML (LOVENOX) SYR SC SCH (21:00)
[2020-08-12] MEDS: CATHETER FLUSH 10 ML SYR IV SCH (21:55)
[2020-08-13 00:12] VITALS: BP 115/74
[2020-08-13 03:13] VITALS: BP 124/85
[2020-08-13] MEDS: CATHETER FLUSH 10 ML SYR IV SCH (05:21)
[2020-08-13 05:47] LABS: BASOPHILS % (AUTO) 0 % (0-10); EOSINOPHILS # (AUTO) 0.1 10^3/uL (0.0-0.3); EOSINOPHILS % (AUTO) 1 % (0-10); HEMATOCRIT 38 % (35-52); HEMOGLOBIN 12.1 g/dL (11.5-16.0); LYMPHOCYTES # (AUTO) 3.3 10^3/uL (1.0-4.0); LYMPHOCYTES % (AUTO) 38 % (12-44); MEAN CORPUSCULAR HEMOGLOBIN 30 pg (25-34); MEAN CORPUSCULAR HGB CONC 32 g/dL (32-36); MEAN CORPUSCULAR VOLUME 92 fL (80-99); MEAN PLATELET VOLUME 9.1 fL (9.0-12.2); MONOCYTES # (AUTO) 0.6 10^3/uL (0.0-1.0); MONOCYTES % (AUTO) 7 % (0-12); NEUTROPHILS # (AUTO) 4.6 10^3/uL (1.8-7.8); NEUTROPHILS % (AUTO) 53 % (42-75); PLATELET COUNT 419 10^3/uL (130-400); WHITE BLOOD COUNT 8.6 10^3/uL (4.3-11.0)
[2020-08-13 05:54] LABS: CHLORIDE 99 MMOL/L (98-107); POTASSIUM 3.9 MMOL/L (3.6-5.0); SODIUM 132 MMOL/L (135-145)
--- NOTE | 2020-08-13 05:54 | History & Physical-Hospitalist ---
History of Present Illness HPI/Chief Complaint CC: Chest pain HPI: This is a 49yoWF with a past medical history of DM and current smoking, who presented with chest pain in need of ruling out acute coronary syndrome. She had an echocardiogram by cardiology and will be assessed regarding the next step and risk-stratification by cardiology. Source: patient Exam Limitations: no limitations Date Seen 08/13/20 Time Seen by a Provider: 10:00 Attending Physician Caroline Warner DO [facility] [place] Referring Physician Date of Admission Aug 12, 2020 at 14:45 Home Medications & Allergies Home Medications Reviewed patient Home Medication Reconciliation performed by pharmacy medication reconciliations upholstery technician and/or nursing. Patients Allergies have been reviewed. Allergies Allergies Coded Allergies acetaminophen (Unverified Adverse Reaction, Intermediate, DIZZY, FACE FLUSH, 05/18/17) oxycodone (Unverified Adverse Reaction, Intermediate, DIZZY, FACE FLUSHES, 05/18/17) oxycodone HCl (Unverified Adverse Reaction, Intermediate, DIZZY, FACE FLUSH, 05/18/17) Sulfa (Sulfonamide Antibiotics) (Unverified Adverse Reaction, Mild, N/V, 05/18/17) tramadol (Unverified Adverse Reaction, Mild, N/V, 05/18/17) Past Yyeygog-Duyuwg-Nvnqnj Hx Past Med/Social Hx: Reviewed Nursing Past Med/Soc Hx, Reviewed and Corrections made Patient Social History Marrital Status: single Employed/Student: unemployed Alcohol Use: Denies Use Recreational Drug Use: No Smoking Status: Current Everyday Smoker Type Used: Cigarettes Physical Abuse Screen: No Sexual Abuse: No Recent Foreign Travel: No Contact w/other who traveled: No Recent Hopitalizations: No Recent Infectious Disease Expo: No Immunizations Up To Date Pediatric: Yes Date of Pneumonia Vaccine: May 30, 2019 Date of Influenza Vaccine: May 30, 2020 Seasonal Allergies Seasonal Allergies: Yes Past Medical History Surgeries: Appendectomy, Coronary Stent, Hysterectomy, Tubal Ligation Cardiac: Coronary Artery Disease, Heart Attack, Heart Murmur, High Cholesterol, Hypertension Neurological: Headaches /Migraines, Neuropathy Reproductive: No Sexually Transmitted Disease: No HIV/AIDS: No Hysterectomy Musculoskeletal: Degenerate Disk Disease, Fibromyalgia, Chronic Back Pain Endocrine: Hypothyroidsim Loss of Vision: Bilateral Hearing Impairment: Denies Cancer: Skin Did You Recieve Any Treatments: Yes What Type of Treatment Did You: Surgical Intervention Psychosocial: Anxiety History of Blood Disorders: Yes (HX ANEMIA) Adverse Reaction to Blood Ramey: No (N/A) Family History Diabetes mellitus 19 MOTHER Hypertension 19 MOTHER Thyroid disease 19 MOTHER No Pertinent Family Hx Review of Systems Constitutional: see HPI Cardiovascular: chest pain Physical Exam Physical Exam Vital Signs Vital Signs - First Documented 08/12/20 08/12/20 13:14 13:30 Temp 36.6 Pulse 71 Resp 18 B/P (MAP) 116/82 (93) Pulse Ox 98 O2 Delivery Room Air Capillary Refill : Less Than 3 Seconds Height, Weight, BMI Height: 5'7.00" Weight: 160lbs. 0.0oz. [id number]; 25.53 BMI Method:Stated General Appearance: No Apparent Distress, Chronically ill Eyes: Right Eye Normal Inspection, Right Eye PERRL HEENT: PERRL/EOMI, TMs Normal, Normal ENT Inspection, Pharynx Normal, Moist Mucous Membranes Neck: Full Range of Motion, Normal Inspection, Non Tender Respiratory: Chest Non Tender, Lungs Clear, Normal Breath Sounds, No Accessory Muscle Use, No Respiratory Distress Cardiovascular: Regular Rate, Rhythm, No Edema, No Gallop, No JVD, No Murmur, Normal Peripheral Pulses Gastrointestinal: Normal Bowel Sounds, No Organomegaly, No Pulsatile Mass, Non Tender, Soft Back: Normal Inspection, No CVA Tenderness, No Vertebral Tenderness Extremity: Normal Capillary Refill, Normal Inspection, Normal Range of Motion, Non Tender, No Calf Tenderness, No Pedal Edema Neurologic/Psychiatric: Alert, Oriented x3, No Motor/Sensory Deficits, Normal Mood/Affect Skin: Normal Color, Warm/Dry Lymphatic: No Adenopathy Results Results/Procedures Labs Laboratory Tests 08/12/20 13:01 08/13/20 05:27 Patient resulted labs reviewed. Assessment/Plan Admission Diagnosis Assessment: Chest pain CADAngina HTN HLP Plan: Cardiology consultation Admission Status: Observation Diagnosis/Problems Diagnosis/Problems (1) Chest pain Status: Acute Clinical Quality Measures DVT/VTE Risk/Contraindication: Risk Factor Score Per Nursin RFS Level Per Nursing on Admit: 4+=Very High CAROLINE WARNER DO Aug 13, 2020 05:54
[2020-08-13 05:55] LABS: ALBUMIN 3.7 GM/DL (3.2-4.5)
[2020-08-13 05:56] LABS: CALCIUM 8.8 MG/DL (8.5-10.1)
[2020-08-13 05:57] LABS: GLUCOSE 115 MG/DL (70-105); TOTAL PROTEIN 6.4 GM/DL (6.4-8.2); TRIGLYCERIDES 225 MG/DL (<150); VLDL CHOLESTEROL 45 MG/DL (5-40)
[2020-08-13 05:58] LABS: CARBON DIOXIDE 25 MMOL/L (21-32)
[2020-08-13 05:59] LABS: BILIRUBIN,TOTAL 0.3 MG/DL (0.1-1.0)
[2020-08-13 06:01] LABS: ALKALINE PHOSPHATASE 94 U/L (40-136); CREATININE SERUM 0.64 MG/DL (0.60-1.30); GFR ESTIMATED > 60
[2020-08-13 06:02] LABS: BUN/CREATININE RATIO 16; CHOLESTEROL 137 MG/DL (< 200)
[2020-08-13 06:03] LABS: HDL CHOLESTEROL 45 MG/DL (40-60)
[2020-08-13 06:04] LABS: ALANINE AMINOTRANSFERASE 12 U/L (0-55)
[2020-08-13 08:00] VITALS: BP 123/84
--- NOTE | 2020-08-13 08:00 | NUR ---
MORNING MEDICATIONS HELD PER DOUG TRAN
--- NOTE | 2020-08-13 08:15 | Cardiology Progress Note ---
Subjective Date Seen by Provider: Aug 13, 2020 Time Seen by Provider: 08:14 Subjective/Events-last exam Patient in bed, denies any further episode of chest pain Review of Systems General: No Chills, No Night Sweats, No Fatigue, No Malaise, No Appetite, No Other HEENT: No Head Aches, No Visual Changes, No Eye Pain, No Ear Pain, No Dysphasia, No Sinus Congestion, No Post Nasal Drip, No Sore Throat, No Other Pulmonary: No Dyspnea, No Cough, No Pleuritic Chest Pain, No Other Cardiovascular: No: Chest Pain, Palpitations, Orthopnea, Paroxysmal Noc. Dyspnea, Edema, Lt Headedness, Other Objective-Cardiology Exam Last Set of Vital Signs Vital Signs 08/13/20 08/13/20 03:13 07:08 Temp 36.2 Pulse 87 Resp 16 B/P (MAP) 124/85 (98) Pulse Ox 93 O2 Delivery Room Air Capillary Refill : Less Than 3 Seconds I&O Intake and Output 08/13/20 00:00 Intake Total 1067 ml Balance 1067 ml Intake Oral 1067 ml # Voids 2 Daily Weight Change No No General: Alert, Oriented X3, Cooperative HEENT: Atraumatic, PERRLA Neck: Supple, No JVD, No Thyromegaly Lungs: Clear to Auscultation, Normal Air Movement Heart: Regular Rate, Normal S1, Normal S2, No Murmurs Abdomen: Normal Bowel Sounds, Soft, No Tenderness, No Hepatosplenomegaly, No Ma sses Extremities: No Clubbing, No Cyanosis, No Edema, Normal Pulses, No Tender ness/Swelling Skin: No Rashes, No Breakdown, No Significant Lesion Neuro: Normal Gait, Normal Speech, Strength at 5/5 X4 Ext, Normal Tone, Sensation Intact Psych/Mental Status: Mental Status NL, Mood NL Results Lab Laboratory Tests 08/12/20 13:01 08/13/20 05:27 A/P-Cardiology Admission Diagnosis Chest pain Coronary artery disease Hypertension Hyperlipidemia Assessment/Plan Chest pain resembling angina, extensive cardiac history, I'll continue monitoring planning for stress test at noon Coronary artery disease, history of a stent to the circumflex artery in 2017 using Alpine 2.5 x 18 mm expanded to 3.75 mm with excellent results Hypertension, continue to monitor blood pressure Hyperlipidemia, back on Lipitor 80 mg daily, continue to monitor Tobaccoism educated on smoking cessation Family history of atherosclerotic disease Patient was seen and evaluated with Leila, examination performed, management plan was discussed, agree with the current scribed note, I made few changes to the note using Italic font Patient was seen today, feeling better, denied any active pain, planning to evaluate stress test Restart home medication and monitor blood pressure, monitor electrolytes Clinical Quality Measures DVT/VTE Risk/Contraindication: Risk Factor Score Per Nursin RFS Level Per Nursing on Admit: 4+=Very High LEILA DUVAL Aug 13, 2020 08:15 JAILENE MILLER MD Aug 13, 2020 09:52
[2020-08-13] MEDS ORDERED: NICOTINE PATCH REMOVAL TP SCH (08:59)
[2020-08-13] MEDS ORDERED: ASPIRIN E.C. 81 MG (ECOTRIN) TAB PO SCH (09:00)
[2020-08-13] MEDS ORDERED: LOSARTAN 100 MG (COZAAR) TABLET PO SCH (09:00)
[2020-08-13] MEDS ORDERED: HYDROCHLOROTHIAZIDE 25 MG (HCTZ) TAB PO SCH (09:00)
[2020-08-13] MEDS ORDERED: CATHETER FLUSH 10 ML SYR IV PRN (10:45)
[2020-08-13] MEDS ORDERED: REGADENOSON 0.4 MG/5 ML SYR (LEXISCAN) IV ONE (11:40)
[2020-08-13 11:50] VITALS: BP 136/94
[2020-08-13 12:00] VITALS: BP 137/91
--- NOTE | 2020-08-13 14:50 | NUR ---
CALLED DR MILLER TO FOR STRESS TEST RESULTS;-PLAN FOR PATIENT, NPO STATUS
--- NOTE | 2020-08-13 14:55 | Cardiology Stress Test Report ---
Stress Test Report Date of Procedure/Referring: Date of Procedure: Aug 13, 2020 PCP Caroline Warner DO Admitting Physician [facility] Indications: chest pain Baseline Blood Pressure: Blood Pressure Systolic: 137 Blood Pressure Diastolic: 91 Baseline Vitals Vital Signs Date Time Temp Pulse Resp B/P (MAP) Pulse Ox O2 Delivery O2 Flow Rate FiO2 08/12/20 13:14 36.6 71 18 116/82 (93) 98 08/12/20 13:30 Room Air Summary After explaining the procedure to the patient, she signed a consent and then brought to the stress nuclear laboratory. Patient received 0.4 mg Lexiscan for stress test, ECG, heart rate and blood pressure were monitored continuously. Resting and stress dose of radio tracer were injected, imaging was acquired and reviewed in short axis, horizontal long axis and vertical long axis views. SSS: 0 SDS: 0 EF: 45 1. Patient tolerated Lexiscan well 2. No significant ischemia or infarction on SPECT images 3. Normal left ventricular size, hypokinesia of the inferior wall, EF 45 percent JAILENE MILLER MD Aug 13, 2020 14:55
--- NOTE | 2020-08-13 15:16 | Discharge Summary ---
Discharge Summary Hospital Course Was the Problem List Reviewed?: Yes Problems/Dx: (1) Chest pain Status: Acute Hospital Course Date of Admission: Aug 12, 2020 at 14:45 Admission Diagnosis : Family Physician/Provider: Center[facility] Date of Discharge: 08/13/20 Discharge Diagnosis: chest pain without ACS Hospital Course: see HPI and est results Labs and Pending Lab Test: Laboratory Tests 08/12/20 19:08: Troponin I < 0.028 08/13/20 01:03: Troponin I < 0.028 08/13/20 05:27: White Blood Count 8.6, Red Blood Count 4.07, Hemoglobin 12.1, Hematocrit 38, Mean Corpuscular Volume 92, Mean Corpuscular Hemoglobin 30, Mean Corpuscular Hemoglobin Concent 32, Red Cell Distribution Width 16.2H, Platelet Count 419H, Mean Platelet Volume 9.1, Immature Granulocyte % (Auto) 0, Neutrophils (%) (Auto) 53, Lymphocytes (%) (Auto) 38, Monocytes (%) (Auto) 7, Eosinophils (%) (Auto) 1, Basophils (%) (Auto) 0, Neutrophils # (Auto) 4.6, Lymphocytes # (Auto) 3.3, Monocytes # (Auto) 0.6, Eosinophils # (Auto) 0.1, Basophils # (Auto) 0.0, Immature Granulocyte # (Auto) 0.0, Sodium Level 132L, Potassium Level 3.9, Chloride Level 99, Carbon Dioxide Level 25, Anion Gap 8, Blood Urea Nitrogen 10, Creatinine 0.64, Estimat Glomerular Filtration Rate > 60, BUN/Creatinine Ratio 16, Glucose Level 115H, Calcium Level 8.8, Corrected Calcium 9.0, Total Bilirubin 0.3, Aspartate Amino Transf (AST/SGOT) 14, Alanine Aminotransferase (ALT/SGPT) 12, Alkaline Phosphatase 94, Total Protein 6.4, Albumin 3.7, Triglycerides Level 225H, Cholesterol Level 137, LDL Cholesterol Direct 48, VLDL Cholesterol 45H, HDL Cholesterol 45 Home Meds Active Reported Hydroxyzine Pamoate 25 Mg Capsule 25 Mg PO DAILY PRN Metoprolol Succinate 50 Mg Tab.er.24h 50 Mg PO HS Hydrochlorothiazide 25 Mg Tablet 25 Mg PO DAILY Cyanocobalamin Injection (Cyanocobalamin) 1,000 Mcg/Ml Inj 1,000 Mcg IM SUN TAKES ONCE WEEKLY ON WEDNESDAY Duloxetine HCl 60 Mg Capsule.dr 60 Mg PO BID Neurontin (Gabapentin) 300 Mg Capsule 600 Mg PO BID TAKES 2 (300MG) CAPS Aspirin EC (Aspirin) 81 Mg Tablet.dr 81 Mg PO DAILY Tylenol (Acetaminophen) 325 Mg Tablet 650-975 Mg PO Q8H PRN Women's Daily Caplet (Multivits,Ca,Minerals/Iron/FA) 1 Each Tablet 1 Each PO DAILY Loratadine 10 Mg Tablet 10 Mg PO DAILY Levothyroxine Sodium 137 Mcg Tablet 137 Mcg PO DAILY Gabapentin 800 Mg Tablet 800 Mg PO HS Losartan Potassium 100 Mg Tablet 100 Mg PO DAILY Nitroglycerin 0.4 Mg Tab.subl 0.4 Mg SL UD PRN Fish Oil 1,000 mg Softgel ([place]-3/Dha/Epa/Fish Oil) 1,000 Mg Capsule 1,000 Mg PO BID Atorvastatin Calcium 80 Mg Tablet 80 Mg PO HS Pantoprazole Sodium 40 Mg Tablet.dr 40 Mg PO DAILY Assessment/Pt Instructions PCP 1 week Discharge Planning: <30 minutes discharge planning Discharge Instructions Discharge Diet: No Restrictions, Cardiac Diet Discharge Physical Examination Vital Signs Vital Signs Date Time Temp Pulse Resp B/P (MAP) Pulse Ox O2 Delivery O2 Flow Rate FiO2 08/13/20 12:00 35.8 67 18 137/91 (106) 99 Room Air General Appearance: No Apparent Distress, WD/WN, Chronically ill Allergies: Coded Allergies: acetaminophen (Unverified Adverse Reaction, Intermediate, DIZZY, FACE FLUSH, 05/18/17) oxycodone (Unverified Adverse Reaction, Intermediate, DIZZY, FACE FLUSHES, 05/18/17) oxycodone HCl (Unverified Adverse Reaction, Intermediate, DIZZY, FACE FLUSH, 05/18/17) Sulfa (Sulfonamide Antibiotics) (Unverified Adverse Reaction, Mild, N/V, 05/18/17) tramadol (Unverified Adverse Reaction, Mild, N/V, 05/18/17) Discharge Summary Date of Admission Aug 12, 2020 at 14:45 Date of Discharge Discharge Date: Aug 13, 2020 Clinical Quality Measures DVT/VTE Risk/Contraindication: Risk Factor Score Per Nursin RFS Level Per Nursing on Admit: 4+=Very High JUSTIN CANELA DO Aug 13, 2020 15:16
[2020-08-13] MEDS ORDERED: meTOproloL SUCCINATE 50 MG (TOPROL XL) TAB PO SCH (21:00)
== END 2020-08-13 15:50 | disposition home or self-care (01) ==
LOC: EDUNIT# 12:43 → ER 12:44 → UNDOADMOB 14:45 → 4TH 14:45 → UNDODISOB 08-13 15:50
PROVIDERS: ADMIT Internal Medicine; ATTEND Internal Medicine
DX: R07.9 Chest pain, unspecified (principal); F17.210 Nicotine dependence, cigarettes, uncomplicated; I10 Essential (primary) hypertension; E78.00 Pure hypercholesterolemia, unspecified; G43.909 Migraine, unspecified, not intractable, without status migrainosus; E03.9 Hypothyroidism, unspecified; G89.29 Other chronic pain; M54.5 Low back pain; F41.9 Anxiety disorder, unspecified; D64.9 Anemia, unspecified; I25.110 Atherosclerotic heart disease of native coronary artery with unstable angina pectoris; E11.40 Type 2 diabetes mellitus with diabetic neuropathy, unspecified; I36.1 Nonrheumatic tricuspid (valve) insufficiency; Z79.82 Long term (current) use of aspirin; Z79.899 Other long term (current) drug therapy; Z88.5 Allergy status to narcotic agent; Z88.2 Allergy status to sulfonamides; Z85.828 Personal history of other malignant neoplasm of skin; Z90.710 Acquired absence of both cervix and uterus; Z95.5 Presence of coronary angioplasty implant and graft
CPT/HCPCS: 71045; 78452; 80053 ×2; 80061; 83735; 83874; 83880; 84484 ×2; 85007; 85025; 85027; 85610; 85730; 93005 ×2; 93017; 93041; 93306; 96374; 99284; A9502; G0378; 36415

== ENCOUNTER → 2020-08-14 | Outpatient (CLI) | payer MEDICAID ==
[~2020-08-14] MED LIST changes: +CNC1KV IM; +DULO60CA59 PO; +GABA300C PO; +HYDR-3781 PO; +HYDR25TA4 PO; +METO50TA7 PO
--- NOTE | 2020-08-14 12:26 | Diagnostic Imaging Report ---
MRI RT LOWER EXT JOINT W/O TECHNIQUE: Multiplanar, multisequence MR imaging of the right knee was performed without contrast. COMPARISON: None available. INDICATION: Right knee pain. FINDINGS: MENISCI Medial meniscus: Minimal truncation of the free edge of the medial meniscus may represent small amount of free edge tearing. Lateral meniscus: Normal. LIGAMENTS ACL: Intact. PCL: Intact. MCL: Intact. LCL: The lateral collateral ligamentous complex is intact. EXTENSOR MECHANISM The extensor mechanism is intact. CARTILAGE Medial compartment: Medial compartment articular cartilage is well preserved without focal high-grade chondromalacia. Lateral compartment: The lateral compartment articular cartilage is preserved without high-grade chondromalacia. Patellofemoral compartment: The patellofemoral articular cartilage is well preserved without high-grade chondromalacia. BONE No fracture, stress fracture or osteonecrosis. SOFT TISSUE No knee effusion or Fong's cyst. IMPRESSION: 1. Potential mild degenerative free edge tearing in the body of the medial meniscus. 2. Cruciate and collateral ligaments are intact. 3. Articular cartilage is well preserved. Dictated by: Dictated on workstation # [id number]
== END ==
LOC: RAD 11:00
PROVIDERS: ATTEND Nurse Practitioner
DX: S83.221D Peripheral tear of medial meniscus, current injury, right knee, subsequent encounter (principal); X58.XXXD Exposure to other specified factors, subsequent encounter
CPT/HCPCS: 73721

== ENCOUNTER 2020-10-09 05:37 | Outpatient (RCR) | payer MEDICAID ==
[~2020-10-09] VITALS: Ht 170.2 cm; Wt 72.6 kg
[2020-10-10] MEDS ORDERED: HYDR50TA6 PO (10:41)
[2020-10-10] MEDS ORDERED: PROM25TA14 PO (10:41)
[2020-10-10] MEDS ORDERED: METO100T6 PO (10:41)
[2020-10-10] MEDS ORDERED: GBPN600T PO (10:41)
[2020-10-10] MEDS ORDERED: INDO50CA82 PO (10:41)
[2020-10-10] MEDS ORDERED: ATOR40TA70 PO (10:41)
== END 2020-10-14 09:51 | disposition home or self-care (01) ==
LOC: PREOP 05:37
PROVIDERS: ATTEND Orthopaedic Surgery
DX: Z01.812 Encounter for preprocedural laboratory examination (principal); S83.241A Other tear of medial meniscus, current injury, right knee, initial encounter; X58.XXXA Exposure to other specified factors, initial encounter

== ENCOUNTER 2020-10-16 08:21 | Day surgery (SDC) | payer MEDICAID ==
--- NOTE | 2020-10-07 10:46 | HISTORY AND PHYSICAL ---
DATE OF SERVICE: ADMISSION HISTORY AND PHYSICAL DATE OF ADMISSION: 10/16/2020. This will be for outpatient surgery on 10/16/2020 for a right knee arthroscopy. HISTORY OF PRESENT ILLNESS: The patient is a 50-year-old female with several month history of increasing right knee pain, swelling, popping and locking. She has undergone treatment with injection, which provided only temporary relief of her symptoms. She has been treated with oral medications and anti-inflammatories without relief. She has tried home exercise program, activity modifications, ice treatment knee bracing without relief. An MRI revealed a medial meniscus tear. She reports activity limitations because of the knee and because she has failed to respond to conservative measures, she has elected to proceed with surgical intervention. REVIEW OF SYSTEMS: No chest pain, no shortness of breath, and no dysuria. PAST MEDICAL HISTORY: Anxiety disorder, depression, hyperlipidemia, hypertension, hypothyroidism, melanoma, coronary artery disease, migraines, fibromyalgia, scoliosis, neck pain, reflux, insomnia, and osteoarthritis. PAST SURGICAL HISTORY: Appendectomy, cardiac catheterization with stent placement, hysterectomy, tubal ligation, melanoma removal, and left rotator cuff repair. FAMILY HISTORY: Significant for arthritis, thyroid disorder, cancer, diabetes and melanoma. PRIMARY CARE PROVIDER: Dr. Daniel. MEDICATIONS: Atorvastatin, pantoprazole, levothyroxine, , aspirin, Cymbalta, Neurontin, losartan, hydromorphone, oxycodone, diazepam, azithromycin, Seroquel, metoprolol, and hydrochlorothiazide. ALLERGIES: IBUPROFEN, AMITRIPTYLINE, OXYCODONE, BACTRIM, and TRAMADOL. SOCIAL HISTORY: The patient smokes a half pack of cigarettes per day. Denies alcohol use. PHYSICAL EXAMINATION: GENERAL: The patient is well-developed, well-nourished, in no acute distress. HEENT: Normocephalic and atraumatic. Pupils are equal, round, reactive to light. Oropharynx is clear. NECK: Supple and no lymphadenopathy. LUNGS: Clear to auscultation bilaterally. HEART: Regular rate and rhythm. ABDOMEN: Soft, nontender, and nondistended. EXTREMITIES: The right knee demonstrates a trace effusion. She has tenderness throughout the medial joint line and has pain reproduced medially with Raul's. She has negative anterior drawer, negative posterior drawer. No varus valgus laxity. Range of motion is 0/0/130. She has crepitus with patellar loading and pain with patellar loading. IMPRESSION: Right knee medial meniscus tear with associated chondromalacia. PLAN: Right knee arthroscopy with partial medial meniscectomy and chondroplasty. The risks, benefits, options, ramifications and recovery have been discussed at length with the patient. She understands and wishes to proceed. Job ID: [id number] DocumentID: [id number] Dictated Date: 10/07/2020 10:31:53 Felt Washing Machine Tender Date: 10/07/2020 10:45:50 Dictated By: AKHIL HUSSEIN MD
[~2020-10-16] VITALS: Ht 170.2 cm; Wt 72.6 kg
[2020-10-16] VITALS (11 sets, daily range): BP systolic 96–161; BP diastolic 63–100
[~2020-10-16 08:21] MED LIST changes: +ATOR40TA70 PO; +GBPN600T PO; +HYDR50TA6 PO; +HYDROcodone/APAP 7.5 MG/325 MG (LORTAB, LORCET PLUS) TABLET PO PRN; +METO100T6 PO
[2020-10-16] MEDS ORDERED: LIDOCAINE PF 2% 5 ML (XYLOCAINE) VIAL ONE ×2 (08:29→09:55)
[2020-10-16] MEDS ORDERED: SEVOFLURANE (ULTANE) 15 ML INHAL SOLN ONE (08:29)
[2020-10-16] MEDS ORDERED: MIDAZOLAM 2 MG/2 ML (VERSED) VIAL ONE (08:29)
[2020-10-16] MEDS ORDERED: fentaNYL INJECTION 100 MCG/2 ML AMP ONE (08:29)
[2020-10-16] MEDS ORDERED: proPOfol 200 MG/20 ML (DIPRIVAN) VIAL IV ONE (08:29)
[2020-10-16] MEDS ORDERED: ONDANSETRON 4 MG/2 ML (SDV) Z0FRAN ONE (08:29)
[2020-10-16] MEDS ORDERED: ceFAZolin INJECTION 1,000 MG in WATER (STERILE) FOR INJECTION 10 ML IV ONE (08:30)
[2020-10-16] MEDS ORDERED: LACTATED RINGERS 1,000 ML IV PRN (08:30)
[2020-10-16] MEDS ORDERED: BUPIVACAINE 0.25% 30 ML (SENSORCAINE) VIAL ONE (08:39)
[2020-10-16] MEDS ORDERED: morphine PF (DURAMORPH) 10 MG/10 ML AMP ONE (08:39)
--- NOTE | 2020-10-16 09:43 | Progress Note-Pre Operative ---
Pre-Operative Progress Note H&P Reviewed The H&P was reviewed, patient examined and no changes noted. Date Seen by Provider: Oct 16, 2020 Time Seen by Provider: :30 Date H&P Reviewed: Oct 16, 2020 Time H&P Reviewed: :30 Pre-Operative Diagnosis: right medial meniscal tear and chondromalacia AKHIL HUSSEIN MD Oct 16, 2020 09:43
--- NOTE | 2020-10-16 09:48 | Progress Note-Post Operative ---
Post-Operative Progess Note Surgeon (s)/Manager Tax (s) Surgeon AKHIL HUSSEIN MD Manager Tax: Lisandro Ramirez Pre-Operative Diagnosis right knee medial meniscal and chondromalacia Post-Operative Diagnosis right knee chondral defect of the medial femoral condyle Procedure & Operative Findings Date of Procedure 10/16/20 Procedure Performed/Findings right knee arthroscopic microfracture of the medial femoral condyle Anesthesia Type GETA Estimated Blood Loss Estimated blood loss (mL): minimal Specimens/Packing Specimens Removed none Packing: none AKHIL HUSSEIN MD Oct 16, 2020 09:48
[2020-10-16] MEDS ORDERED: GLYCOPYRROLATE 0.2 MG/ML (ROBINUL) 2 ML VIAL ONE (10:05)
[2020-10-16] MEDS ORDERED: HYDROmorphone 2 MG/ML VIAL (DILAUDID) IV ONE (10:30)
[2020-10-16] MEDS ORDERED: ONDANSETRON 4 MG/2 ML (SDV) Z0FRAN IVP PRN (10:30)
[2020-10-16] MEDS ORDERED: HYDR-34 PO (11:39)
[2020-10-16] MEDS ORDERED: HYDROCORTISONE 1% CREAM 30 GM TUBE TOP SCH (11:53)
--- NOTE | 2020-10-16 12:51 | Physical Therapy Ortho Eval ---
PT Orthopedic Evaluation Type of Surgery Knee Scope right side Prior Level of Function Current Living Status: Children Locomotion (Upon Admit): Independent Subjective Subjective Patient in bed pre tx, agrees to PT, has 7/10 right knee pain Entry Into Home: Stairs Without Railing Steps Into Home: 5 Motor Control Motor Control: Motor Control WNL ROM right knee flexion 15 degrees, extension +3 degrees. Patient has poor right knee ROM due to pain. Transfer SCALE: Activities may be completed with or without assistive devices. 3-Kcoxxoypwr-utkfkyc completes the activity by him/herself with no assistance from a helper. 5-Set-up or Clean-up Assistance-helper sets up or cleans up; patient completes activity. [place] assists only prior to or following the activity. 4-Supervision or Touching Assistance-helper provides verbal cues and/or touching/steadying and/or contact guard assistance as patient completes activity. Assistance may be provided throughout the activity or intermittently. 3-Partial/Moderate Assistance-helper does LESS THAN HALF the effort. [place] lifts, holds or supports trunk or limbs, but provides less than half the effort. 2-Substantial/Maximal Assistance-helper does MORE THAN HALF the effort. [place] lifts or holds trunk or limbs and provides more than half the effort. 2-Lazefcsis-fsteig does ALL the effort. Patient does none of the effort to complete the activity. Or, the assistance of 2 or more helpers is required for the patient to complete the activity. If activity was not attempted, code reason: 7-Patient Refused. 9-Not Applicable-not attempted and the patient did not perform the activity before the current illness, exacerbation or injury. 10-Not Attempted due to Environmental Limitations-(lack of equipment, weather restraints, etc.). 88-Not Attempted due to Medical Conditions or Safety Concerns. Transfers (B, C, W/C) (QC): 4 Gait Gait Assistive Device: FWW Right Lower Extremity: Right Weight Bearing Status RLE: Weight Bearing/Tolerated Gait (QC): 4 Distance: 150' Summary/Comments Patient can ambulate 150' with a rolling walker with CGA, patient ambulates slow but steady, keeps her right knee stiff. Patient also went up and down 1 step using a rolling walker with CGA and cues for foot placement. Treatment Rendered Treatment: Therapeutic Exercises, Gait Train, Step Train Exercise Instruction: Quad Sets, Heel Slides, Ankle Pumps Assessment/Goals Goal Time Frame: 1 Visit Understands HEP: Yes Safe Ambulation: Yes Plan Treatment Plan: Discharge PT/Family Agrees to Plan: Yes Time Time In: 1140 Time Out: 1200 Total Billed Treatment Time: 20 Billed Treatment Time 1 visit EVL 20' CHESTER CALVERT PT Oct 16, 2020 12:51
--- NOTE | 2020-10-16 13:12 | OPERATIVE REPORT ---
DATE OF SERVICE: 10/16/2020 PREOPERATIVE DIAGNOSIS: Right knee medial meniscus tear. POSTOPERATIVE DIAGNOSIS: Right knee chondral defect of the medial femoral condyle. PROCEDURE: Right knee arthroscopic microfracture of the medial femoral condyle. SURGEON: Davidson Hussein MD FIREFIGHTER MARINE: Lisandro Ramirez, who assisted throughout the procedure and closed the incisions. ANESTHESIA: General endotracheal by Panfilo Tamayo CRNA. ESTIMATED BLOOD LOSS: Minimal. DRAINS: None. COMPLICATIONS: None. POSTOPERATIVE PLAN: Routine arthroscopy protocol. The patient was transferred to the recovery room awake and in stable condition. STATEMENT OF MEDICAL NECESSITY: The patient is a 50-year-old female with complaints of right medial knee pain, catching, locking and swelling. She tried rest, activity modifications and injections without relief. Due to functional impairment and failure to improve with conservative measures, the patient elected to proceed with surgical intervention. Examination under anesthesia revealed range of motion of 0/0/140 with negative Nima, negative anterior and posterior drawer. No varus valgus laxity, negative pivot shift. Arthroscopic findings of patella and trochlea demonstrated no gross chondral abnormalities. Medial and lateral gutters were clear. The ACL and PCL were intact. Lateral compartment demonstrated no meniscal or chondral pathology. The medial compartment demonstrated no meniscal pathology. However, there was grade IV chondral defect on the anterior medial aspect of the femoral condyle in a 10 x 10 area. PROCEDURE IN DETAIL: After risks and benefits of procedure were discussed and questions were answered, informed consent was signed and placed on chart. The operative site was confirmed in the preoperative holding area initialed by the surgeon. The patient was then transferred to the operating room and after adequate levels of general endotracheal anesthetic were obtained, a timeout was called, confirming the operative site and examination under anesthesia was performed with above findings noted. The right lower extremity was prepped and draped in the usual sterile fashion. The knee joint was injected with 60 mL of fluid and standard inferolateral portal was placed with arthroscope. Under direct visualization, inferior medial portal was created, the menisci and cruciates carefully probed with the above findings noted. The chondral flap on the femoral condyle was debrided back to a stable edge. This was a well-shouldered lesion and a microfracture was performed with a curved awl in 3 mm increments with good blood return noted. The knee was copiously irrigated. Port sites were closed with 4-0 nylon in septic fashion. Knee was injected with Duramorph. The portal sites were infiltrated with plain Marcaine. A soft dressing was applied and the patient was transferred to the recovery room awake and in stable condition. Job ID: [id number] DocumentID: [id number] Dictated Date: 10/16/2020 10:33:35 Expansion Joint Finisher Date: 10/16/2020 13:12:07 Dictated By: DAVIDSON HUSSEIN MD
--- NOTE | 2020-10-21 10:46 | Anesthesia-General Post-Op ---
General Significant Intra-Op Events Notes post op completed 10/16 1100 Patient Condition Mental Status/LOC: Same as Preop Cardiovascular: Satisfactory Nausea/Vomiting: Absent Respiratory: Satisfactory Pain: Controlled Complications: Absent Post Op Complications Complications None Follow Up Care/Instructions Patient Instructions None needed. Anesthesia/Patient Condition Patient Condition Patient is doing well, no complaints, stable vital signs, no apparent adverse anesthesia problems. No complications reported per nursing. [place] [facility] [place] [facility] CRNA Oct 21, 2020 10:46
== END 2020-10-16 12:35 | disposition home or self-care (01) ==
LOC: SDC 08:21
PROVIDERS: ATTEND Orthopaedic Surgery
DX: M23.91 Unspecified internal derangement of right knee (principal); I25.10 Atherosclerotic heart disease of native coronary artery without angina pectoris; I10 Essential (primary) hypertension; E78.2 Mixed hyperlipidemia; G43.909 Migraine, unspecified, not intractable, without status migrainosus; M19.90 Unspecified osteoarthritis, unspecified site; F32.9 Major depressive disorder, single episode, unspecified; I25.2 Old myocardial infarction; F41.9 Anxiety disorder, unspecified; F17.210 Nicotine dependence, cigarettes, uncomplicated; Z90.710 Acquired absence of both cervix and uterus; Z88.1 Allergy status to other antibiotic agents; Z88.2 Allergy status to sulfonamides; Z88.5 Allergy status to narcotic agent; Z88.6 Allergy status to analgesic agent; Z88.8 Allergy status to other drugs, medicaments and biological substances; Z98.51 Tubal ligation status; Z85.820 Personal history of malignant melanoma of skin; Z95.5 Presence of coronary angioplasty implant and graft; Z79.1 Long term (current) use of non-steroidal anti-inflammatories (NSAID); Z79.02 Long term (current) use of antithrombotics/antiplatelets; Z79.82 Long term (current) use of aspirin; Z79.899 Other long term (current) drug therapy; Z98.890 Other specified postprocedural states; Z83.3 Family history of diabetes mellitus
CPT/HCPCS: 87081

== ENCOUNTER → 2020-11-29 | Outpatient (CLI) | payer MEDICAID ==
[~2020-11-29] MED LIST changes: -HYDROcodone/APAP 7.5 MG/325 MG (LORTAB, LORCET PLUS) TABLET PO PRN
--- NOTE | 2020-11-29 11:44 | Diagnostic Imaging Report ---
INDICATION: Routine screening. COMPARISON: No prior mammograms are available for comparison. This is a baseline study. TECHNIQUE: 2D and 3D bilateral screening mammography was performed with CAD. FINDINGS: Scattered fibroglandular densities are identified bilaterally. There are benign calcifications bilaterally. No mass or malignant appearing microcalcification are seen. The axillae are unremarkable. IMPRESSION: No mammographic features suspicious for malignancy are identified. ACR BI-RADS Category 2: Benign findings. Result letter will be mailed to the patient. Note: At least 10% of breast cancer is not imaged by mammography. Dictated by: Dictated on workstation # [id number]
== END ==
LOC: RAD 09:21
PROVIDERS: ATTEND Obstetrics & Gynecology
DX: Z12.31 Encounter for screening mammogram for malignant neoplasm of breast (principal)
CPT/HCPCS: 77063; 77067

== ENCOUNTER → 2021-06-16 | Outpatient (CLI) | payer MEDICAID ==
[~2021-06-16] MED LIST changes: -NABU-88 PO; +NABU500T8 PO
== END ==
LOC: LABNPT 06:14
PROVIDERS: ATTEND Otolaryngology Otolaryngology/Facial Plastic Surgery
DX: G47.33 Obstructive sleep apnea (adult) (pediatric) (principal); Z20.822 Contact with and (suspected) exposure to COVID-19
CPT/HCPCS: 87635

== ENCOUNTER 2021-06-18 20:18 | Outpatient (CLI) | payer MEDICAID | END 2021-06-19 06:46 | disposition home or self-care (01) | LOC: SLEEP 20:18 | PROVIDERS: ATTEND Otolaryngology Otolaryngology/Facial Plastic Surgery | DX: G47.33 Obstructive sleep apnea (adult) (pediatric) (principal); G47.09 Other insomnia | CPT/HCPCS: 95810 ==

== ENCOUNTER → 2021-10-01 | Outpatient (CLI) | payer MEDICAID ==
[2021-10-01 13:15] LABS: ALBUMIN 3.9 GM/DL (3.2-4.5); POTASSIUM 4.1 MMOL/L (3.6-5.0)
[2021-10-01 13:16] LABS: CALCIUM 9.1 MG/DL (8.5-10.1)
[2021-10-01 13:18] LABS: TOTAL PROTEIN 6.9 GM/DL (6.4-8.2)
[2021-10-01 13:19] LABS: BILIRUBIN,TOTAL 0.4 MG/DL (0.1-1.0)
[2021-10-01 13:21] LABS: CREATININE SERUM 0.68 MG/DL (0.60-1.30)
== END ==
LOC: LAB 12:38
PROVIDERS: ATTEND Internal Medicine Cardiovascular Disease
DX: E78.2 Mixed hyperlipidemia (principal)
CPT/HCPCS: 36415; 80053; 80061

== ENCOUNTER → 2022-02-18 | Outpatient (CLI) | payer MEDICAID ==
[~2022-02-18] MED LIST changes: +GADOTERATE 0.5 MMOL/ML (CLARISCAN) 15 ML VIAL IV ONE
--- NOTE | 2022-02-18 16:43 | Diagnostic Imaging Report ---
PROCEDURE: MR imaging of the brain with and without contrast. TECHNIQUE: Multiplanar, multisequence MR imaging of the brain was performed with and without contrast. DATE: February 18, 2022. COMPARISON: MRI brain July 31, 2020. HISTORY: 51-year-old female, chronic headaches. FINDINGS: There is no restricted diffusion. There are no areas of abnormal intracranial susceptibility. The ventricles and CSF spaces are normal in size and configuration for patient age. There is no abnormal extra axial fluid collection. There is no acute intracranial hemorrhage. There is no mass effect or midline shift. There are areas of T2 hyperintense signal in the periventricular and subcortical white matter which are nonspecific. These are unchanged since the comparison MRI. There is no diffusion restriction or contrast enhancement of these areas. There is normal aeration of the visualized paranasal sinuses and mastoid air cells. IMPRESSION: 1. No identified acute intracranial abnormality. 2. Unchanged areas of abnormal signal in the periventricular and subcortical white matter without diffusion restriction or contrast enhancement. These are nonspecific. Findings of chronic small vessel ischemic disease are perhaps most likely. Vasculitis and demyelinating etiology are difficult to exclude. Dictated by: Dictated on workstation # [id number]
== END ==
LOC: RAD 14:45
PROVIDERS: ATTEND Internal Medicine
DX: E53.8 Deficiency of other specified B group vitamins (principal); R51.9 Headache, unspecified; R90.82 White matter disease, unspecified
CPT/HCPCS: 36415; 70553; 82607; 82746

== ENCOUNTER 2022-10-15 20:43 | Emergency (ER) | payer MEDICAID ==
[~2022-10-15] VITALS: Ht 170.2 cm; Wt 79.3 kg
[~2022-10-15 20:43] MED LIST changes: -GADOTERATE 0.5 MMOL/ML (CLARISCAN) 15 ML VIAL IV ONE
--- NOTE | 2022-10-15 20:51 | ED Chest Pain ---
General Stated Complaint: CHEST/LEFT ARM PAIN History of Present Illness Date Seen by Provider: Oct 15, 2022 Time Seen by Provider: 20:48 Initial Comments 52-year-old female presents with mild chest discomfort and her left arm feels little bit funny. Patient wanted to be checked out. She has a history of a cardiac stent in 2016. She has had a cardiac cath since then that was negative for any significant stenosis. Patient also had a negative stress test in August 18. She denies any shortness of breath, nausea vomiting diaphoresis pain in her back. Patient reports her symptoms started around 3 hours or so prior to her coming to the ER. She reports that pain comes and goes, nothing makes it worse or better. Allergies and Home Medications Allergies Coded Allergies: amitriptyline (Verified Allergy, Unknown, 10/10/20) oxycodone (Unverified Adverse Reaction, Intermediate, DIZZY, FACE FLUSHES, 05/18/17) oxycodone HCl (Unverified Adverse Reaction, Intermediate, DIZZY, FACE FLUSH, 05/18/17) Sulfa (Sulfonamide Antibiotics) (Unverified Adverse Reaction, Mild, N/V, 05/18/17) tramadol (Unverified Adverse Reaction, Mild, N/V, 05/18/17) Patient Home Medication List Home Medication List Reviewed: Yes Aspirin (Aspirin EC) 81 Mg Tablet., 81 MG PO DAILY, (Reported) Entered as Reported by: NIRANJAN BARNES on 08/12/20 1626 Atorvastatin Calcium (Atorvastatin Calcium) 40 Mg Tablet, 40 MG PO DAILY, (Reported) Entered as Reported by: JAKE HUERTAS on 10/10/20 1041 Duloxetine HCl (Duloxetine HCl) 60 Mg Capsule.dr, 60 MG PO BID, (Reported) Entered as Reported by: NIRANJAN BARNES on 08/12/20 1626 Gabapentin (Gabapentin) 600 Mg Tablet, 600 MG PO TID, (Reported) Entered as Reported by: JAKE HUERTAS on 10/10/20 1041 Hydrochlorothiazide (Hydrochlorothiazide) 50 Mg Tablet, 50 MG PO BID, (Reported) Entered as Reported by: JAKE HUERTAS on 10/10/20 1041 Hydrocodone Bit/Acetaminophen (HYDROcodone/APAP 7.5/325 TAB) 1 Ea Tablet, 1 EA PO Q4H Prescribed by: BRANDON HINTON on 10/16/20 1139 Indomethacin (Indomethacin) 50 Mg Capsule, 50 MG PO TIDWM, (Reported) Entered as Reported by: JAKE HUERTAS on 10/10/20 1041 Levothyroxine Sodium (Levothyroxine Sodium) 137 Mcg Tablet, 137 MCG PO DAILY, (Reported) Entered as Reported by: NIRANJAN BARNES on 05/03/19 1126 Losartan Potassium (Losartan Potassium) 100 Mg Tablet, 100 MG PO DAILY, (Reported) Entered as Reported by: RADHA FARIA on 01/12/18 0923 Metoprolol Succinate (Toprol Xl) 100 Mg Tab.er.24h, 100 MG PO HS, (Reported) Entered as Reported by: JAKE HUERTAS on 10/10/20 1041 Multivits,Ca,Minerals/Iron/FA (Women's Daily Caplet) 1 Each Tablet, 1 EACH PO DAILY, (Reported) Entered as Reported by: NIRANJAN BARNES on 05/03/19 1129 Nitroglycerin (Nitroglycerin) 0.4 Mg Tab.subl, 0.4 MG SL UD PRN for CHEST PAIN, (Reported) Entered as Reported by: MARGOT RIOS on 05/18/17 1210 Walker-3/Dha/Epa/Fish Oil (Fish Oil 1,000 mg Softgel) 1,000 Mg Capsule, 1,000 MG PO BID, (Reported) Entered as Reported by: MARGOT RIOS on 05/18/17 1210 Pantoprazole Sodium (Pantoprazole Sodium) 40 Mg Tablet.dr, 40 MG PO DAILY, (Reported) Entered as Reported by: JENNIFER PEREZ on 11/17/16 0822 Promethazine HCl (Promethazine Tablet) 25 Mg Tablet, 25 MG PO Q6H PRN for NAUSEA/VOMITING, (Reported) Entered as Reported by: JAKE HUERTAS on 10/10/20 1041 Review of Systems Review of Systems Constitutional: No chills, No fever EENTM: No Symptoms Reported Respiratory: No Symptoms Reported Cardiovascular: See HPI Gastrointestinal: No Symptoms Reported Genitourinary: No Symptoms Reported Musculoskeletal: see HPI Skin: no symptoms reported Psychiatric/Neurological: No Symptoms Reported Endocrine: No Symptoms Reported Past Mpogoev-Kdbsom-Gbyzta Hx Immunizations Up To Date PED Vaccines UTD: No Seasonal Allergies Seasonal Allergies: No Past Medical History Surgeries: Yes (cyst removal, CARDIAC STENT, D&C X2, RIGHT SHOULDER LESION W/LYMPH NODE) Appendectomy, Coronary Stent, Hysterectomy, Tubal Ligation Respiratory: No Cardiac: Yes Coronary Artery Disease, Heart Attack, Heart Murmur, High Cholesterol, Hypertension Neurological: Yes Headaches /Migraines, Neuropathy Reproductive Disorders: No 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 Sexually Transmitted Disease: No HIV/AIDS: No Genitourinary: No Gastrointestinal: No Musculoskeletal: Yes Degenerate Disk Disease, Fibromyalgia, Chronic Back Pain Endocrine: Yes Hypothyroidsim HEENT: No Loss of Vision: Bilateral Hearing Impairment: Denies Cancer: Yes Skin Did You Recieve Any Treatments: Yes What Type of Treatment Did You: Surgical Intervention Psychosocial: Yes Anxiety, Depression Integumentary: No Blood Disorders: Yes (HX ANEMIA) Adverse Reaction/Blood Tranf: Yes Family Medical History Diabetes mellitus 19 MOTHER Hypertension 19 MOTHER Thyroid disease 19 MOTHER No Pertinent Family Hx Physical Exam Vital Signs Vital Signs - First Documented 10/15/22 20:46 Temp 36.4 Pulse 77 Resp 20 B/P (MAP) 161/112 (128) Pulse Ox 98 O2 Delivery Room Air Capillary Refill : Height, Weight, BMI Height: 5'7.00" Weight: 160lbs. 0.0oz. 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 Norm as Tested Skin: Normal Color, Warm/Dry Progress/Results/Core Measures Results/Orders Lab Results Laboratory Tests Test 10/15/22 20:52 10/15/22 22:47 Range/Units White Blood Count 10.5 4.3-11.0 10^3/uL Red Blood Count 4.34 3.80-5.11 10^6/uL Hemoglobin 13.4 11.5-16.0 g/dL Hematocrit 39 35-52 % Mean Corpuscular Volume 90 80-99 fL Mean Corpuscular Hemoglobin 31 25-34 pg Mean Corpuscular Hemoglobin Concent 34 32-36 g/dL Red Cell Distribution Width 14.8 H 10.0-14.5 % Platelet Count 484 H 130-400 10^3/uL Mean Platelet Volume 9.7 9.0-12.2 fL Immature Granulocyte % (Auto) 0 % Neutrophils (%) (Auto) 51 42-75 % Lymphocytes (%) (Auto) 40 12-44 % Monocytes (%) (Auto) 7 0-12 % Eosinophils (%) (Auto) 2 0-10 % Basophils (%) (Auto) 0 0-10 % Neutrophils # (Auto) 5.3 1.8-7.8 10^3/uL Lymphocytes # (Auto) 4.2 H 1.0-4.0 10^3/uL Monocytes # (Auto) 0.7 0.0-1.0 10^3/uL Eosinophils # (Auto) 0.2 0.0-0.3 10^3/uL Basophils # (Auto) 0.0 0.0-0.1 10^3/uL Immature Granulocyte # (Auto) 0.0 0.0-0.1 10^3/uL Prothrombin Time 12.7 12.2-14.7 SEC INR Comment 0.9 0.8-1.4 Activated Partial Thromboplast Time 32 24-35 SEC Sodium Level 137 135-145 MMOL/L Potassium Level 4.1 3.6-5.0 MMOL/L Chloride Level 106 98-107 MMOL/L Carbon Dioxide Level 19 L 21-32 MMOL/L Anion Gap 12 5-14 MMOL/L Blood Urea Nitrogen 9 7-18 MG/DL Creatinine 0.73 0.60-1.30 MG/DL Estimat Glomerular Filtration Rate 100 BUN/Creatinine Ratio 12 Glucose Level 100 70-105 MG/DL Calcium Level 9.2 8.5-10.1 MG/DL Corrected Calcium 9.3 8.5-10.1 MG/DL Magnesium Level 2.0 1.6-2.4 MG/DL Total Bilirubin 0.2 0.1-1.0 MG/DL Aspartate Amino Transf (AST/SGOT) 22 5-34 U/L Alanine Aminotransferase (ALT/SGPT) 15 0-55 U/L Alkaline Phosphatase 104 40-136 U/L Myoglobin 63.1 10.0-92.0 NG/ML Troponin I < 0.028 < 0.028 <0.028 NG/ML Total Protein 7.5 6.4-8.2 GM/DL Albumin 3.9 3.2-4.5 GM/DL My Orders Orders - ROBBY STRAUSS DO Ekg Tracing (10/15/22 20:49) Cbc With Automated Diff (10/15/22 20:51) Magnesium (10/15/22 20:51) Chest 1 View, Ap/Pa Only (10/15/22 20:51) Ekg Tracing (10/15/22 20:51) Comprehensive Metabolic Panel (10/15/22 20:51) Myoglobin Serum (10/15/22 20:51) Protime With Inr (10/15/22 20:51) Partial Thromboplastin Time (10/15/22 20:51) Monitor-Rhythm Ecg Trace Only (10/15/22 20:51) Lipid Panel (10/16/22 06:00) Ed Iv/Invasive Line Start (10/15/22 20:51) Aspirin Chewable Tablet (Baby Aspirin Ch (10/15/22 21:00) Troponin I [place] (10/15/22 20:52) Ketorolac Injection (Toradol Injection) (10/15/22 21:31) Famotidine Injection (Pepcid Injection) (10/15/22 21:31) Ekg Tracing (10/15/22 22:34) Troponin I [place] (10/15/22 22:34) Medications Given in ED Current Medications Medications Dose Ordered Sig/Sandra Route Start Time Stop Time Status Last Admin Dose Admin Aspirin 324 mg ONCE ONCE PO 10/15/22 21:00 10/15/22 21:01 DC 10/15/22 21:00 324 MG Vital Signs/I&O 10/15/22 20:46 Temp 36.4 Pulse 77 Resp 20 B/P (MAP) 161/112 (128) Pulse Ox 98 O2 Delivery Room Air Progress Progress Note : Progress Note Patient with 2 EKGs that are unchanged with no acute findings no acute ST elevation. Patient's chest x-ray is stable with some cardiomegaly. Patient had 2 negative troponins and negative labs. Patient was given Pepcid Toradol and her symptoms resolved. Patient greater than 5 to 6 hours following when her symptoms started with 2 negative troponins. We did discuss admission for further troponins and possible repeat stress test. However this time she decided she would declined admission and will follow up with her hurl shaker and see if they would like to do an outpatient stress test. Patient was given return precautions and discharged home. Initial ECG Impression Date: Oct 15, 2022 Initial ECG Impression Time: 20:56 Initial ECG Rhythm: Normal Sinus Comment No acute changes, ventricular rate 73, NV interval 175, sinus rhythm, likely old SD EKG : EKG Time: 23:02 Rhythm: Normal Sinus ECG Comparisson: Unchanged Comment no acute st elevation or changes, similar to previous ekg Diagnostic Imaging Plain Films/CT/US/NM/MRI: chest Comments Date of Exam:10/15/22 CHEST 1 VIEW, AP/PA ONLY INDICATION: Intermittent chest pain with radiation to left arm x 2 hours. TECHNIQUE: Single view chest 9:03 PM. CORRELATION STUDY: 08/12/2020. FINDINGS: Heart size and mediastinum remain mildly prominent but stable. Vasculature within normal limits. The lungs are clear with no consolidating infiltrate. There is no significant effusion or pneumothorax. Mild scoliotic curvature of the visualized spine. IMPRESSION: Borderline heart size without failure, stable. Reviewed: Reviewed by Me, Reviewed/Discussed Departure Impression Primary Impression: Chest pain Qualified Codes: R07.9 - Chest pain, unspecified Disposition: 01 HOME, SELF-CARE Condition: Stable Departure-Patient Inst. Referrals: [facility] (PCP/Family) Primary Care Physician Patient Instructions: Chest Pain (DC) Add. Discharge Instructions: Please follow-up with your primary care provider and hurl shaker the next couple days to discuss repeat stress testing and other outpatient management. Return to the ER with any concerns. ROBBY STRAUSS DO Oct 15, 2022 20:51
[2022-10-15 20:58] LABS: BASOPHILS % (AUTO) 0 % (0-10); EOSINOPHILS # (AUTO) 0.2 10^3/uL (0.0-0.3); EOSINOPHILS % (AUTO) 2 % (0-10); HEMATOCRIT 39 % (35-52); HEMOGLOBIN 13.4 g/dL (11.5-16.0); LYMPHOCYTES # (AUTO) 4.2 10^3/uL (1.0-4.0); LYMPHOCYTES % (AUTO) 40 % (12-44); MEAN CORPUSCULAR HEMOGLOBIN 31 pg (25-34); MEAN CORPUSCULAR HGB CONC 34 g/dL (32-36); MEAN CORPUSCULAR VOLUME 90 fL (80-99); MEAN PLATELET VOLUME 9.7 fL (9.0-12.2); MONOCYTES # (AUTO) 0.7 10^3/uL (0.0-1.0); MONOCYTES % (AUTO) 7 % (0-12); NEUTROPHILS # (AUTO) 5.3 10^3/uL (1.8-7.8); NEUTROPHILS % (AUTO) 51 % (42-75); PLATELET COUNT 484 10^3/uL (130-400); WHITE BLOOD COUNT 10.5 10^3/uL (4.3-11.0)
[2022-10-15] MEDS: ASPIRIN 81 MG CHEW (CHILDREN'S ASA) PO ONE (21:00)
[2022-10-15 21:15] LABS: INR 0.9 (0.8-1.4); PROTHROMBIN TIME PATIENT 12.7 SEC (12.2-14.7)
--- NOTE | 2022-10-15 21:15 | Diagnostic Imaging Report ---
INDICATION: Intermittent chest pain with radiation to left arm x 2 hours. TECHNIQUE: Single view chest 9:03 PM. CORRELATION STUDY: 08/12/2020. FINDINGS: Heart size and mediastinum remain mildly prominent but stable. Vasculature within normal limits. The lungs are clear with no consolidating infiltrate. There is no significant effusion or pneumothorax. Mild scoliotic curvature of the visualized spine. IMPRESSION: Borderline heart size without failure, stable. Dictated by: Dictated on workstation # [id number]
[2022-10-15 21:19] LABS: ALANINE AMINOTRANSFERASE 15 U/L (0-55); ALBUMIN 3.9 GM/DL (3.2-4.5); ALKALINE PHOSPHATASE 104 U/L (40-136); BILIRUBIN,TOTAL 0.2 MG/DL (0.1-1.0); BUN/CREATININE RATIO 12; CALCIUM 9.2 MG/DL (8.5-10.1); CARBON DIOXIDE 19 MMOL/L (21-32); CHLORIDE 106 MMOL/L (98-107); CREATININE SERUM 0.73 MG/DL (0.60-1.30); GFR ESTIMATED 100; GLUCOSE 100 MG/DL (70-105); POTASSIUM 4.1 MMOL/L (3.6-5.0); SODIUM 137 MMOL/L (135-145); TOTAL PROTEIN 7.5 GM/DL (6.4-8.2)
[2022-10-15] MEDS: FAMOTIDINE 20MG/2ML IV (PEPCID) IV STA (21:57)
[2022-10-15] MEDS: KETOROLAC 30 MG/ML VIAL IVP STA (21:57)
[2022-10-15 23:36] VITALS: BP 138/95
== END 2022-10-15 23:39 | disposition home or self-care (01) ==
LOC: EDUNIT# 20:43 → ER 20:44
DX: R07.89 Other chest pain (principal); I51.7 Cardiomegaly; Z28.310 Unvaccinated for COVID-19
CPT/HCPCS: 36415; 71045; 80053; 83735; 83874; 84484; 85025; 85610; 85730; 93005; 93041

== ENCOUNTER → 2023-03-29 | Outpatient (CLI) | payer MEDICAID, OTHER ==
[~2023-03-29] MED LIST changes: -LOSA100T57 PO; +LOSA100T58 PO; -ORPH100T PO; +ORPH100T3 PO
[2023-03-29 11:29] LABS: ALBUMIN 4.1 GM/DL (3.2-4.5); BILIRUBIN,TOTAL 0.3 MG/DL (0.1-1.0); CALCIUM 9.6 MG/DL (8.5-10.1); CREATININE SERUM 0.75 MG/DL (0.60-1.30); POTASSIUM 3.3 MMOL/L (3.6-5.0); TOTAL PROTEIN 7.1 GM/DL (6.4-8.2)
== END ==
LOC: CARD 10:35
PROVIDERS: ATTEND Physician Assistant
DX: I25.10 Atherosclerotic heart disease of native coronary artery without angina pectoris (principal); E78.5 Hyperlipidemia, unspecified; I65.23 Occlusion and stenosis of bilateral carotid arteries; I35.1 Nonrheumatic aortic (valve) insufficiency; I11.9 Hypertensive heart disease without heart failure; Z72.0 Tobacco use
CPT/HCPCS: 80053; 80061; C8929; 36415; 93306